=== PATIENT | female | born 1935 | race Caucasian/White ===

== ENCOUNTER 2021-04-08 15:03 | Inpatient (IN) | payer MEDICARE, SELFPAY ==
--- NOTE | ~2021-04-08 | XR_ITS ---
EXAMINATION: CHEST 2 VIEWS. LEFT HIP AND PELVIS. CLINICAL INFORMATION: Difficulty breathing. Left-sided pain COMPARISON: None TECHNIQUE: 2 views of the chest. 3 views of the left hip. FINDINGS: Chest: Lungs are clear. No acute consolidations or pleural effusions. There is advanced degenerative change in the shoulder joints. Heart size borderline with normal caliber pulmonary vessels. Left hip: There is degenerative change noted but no fracture, dislocation or destructive lesion. Pelvis and right hip intact. There is advanced degenerative change in the lower lumbar spine. XR/XR chest 2V IMPRESSION: Chronic degenerative noted. No acute findings.
--- NOTE | ~2021-04-08 | CT_ITS ---
EXAMINATION: CT HIP WITHOUT CONTRAST, LEFT CLINICAL INFORMATION: Rule out expanding hematoma. COMPARISON: CT of the left femur from the same date at 1:26 AM TECHNIQUE: Multidetector volumetric imaging was obtained through the left hip without contrast material. Multiplanar reformatted images in coronal and sagittal orientations were submitted. This CT examination was performed using dose optimization techniques as appropriate, variously including the following: *Automated exposure control *Adjustment of mA and/or kV according to patient size (this includes techniques or standardized protocols for targeted exams where dose is matched to indication/reason for exam; i.e. extremities or head) *Use of iterative reconstruction technique DLP: 1378 mGy-cm FINDINGS: A multilocular hyperdense collection in the subcutaneous fat at the lateral aspect of the proximal thigh is consistent with the known hematoma. There is marked surrounding fat stranding in this region with smaller, separate, ill-defined, satellite nonorganized components. The dominant component measures 7.2 x 4.4 x 6.4 cm, increased in size from 7.2 x 3 x 5.3 cm on the prior study. Previously seen focus of contrast within the collection has resolved. No involvement of the deep fascial planes. The bones are osteopenic. Mild osteophytes in the left hip. No acute fracture or malalignment. No aggressive osseous lesions. Calcific atherosclerosis is present within the femoral and iliac arteries. CT/CT hip LT wo con IMPRESSION: Slight interval increase in the size of the multilocular hematoma in the subcutaneous fat at the left proximal thigh.
--- NOTE | ~2021-04-08 | CT_ITS ---
EXAMINATION: CT HEAD WITHOUT CONTRAST (STROKE PROTOCOL) CLINICAL INFORMATION: Stroke protocol. Left upper extremity weakness COMPARISON: April 09, 2021 and April 08, 2021 TECHNIQUE: Contiguous axial imaging was performed from the skull base to vertex without intravenous administration of contrast. This CT examination was performed using dose optimization techniques as appropriate, variously including the following: *Automated exposure control *Adjustment of mA and/or kV according to patient size (this includes techniques or standardized protocols for targeted exams where dose is matched to indication/reason for exam; i.e. extremities or head) *Use of iterative reconstruction technique DLP: 878 mGy-cm FINDINGS: There is no intracranial hemorrhage, hematoma, or extra-axial fluid collection. The ventricles, sulci, and cisterns are prominent consistent with atrophic change. The perez-white matter differentiation appears symmetric. There is a large amount of periventricular white matter low density consistent with diffuse microangiopathy.. The calvarium appears intact. There is no pneumocephalus or orbital emphysema. The visualized sinuses and middle ears and mastoid air cells show no significant mucosal thickening. There are no air-fluid levels. CT/CT head for stroke IMPRESSION: No acute intracranial pathology. Diffuse microangiopathy with atrophy. This critical result was discussed with Dr. Mcclain at 1624 hours on April 10, 2021. It was ascertained that the content and urgency of the report was understood at the time of direct communication.
--- NOTE | ~2021-04-08 | CT_ITS ---
EXAMINATION: CT CERVICAL SPINE WITHOUT CONTRAST CLINICAL INFORMATION: Trauma, loss of consciousness. COMPARISON: CT head 04/08/2021, 02/04/2011 TECHNIQUE: Multidetector volumetric CT imaging of the cervical spine is performed without contrast in the axial plane. Additional 2D reformatted coronal and sagittal images are generated on the CT workstation and uploaded to PACS. This CT examination was performed using dose optimization techniques as appropriate, variously including the following: *Automated exposure control *Adjustment of mA and/or kV according to patient size (this includes techniques or standardized protocols for targeted exams where dose is matched to indication/reason for exam; i.e. extremities or head) *Use of iterative reconstruction technique DLP: 425 mGy-cm FINDINGS: There is no visible acute fracture line or vertebral compression or prevertebral soft tissue swelling. The odontoid appears intact. The craniocervical junction is normal. There is reversal cervical lordosis and dextrocurvature cervical spine. Multilevel degenerative disc and prominent multilevel degenerative facet changes are present. Disc narrowing is greatest at C4-C5, C5-C6, and C6-C7 with disc narrowing and endplate sclerosis and vertebral spurring. There is mild grade 0-1 spondylolisthesis at both C3-C4 and C4-C5, likely secondary to the degenerative changes. No perched facet. Paraspinal soft tissues unremarkable. There is no apical pneumothorax. CT/CT cervical spine wo con IMPRESSION: 1. No acute bony abnormality or prevertebral soft tissue swelling. 2. Multilevel degenerative disc and degenerative facet changes. 3. Reversal cervical lordosis with dextrocurvature. Mild grade 0-1 spondylolisthesis at both C3-C4 and C4-C5 likely secondary to the degenerative changes.
--- NOTE | ~2021-04-08 | CT_ITS ---
EXAMINATION: CT HEAD WITHOUT CONTRAST (STROKE PROTOCOL) CLINICAL INFORMATION: Stroke protocol. Left arm weakness and facial droop, new dysarthria. COMPARISON: None TECHNIQUE: Contiguous axial imaging was performed from the skull base to vertex without intravenous administration of contrast. This CT examination was performed using dose optimization techniques as appropriate, variously including the following: *Automated exposure control *Adjustment of mA and/or kV according to patient size (this includes techniques or standardized protocols for targeted exams where dose is matched to indication/reason for exam; i.e. extremities or head) *Use of iterative reconstruction technique DLP: 692 mGy-cm FINDINGS: There is a new area of hypodensity involving the precentral gyrus on the right. Extensive periventricular white matter hypodensities limited sensitivity for the detection of additional areas of attenuation change. No evidence of acute intracranial hemorrhage or extra-axial fluid collection. No evidence of mass lesion, mass effect or midline shift. Ventricles and sulci are commensurate in size in keeping with global volume loss. The calvarium is intact. Limited views of the paranasal sinuses are unremarkable. Mastoid air cells are well aerated and middle ear cavities are clear. Bilateral lens extractions. CT/CT head for stroke IMPRESSION: New focal hypodensity involving the right precentral gyrus is consistent with new acute ischemia. Consider follow-up with stroke MRI for further assessment, especially considering the extensive white matter changes surrounding the ventricles which limits assessment for additional foci of ischemia. This critical result was discussed with BECCA Bradley at 5:45 PM hours on 04/11/2021. It was ascertained that the content and urgency of the report was understood at the time of direct communication.
--- NOTE | ~2021-04-08 | XR_ITS ---
EXAMINATION: XR LUMBOSACRAL SPINE CLINICAL INFORMATION: Fall. COMPARISON: Lumbar spine 08/09/2010. MR lumbar spine 10/30/2010 TECHNIQUE: Three views of the lumbosacral spine. FINDINGS: Chronic depression of the superior endplate of L1 vertebrae unchanged since MR exam of 10/30/2010. No acute fracture. Normal alignment of the vertebrae. There is advanced multilevel degenerative spondylosis. Multilevel disc height narrowing and vertebral endplate spurring with facet joint arthrosis. This is most significant at the lower lumbar discs levels. Heavy vascular calcification of the abdominal aorta. There is no aneurysm. XR/XR lumbar spine 2-3V IMPRESSION: No acute abnormality of lumbar spine. Marked degenerative spondylosis of the spine. Chronic central depression superior endplate of L1.
--- NOTE | ~2021-04-08 | XR_ITS ---
EXAMINATION: CHEST 2 VIEWS. LEFT HIP AND PELVIS. CLINICAL INFORMATION: Difficulty breathing. Left-sided pain COMPARISON: None TECHNIQUE: 2 views of the chest. 3 views of the left hip. FINDINGS: Chest: Lungs are clear. No acute consolidations or pleural effusions. There is advanced degenerative change in the shoulder joints. Heart size borderline with normal caliber pulmonary vessels. Left hip: There is degenerative change noted but no fracture, dislocation or destructive lesion. Pelvis and right hip intact. There is advanced degenerative change in the lower lumbar spine. XR/XR hip LT w PEL1V IMPRESSION: Chronic degenerative noted. No acute findings.
--- NOTE | ~2021-04-08 | CT_ITS ---
EXAMINATION: CT LEFT FEMUR WITH CONTRAST CLINICAL INFORMATION: Concerning for increasing hematoma in lateral femur COMPARISON: Left hip radiographs 04/08/2021 TECHNIQUE: 65 mL Omnipaque 350 intravenous contrast was utilized. Multidetector helical imaging was performed through the left femur. Coronal and sagittal reformatted images were created. DOSE LOWERING TECHNIQUES: This CT examination was performed using dose optimization techniques as appropriate, variously including the following: - Automated exposure control - Adjustment of mA and/or kV according to patient size (this includes techniques or standardized protocols for targeted exams were dose is matched to indication/reason for exam; i.e. extremities or head) - Use of iterative reconstruction technique DLP: 355 mGy-cm FINDINGS: Significantly limited assessment in some regions due to motion artifact. Alignment across the left hip is anatomic with joint space narrowing. No acute fracture is seen. There is degenerative change at the pubic symphysis. Well-corticated, chronic appearing small calcification is noted posterior to the left hip. There is subcutaneous edema lateral to the proximal left femur along with more confluent soft tissue attenuation suspicious for hematoma extending for approximately 8 cm in diameter with surrounding contusion. Extensive vascular calcifications are noted. CT/CT femur LT w con IMPRESSION: Subcutaneous hematoma in the lateral proximal thigh with surrounding contusion.
--- NOTE | ~2021-04-08 | XR_ITS ---
EXAMINATION: XR CHEST CLINICAL INFORMATION: Central line COMPARISON: Chest radiograph from 04/08/2021 TECHNIQUE: Frontal view of the chest was obtained. FINDINGS: Interval placement of a right central venous catheter with its distal tip in the mid to distal SVC. Bilateral low lung volumes. No pneumothorax. Trachea is midline. Pacer pad in the mid chest. Cardiac mediastinal silhouette is stable. No large pleural effusion. Degenerative changes of the thoracolumbar spine and bilateral glenohumeral joints, left greater than right. Soft tissues are unremarkable. XR/XR chest 1V IMPRESSION: 1. Interval placement of a right central venous catheter with its distal tip in the mid to distal SVC. 2. Bilateral low lung volumes.
--- NOTE | ~2021-04-08 | CT_ITS ---
EXAMINATION: CT HEAD WITHOUT CONTRAST CLINICAL INFORMATION: Altered mental status COMPARISON: 04/08/2021 TECHNIQUE: Contiguous axial imaging was performed from the skull base to vertex without intravenous administration of contrast. This CT examination was performed using dose optimization techniques as appropriate, variously including the following: *Automated exposure control *Adjustment of mA and/or kV according to patient size (this includes techniques or standardized protocols for targeted exams where dose is matched to indication/reason for exam; i.e. extremities or head) *Use of iterative reconstruction technique DLP: 1080 mGy-cm FINDINGS: This exam is limited from patient motion. Given this on the imaging submitted no midline shift or mass effect or hemorrhage is visualized. Very limited evaluation of the frontal region. Once again diffuse white matter ischemic change. There is no fracture on the bone windows. Again limited CT/CT head/brain wo con IMPRESSION: Very limited exam from motion as described. On the imaging submitted I am not seeing an acute finding but if clinically warranted consider rescanning Once again atrophy and white matter ischemic changes.
--- NOTE | ~2021-04-08 | CT_ITS ---
EXAMINATION: CT HEAD WITHOUT CONTRAST CLINICAL INFORMATION: Trauma, loss of consciousness COMPARISON: CT head 02/04/2011 TECHNIQUE: Contiguous axial imaging was performed from the skull base to vertex without intravenous administration of contrast. Additional 2-D coronal and sagittal reformatted images are generated on the CT workstation and uploaded to PACS. This CT examination was performed using dose optimization techniques as appropriate, variously including the following: *Automated exposure control *Adjustment of mA and/or kV according to patient size (this includes techniques or standardized protocols for targeted exams where dose is matched to indication/reason for exam; i.e. extremities or head) *Use of iterative reconstruction technique DLP: 1188 mGy-cm FINDINGS: There is no intracranial hemorrhage, hematoma, or extra-axial fluid collection. There are generalized atrophic changes with prominence of the cortical sulci and fissures and cisterns and mild ventricular prominence. No hydrocephalus. There is interval moderate to prominent bilateral periventricular white matter gliosis since prior imaging 2010. No mass effect or edema. Findings are likely related to chronic small vessel ischemic changes.. There are some benign bulky falx calcifications again seen anteriorly. There is no visible acute territorial infarct or mass lesion. The calvarium appears intact. There is no pneumocephalus or orbital emphysema. The visualized sinuses and middle ears and mastoid air cells show no significant mucosal thickening. There are no air-fluid levels. CT/CT head/brain wo con IMPRESSION: 1. No acute intracranial hemorrhage, hematoma, or extra-axial fluid collection. 2. Generalized atrophic changes with moderate to prominent bilateral periventricular white matter gliosis likely related to chronic small vessel ischemic changes. No mass effect or edema.
[2021-04-08 15:22] VITALS: BP 113/64; PULSE 104; RESP 18; TEMP 36.6; O2SAT 97; BMI 32.5
--- NOTE | 2021-04-08 15:25 | ECG_ITS ---
Test Reason : FALL Blood Pressure : / mmHG Vent. Rate : 110 BPM Atrial Rate : 000 BPM P-R Int : 000 ms QRS Dur : 074 ms QT Int : 334 ms P-R-T Axes : 000 -17 -08 degrees QTc Int : 452 ms Atrial fibrillation with rapid ventricular response Nonspecific ST and T wave abnormality Abnormal ECG When compared with ECG of 11-SEP-2008 06:52, Atrial fibrillation has replaced Sinus rhythm Vent. rate has increased BY 43 BPM Nonspecific T wave abnormality now evident in Inferior leads Nonspecific T wave abnormality now evident in Anterior leads Referred By: China Stallworth Electronically Signed By:Ankit Batres
--- NOTE | 2021-04-08 15:41 | ED.FALL ---
HPI - Fall General Chief Complaint: Fall <China Stallworth NP - Last Filed: 04/08/21 18:01> Stated Complaint: FALL <China Stallworth NP - Last Filed: 04/08/21 18:01> Time Seen by Provider: 04/08/21 15:19 <China Stallworth NP - Last Filed: 04/08/21 18:01> Source: EMS <China Stallworth NP - Last Filed: 04/08/21 18:01> Mode of arrival: EMS <China Stallworth NP - Last Filed: 04/08/21 18:01> Limitations: altered mental status <China Stallworth NP - Last Filed: 04/08/21 18:01> History of Present Illness HPI Narrative: 85-year-old female with a history of known left shoulder fracture, AR with stents, afib on eliquis, high blood pressure, high cholesterol, hypothyroidism, congestive heart failure, COPD, chronic neuropathy and pain here with complaints of fall. HPI is very limited due to some confusion. Prior EMS the patient was sitting in her living room on a chair. She stood up and felt dizzy and fell striking her left shoulder and left hip on the corner the chair. This was witnessed by a DOCUMENT MANAGEMENT ANALYST. NO LOC. EMS tells me there was no head strike. But her who I spoke to and per the patient there was a head strike. The patient is on Eliquis and Plavix. EMS was called and the patient was unable to get up independently and so she was transported here to the emergency department. Patient tells me that she is feeling at baseline. She tells me that she does occasionally feel dizzy with movement and has felt this way for quite some time. She denies any associated chest pain, abdominal pain, vomiting, headache, vision changes. She is complaining of left hip pain. Again HPI is limited due to the patient being quite repetitive and limited with information. I called and spoke to Philipp who tells me patient has had forgetfullness and confusion > 1 yr but no diagnosis of dementia. He states we've been for so long and I can't do that to her. <China Stallworth NP - Last Filed: 04/08/21 18:01> Related Data Home Medications: Home Medications Medication Instructions Recorded Confirmed apixaban 5 mg tablet (Eliquis) 5 mg PO BID 04/08/21 04/08/21 calcium citrate 200 mg 2 tab PO BEDTIME 04/08/21 04/08/21 calcium-vitamin D3 6.25 mcg (250 unit) tablet clopidogrel 75 mg tablet 1 tab PO DAILY 04/08/21 04/08/21 duloxetine 30 mg capsule,delayed 1 cap PO BID 04/08/21 04/08/21 release ezetimibe 10 mg tablet 1 tab PO DAILY 04/08/21 04/08/21 fluticasone fur. 100 mcg-umeclid 1 puff INHALATION DAILY 04/08/21 04/08/21 62.5 mcg-vilant 25 mcg inhalat.powder (Trelegy Ellipta) furosemide 40 mg tablet 1 tab PO DAILY 04/08/21 04/08/21 icosapent ethyl 1 gram capsule 2 cap PO BID 04/08/21 04/08/21 (Vascepa) levothyroxine 50 mcg tablet 1 tab PO DAILY 04/08/21 04/08/21 metoprolol succinate 50 mg 1 tab PO DAILY 04/08/21 04/08/21 tablet,extended release 24 hr potassium chloride 10 mEq 40 meq PO DAILY 04/08/21 04/08/21 tablet,extended release(part/cryst) (Klor-Con M) <China Stallworth NP - Last Filed: 04/08/21 18:01> Allergies/Adverse Reactions: Allergies Allergy/AdvReac Type Severity Reaction Status Date / Time Penicillins Allergy Mild RASH Verified 04/08/21 15:30 Eotonib-NDG-DjD Reductase Allergy Unknown MUSCLE Verified 04/08/21 15:30 Inhibitor ACHES AND [Azuibpb-Fzn-Nfz Reductase STIFFNESS Inhibitor] Sulfa (Sulfonamide Allergy Unknown RASH Verified 04/08/21 15:30 Antibiotics) <China Stallworth NP - Last Filed: 04/08/21 18:01> Review of Systems Review of Systems: Limited d/t confusion <China Stallworth NP - Last Filed: 04/08/21 18:01> Yes all other systems are reviewed and are negative <China Stallworth NP - Last Filed: 04/08/21 18:01> Constitutional: Constitutional: Reports no additional constitutional complaints, Denies body ache(s), Denies chills, Denies fever(s), Denies headache(s) and Denies weakness <China Stallworth NP - Last Filed: 04/08/21 18:01> Eyes: Eyes: Reports no additional eye complaints and Denies change in vision <China Stallworth NP - Last Filed: 04/08/21 18:01> ENT: Reports system reviewed and no additional complaints, except as documented, Reports dizziness, Denies headache(s), Denies nasal congestion, Denies nasal discharge and Denies neck pain <China Stallworth NP - Last Filed: 04/08/21 18:01> Cardiovascular: Cardiovascular: Reports no additional cardiovascular complaints, Denies chest pain, Denies leg edema and Denies dyspnea <China Stallworth NP - Last Filed: 04/08/21 18:01> Respiratory: Respiratory: Reports no additional respiratory complaints, Denies cough and Denies dyspnea <China Stallworth NP - Last Filed: 04/08/21 18:01> Gastrointestinal: Gastrointestinal: Reports no additional gastrointestinal complaints, Denies abdominal pain, Denies diarrhea, Denies nausea and Denies vomiting <China Stallworth NP - Last Filed: 04/08/21 18:01> Genitourinary: Genitourinary: Reports no additional female genitourinary complaints and Denies urinary incontinence <China Stallworth NP - Last Filed: 04/08/21 18:01> Musculoskeletal: Musculoskeletal: Reports no additional musculoskeletal complaints, Denies back pain, Reports arthralgias, Denies joint swelling, Denies neck pain, Denies numbness and Denies tingling <China Stallworth NP - Last Filed: 04/08/21 18:01> Integumentary/Breasts: Skin/Breast: Reports system reviewed and no additional complaints, except as docu and Denies rash <China Stallworth NP - Last Filed: 04/08/21 18:01> Neurologic: Reports system reviewed and no additional complaints, except as documented, Reports confusion, Reports dizziness, Denies headache(s), Denies numbness, Denies tingling and Denies weakness <China Stallworth NP - Last Filed: 04/08/21 18:01> Psychiatric: Psychiatric: Reports confusion <China Stallworth NP - Last Filed: 04/08/21 18:01> PMFSH Past Medical History Attestation statement: The following information was validated with the patient. <China Stallworth NP - Last Filed: 04/08/21 18:01> Source: old records reviewed and nursing notes reviewed <China Stallworth NP - Last Filed: 04/08/21 18:01> Medical History: Medical History Atrial fibrillation CHF (congestive heart failure) COPD (chronic obstructive pulmonary disease) High cholesterol HTN (hypertension) Hypothyroid Osteoporosis <China Stallworth NP - Last Filed: 04/08/21 18:01> Social History Social History: Social History Patient Tobacco Use Status: Former Tobacco user Use of substances other than those prescribed or required for medical reasons: No Advance Directives: No Advance Directives Information Provided: Yes <China Stallworth NP - Last Filed: 04/08/21 18:01> Physical Exam Vital Signs: Vital Signs: Last Vital Signs Temp 97.8 F 04/08/21 15:22 Pulse 82 04/09/21 06:23 Resp 18 04/09/21 06:23 BP 134/105 H 04/09/21 06:23 Pulse Ox 98 04/09/21 06:23 BMI result Body Mass Index 32.5 <China Stallworth NP - Last Filed: 04/08/21 18:01> Vital Signs: Last Vital Signs Temp 97.8 F 04/08/21 15:22 Pulse 82 04/09/21 06:23 Resp 18 04/09/21 06:23 BP 134/105 H 04/09/21 06:23 Pulse Ox 98 04/09/21 06:23 BMI result Body Mass Index 32.5 <Brittnee Velasco MD - Last Filed: 04/08/21 21:26> Vital Signs: Last Vital Signs Temp 97.8 F 04/08/21 15:22 Pulse 82 04/09/21 06:23 Resp 18 04/09/21 06:23 BP 134/105 H 04/09/21 06:23 Pulse Ox 98 04/09/21 06:23 BMI result Body Mass Index 32.5 <Lora Walden MD - Last Filed: 04/09/21 00:33> Vital Signs: Last Vital Signs Temp 97.8 F 04/08/21 15:22 Pulse 82 04/09/21 06:23 Resp 18 04/09/21 06:23 BP 134/105 H 04/09/21 06:23 Pulse Ox 98 04/09/21 06:23 BMI result Body Mass Index 32.5 <BECCA Menchaca - Last Filed: 04/09/21 02:31> Vital Signs: Last Vital Signs Temp 97.8 F 04/08/21 15:22 Pulse 82 04/09/21 06:23 Resp 18 04/09/21 06:23 BP 134/105 H 04/09/21 06:23 Pulse Ox 98 04/09/21 06:23 BMI result Body Mass Index 32.5 <BECCA Lemon - Last Filed: 04/09/21 09:03> Const: General: healthy appearing, alert and confusion <China Stallworth NP - Last Filed: 04/08/21 18:01> Orientation/consciousness: oriented to person and confusion <China Stallworth NP - Last Filed: 04/08/21 18:01> Limitations: altered mental status <China Stallworth NP - Last Filed: 04/08/21 18:01> HENMT: Head: Yes normal to inspection <China Stallworth NP - Last Filed: 04/08/21 18:01> Ears: hearing grossly normal bilaterally and TM's normal bilaterally <China Stallworth NP - Last Filed: 04/08/21 18:01> General nose exam: Normal external nose present <China Stallworth NP - Last Filed: 04/08/21 18:01> Face and sinus: Yes normal facial exam <China Stallworth NP - Last Filed: 04/08/21 18:01> Mouth: Normal oral and palatal mucosa present <China Stallworth NP - Last Filed: 04/08/21 18:01> Throat: Yes posterior oropharynx normal, Yes tonsils normal and Yes uvula midline <China Stallworth NP - Last Filed: 04/08/21 18:01> Eyes: General: appearance normal, both eyes and all related structures <China Stallworth NP - Last Filed: 04/08/21 18:01> Pupils: Equal, round and reactive pupils present <China Stallworth NP - Last Filed: 04/08/21 18:01> Neck: Neck: Yes normal visual inspection, Yes full ROM, Yes no lymphadenopathy and Yes no meningeal signs <China Stallworth NP - Last Filed: 04/08/21 18:01> Chest: Chest palpation & inspection: normal inspection of the chest <China Stallworth NP - Last Filed: 04/08/21 18:01> Resp: Effort & Inspection: normal respiratory effort <China Stallworth NP - Last Filed: 04/08/21 18:01> Auscultation: clear to auscultation bilaterally <China Stallworth NP - Last Filed: 04/08/21 18:01> Cardio: Rate: regular rate <China Stallworth NP - Last Filed: 04/08/21 18:01> Rhythm: regular rhythm <China Stallworth NP - Last Filed: 04/08/21 18:01> Peripheral pulses: Peripheral pulses 2+ throughout <China Stallworth NP - Last Filed: 04/08/21 18:01> GI: Inspection: Yes normal to inspection <China Stallworth NP - Last Filed: 04/08/21 18:01> Palpation (GI): Soft to palpation and nontender <China Stallworth NP - Last Filed: 04/08/21 18:01> Auscultation: normal bowel sounds <China Stallworth NP - Last Filed: 04/08/21 18:01> Back/Spine/Pelvis: Thoracic/Lumbar Spine: thoracic and lumbar spine normal to inspection <China Stallwroth NP - Last Filed: 04/08/21 18:01> Skin: General skin exam: no rashes or lesions noted <China Stallworth NP - Last Filed: 04/08/21 18:01> Neuro: General: oriented to person, moves all extremities, no meningeal signs, no focal motor deficits, normal sensation to monofilament and confusion <China Stallworth NP - Last Filed: 04/08/21 18:01> Cranial nerves: Yes Equal, round and reactive pupils present <China Stallworth NP - Last Filed: 04/08/21 18:01> Motor exam (neuro): 5/5 motor strength present throughout <China Stallworth NP - Last Filed: 04/08/21 18:01> Extrem: Other: For the last lateral hip there is a hematoma that is small there is some mild tenderness over the site. Range of motion of the hip is limited due to pain. There is no shortening or deformity or rotation noted <China Stallworth NP - Last Filed: 04/08/21 18:01> General: Yes normal to inspection <China Stallworth NP - Last Filed: 04/08/21 18:01> Course Course Course Narrative: 85-year-old female here with reports of fall which occurred at home just prior to arrival. History of present illness is limited due to some underlying confusion and in addition the patient's is not very reliable to obtain information from. I did speak to both the patient and her . It seems that she may have been sitting in a chair with a DOCUMENT MANAGEMENT ANALYST at her side and stood up felt dizzy causing her to fall hitting her left hip on the chair. There may or may not have been a head strike but there was no loss of consciousness. Patient on arrival to complaining of hip pain. She is alert and oriented to only. I spoke to the and this does appear to be the patient's baseline. Tells me that she has no formal diagnosis of dementia and seems quite apprehensive to bring this up with her primary care doctor. Will check labs, EKG, CT head/cervical spine, CXR/left hip x-ray, COVID screen 1750-CT head and neck are negative. Chest x-ray and left hip x-ray show no acute finding. Labs are unremarkable with the exception of an indeterminate troponin. No EKG changes reports of chest pain. Plan for repeat 3 hour troponin. Additional labs are unremarkable. COVID screen negative. UA is pending. I called and spoke to both the patient's PHILIPP and her daughter Lesli. Patient is quite confused and it seems like she likely has some underlying dementia although the is quite resistant to a diagnosis. The daughter tells me that the patient falls often at home and she often does not sleep well and is up throughout the night. This is quite stressful for for her PHILIPP. They do have physical therapy services and your services at come into the home. Daughter is quite concerned that she may need further services at this time. Therefore [facility] We will have Physical therapy evaluate her in the morning and get case management involved. The family plans on having a family meeting [facility] to discuss what is best for Debbie. -placed in physician observation pending disposition philipp [phone]. daughter lesli [phone]-Sign out to Dwayne HUDSON pending repeat troponin, UA. Medications reconciled. <China Stallworth NP - Last Filed: 04/08/21 18:01> Reevaluation(s) Reevaluation #1: I was informed by the patient's nurse that the patient was found on the floor, sitting. Seems that the patient lowered herself to the end of her bed and slid down to the floor. Lumbar x-ray pending. Sign-out given to Dr. Walden <Brittnee Velasco MD - Last Filed: 04/08/21 21:26> Time: 21:26 <Brittnee Velasco MD - Last Filed: 04/08/21 21:26> Reevaluation #2: Reviewed imaging of lumbar spine and there are no acute findings. Patient reports she is otherwise pain free. <Lora Walden MD - Last Filed: 04/09/21 00:33> Time: 00:33 <Lora Walden MD - Last Filed: 04/09/21 00:33> Reevaluation #3: Nurse made me aware that there was expansion of patient's left femur hematoma and images were negative for fracture. Edis wrap was placed around hematoma. Repeat CBC was ordered and came back at baseline. Patient is sent for femur CT scan to rule out any extravasation and fracture. UA normal. <BECCA Menchaca - Last Filed: 04/09/21 02:31> Additional Reevaluation(s): Patient is sleeping, no apparent distress, respiration even and regular, heart regular rate and rhythm, vital signs were stable. Will continue to monitor, physician observation continues, awaiting physical therapy evaluation <BECCA Lemon - Last Filed: 04/09/21 09:03> MDM - Fall Medical Records Attestation: I reviewed the patient's medical records. <China Stallworth NP - Last Filed: 04/08/21 18:01> Lab Data Attestation: I reviewed the patient's lab results. <China Stallworth NP - Last Filed: 04/08/21 18:01> Result diagrams: : 04/09/21 01:32 04/08/21 15:58 <China Stallworth NP - Last Filed: 04/08/21 18:01> Labs: Lab Results 04/08/21 04/08/21 04/08/21 Range/Units 15:58 15:58 15:58 WBC 8.3 (4.8-10.8) X10*3/uL RBC 4.50 (4.20-5.50) X10*6/uL Hgb 14.9 (12.0-16.0) g/dl Hct 44.6 (37.0-47.0) % MCV 99.1 H (80.0-98.0) fL MCH 33.1 H (27.0-33.0) pg MCHC 33.4 (31.0-35.0) g/dl RDW 13.7 (11.0-16.0) % Plt Count 328 (160-400) X10*3/uL MPV 10.7 (9.4-12.3) fL Immature Gran % (Auto) 0.4 (0.0-0.4) % Neut % (Auto) 62.3 (45-73) % Lymph % (Auto) 23.2 (20-40) % Swisher % (Auto) 11.8 H (2-11) % Eos % (Auto) 1.8 (0-4) % Baso % (Auto) 0.5 (0-2) % Lymph # (Auto) 1.9 (1.2-4.9) X10*3/uL Swisher # (Auto) 1.0 (0.1-1.2) X10*3/uL Eos # (Auto) 0.2 (0.0-0.4) X10*3/uL Baso # (Auto) 0.0 (0.0-0.2) X10*3/uL Abs Immat Gran (auto) 0.03 (0.00-0.03) X10*3/uL Absolute Neuts (auto) 5.2 (2.0-8.3) x10*3/uL Absolute Nucleated RBC 0.000 (0.0-0.012) X10*3/uL Nucleated RBC % (auto) 0.0 (0.0-0.2) /100WBC PT 16.2 H (9.9-13.0) SEC INR 1.4 H (0.9-1.1) Sodium 139 (135-145) mmol/L Potassium 4.3 (3.3-5.1) mmol/L Chloride 101 (96-108) mmol/L Carbon Dioxide 29 (22-29) mmol/L Anion Gap 13 (12-20) BUN 17 H (9-16) mg/dL Creatinine 1.34 (0.5-1.4) mg/dL Estim Creat Clear Calc 31.3 Estimated GFR 38 Random Glucose 120 H (60-115) mg/dL Calcium 10.0 (8.4-10.2) mg/dL Magnesium 2.1 (1.6-2.6) mg/dL Total Bilirubin 0.8 (0.0-1.0) mg/dL Direct Bilirubin 0.3 (0.0-0.5) mg/dL AST 19 (5-31) U/L ALT 17 (0-31) U/L Alkaline Phosphatase 58 (39-117) U/L Troponin I High Sens (<3.5-17.0) ng/L Total Protein 6.3 L (6.5-8.0) g/dL Albumin 3.7 (3.5-5.0) g/dL Urine Color Urine Appearance Urine pH (5.0-8.0) Ur Specific [employer] (1.005-1.025) Urine Protein (NEG-TRACE) MG/DL Urine Glucose (UA) (NEG) MG/DL Urine Ketones (NEG) MG/DL Urine Blood (NEG) Urine Nitrite (NEG) Ur Leukocyte Esterase (NEG) COVID-19 (DC) (Negative) COVID-19 Clin Com 04/08/21 04/08/21 04/08/21 Range/Units 15:58 15:58 23:49 WBC (4.8-10.8) X10*3/uL RBC (4.20-5.50) X10*6/uL Hgb (12.0-16.0) g/dl Hct (37.0-47.0) % MCV (80.0-98.0) fL MCH (27.0-33.0) pg MCHC (31.0-35.0) g/dl RDW (11.0-16.0) % Plt Count (160-400) X10*3/uL MPV (9.4-12.3) fL Immature Gran % (Auto) (0.0-0.4) % Neut % (Auto) (45-73) % Lymph % (Auto) (20-40) % Swisher % (Auto) (2-11) % Eos % (Auto) (0-4) % Baso % (Auto) (0-2) % Lymph # (Auto) (1.2-4.9) X10*3/uL Swisher # (Auto) (0.1-1.2) X10*3/uL Eos # (Auto) (0.0-0.4) X10*3/uL Baso # (Auto) (0.0-0.2) X10*3/uL Abs Immat Gran (auto) (0.00-0.03) X10*3/uL Absolute Neuts (auto) (2.0-8.3) x10*3/uL Absolute Nucleated RBC (0.0-0.012) X10*3/uL Nucleated RBC % (auto) (0.0-0.2) /100WBC PT (9.9-13.0) SEC INR (0.9-1.1) Sodium (135-145) mmol/L Potassium (3.3-5.1) mmol/L Chloride (96-108) mmol/L Carbon Dioxide (22-29) mmol/L Anion Gap (12-20) BUN (9-16) mg/dL Creatinine (0.5-1.4) mg/dL Estim Creat Clear Calc Estimated GFR Random Glucose (60-115) mg/dL Calcium (8.4-10.2) mg/dL Magnesium (1.6-2.6) mg/dL Total Bilirubin (0.0-1.0) mg/dL Direct Bilirubin (0.0-0.5) mg/dL AST (5-31) U/L ALT (0-31) U/L Alkaline Phosphatase (39-117) U/L Troponin I High Sens 12.2 9.5 (<3.5-17.0) ng/L Total Protein (6.5-8.0) g/dL Albumin (3.5-5.0) g/dL Urine Color Urine Appearance Urine pH (5.0-8.0) Ur Specific [employer] (1.005-1.025) Urine Protein (NEG-TRACE) MG/DL Urine Glucose (UA) (NEG) MG/DL Urine Ketones (NEG) MG/DL Urine Blood (NEG) Urine Nitrite (NEG) Ur Leukocyte Esterase (NEG) COVID-19 (DC) Negative (Negative) COVID-19 Clin Com See Note 04/09/21 04/09/21 Range/Units 01:32 01:32 WBC 11.9 H (4.8-10.8) X10*3/uL RBC 4.33 (4.20-5.50) X10*6/uL Hgb 14.5 (12.0-16.0) g/dl Hct 43.0 (37.0-47.0) % MCV 99.3 H (80.0-98.0) fL MCH 33.5 H (27.0-33.0) pg MCHC 33.7 (31.0-35.0) g/dl RDW 13.5 (11.0-16.0) % Plt Count 337 (160-400) X10*3/uL MPV 11.0 (9.4-12.3) fL Immature Gran % (Auto) 0.6 H (0.0-0.4) % Neut % (Auto) 66.8 (45-73) % Lymph % (Auto) 21.3 (20-40) % Swisher % (Auto) 10.6 (2-11) % Eos % (Auto) 0.3 (0-4) % Baso % (Auto) 0.4 (0-2) % Lymph # (Auto) 2.5 (1.2-4.9) X10*3/uL Swisher # (Auto) 1.3 H (0.1-1.2) X10*3/uL Eos # (Auto) 0.0 (0.0-0.4) X10*3/uL Baso # (Auto) 0.1 (0.0-0.2) X10*3/uL Abs Immat Gran (auto) 0.07 H (0.00-0.03) X10*3/uL Absolute Neuts (auto) 8.0 (2.0-8.3) x10*3/uL Absolute Nucleated RBC 0.000 (0.0-0.012) X10*3/uL Nucleated RBC % (auto) 0.0 (0.0-0.2) /100WBC PT (9.9-13.0) SEC INR (0.9-1.1) Sodium (135-145) mmol/L Potassium (3.3-5.1) mmol/L Chloride (96-108) mmol/L Carbon Dioxide (22-29) mmol/L Anion Gap (12-20) BUN (9-16) mg/dL Creatinine (0.5-1.4) mg/dL Estim Creat Clear Calc Estimated GFR Random Glucose (60-115) mg/dL Calcium (8.4-10.2) mg/dL Magnesium (1.6-2.6) mg/dL Total Bilirubin (0.0-1.0) mg/dL Direct Bilirubin (0.0-0.5) mg/dL AST (5-31) U/L ALT (0-31) U/L Alkaline Phosphatase (39-117) U/L Troponin I High Sens (<3.5-17.0) ng/L Total Protein (6.5-8.0) g/dL Albumin (3.5-5.0) g/dL Urine Color YELLOW Urine Appearance CLEAR Urine pH 6.0 (5.0-8.0) Ur Specific [employer] 1.010 (1.005-1.025) Urine Protein NEG (NEG-TRACE) MG/DL Urine Glucose (UA) NEG (NEG) MG/DL Urine Ketones NEG (NEG) MG/DL Urine Blood NEG (NEG) Urine Nitrite NEG (NEG) Ur Leukocyte Esterase NEG (NEG) COVID-19 (DC) (Negative) COVID-19 Clin Com <China Stallworth, PER DIEM REGISTERED NURSE - Last Filed: 04/08/21 18:01> Lab Results 04/08/21 04/08/21 04/08/21 Range/Units 15:58 15:58 15:58 WBC 8.3 (4.8-10.8) X10*3/uL RBC 4.50 (4.20-5.50) X10*6/uL Hgb 14.9 (12.0-16.0) g/dl Hct 44.6 (37.0-47.0) % MCV 99.1 H (80.0-98.0) fL MCH 33.1 H (27.0-33.0) pg MCHC 33.4 (31.0-35.0) g/dl RDW 13.7 (11.0-16.0) % Plt Count 328 (160-400) X10*3/uL MPV 10.7 (9.4-12.3) fL Immature Gran % (Auto) 0.4 (0.0-0.4) % Neut % (Auto) 62.3 (45-73) % Lymph % (Auto) 23.2 (20-40) % Swisher % (Auto) 11.8 H (2-11) % Eos % (Auto) 1.8 (0-4) % Baso % (Auto) 0.5 (0-2) % Lymph # (Auto) 1.9 (1.2-4.9) X10*3/uL Swisher # (Auto) 1.0 (0.1-1.2) X10*3/uL Eos # (Auto) 0.2 (0.0-0.4) X10*3/uL Baso # (Auto) 0.0 (0.0-0.2) X10*3/uL Abs Immat Gran (auto) 0.03 (0.00-0.03) X10*3/uL Absolute Neuts (auto) 5.2 (2.0-8.3) x10*3/uL Absolute Nucleated RBC 0.000 (0.0-0.012) X10*3/uL Nucleated RBC % (auto) 0.0 (0.0-0.2) /100WBC PT 16.2 H (9.9-13.0) SEC INR 1.4 H (0.9-1.1) Sodium 139 (135-145) mmol/L Potassium 4.3 (3.3-5.1) mmol/L Chloride 101 (96-108) mmol/L Carbon Dioxide 29 (22-29) mmol/L Anion Gap 13 (12-20) BUN 17 H (9-16) mg/dL Creatinine 1.34 (0.5-1.4) mg/dL Estim Creat Clear Calc 31.3 Estimated GFR 38 Random Glucose 120 H (60-115) mg/dL Calcium 10.0 (8.4-10.2) mg/dL Magnesium 2.1 (1.6-2.6) mg/dL Total Bilirubin 0.8 (0.0-1.0) mg/dL Direct Bilirubin 0.3 (0.0-0.5) mg/dL AST 19 (5-31) U/L ALT 17 (0-31) U/L Alkaline Phosphatase 58 (39-117) U/L Troponin I High Sens (<3.5-17.0) ng/L Total Protein 6.3 L (6.5-8.0) g/dL Albumin 3.7 (3.5-5.0) g/dL Urine Color Urine Appearance Urine pH (5.0-8.0) Ur Specific [employer] (1.005-1.025) Urine Protein (NEG-TRACE) MG/DL Urine Glucose (UA) (NEG) MG/DL Urine Ketones (NEG) MG/DL Urine Blood (NEG) Urine Nitrite (NEG) Ur Leukocyte Esterase (NEG) COVID-19 (DC) (Negative) COVID-19 Clin Com 12/27/21 12/27/21 12/27/21 Range/Units 15:58 15:58 23:49 WBC (4.8-10.8) X10*3/uL RBC (4.20-5.50) X10*6/uL Hgb (12.0-16.0) g/dl Hct (37.0-47.0) % MCV (80.0-98.0) fL MCH (27.0-33.0) pg MCHC (31.0-35.0) g/dl RDW (11.0-16.0) % Plt Count (160-400) X10*3/uL MPV (9.4-12.3) fL Immature Gran % (Auto) (0.0-0.4) % Neut % (Auto) (45-73) % Lymph % (Auto) (20-40) % Swisher % (Auto) (2-11) % Eos % (Auto) (0-4) % Baso % (Auto) (0-2) % Lymph # (Auto) (1.2-4.9) X10*3/uL Swisher # (Auto) (0.1-1.2) X10*3/uL Eos # (Auto) (0.0-0.4) X10*3/uL Baso # (Auto) (0.0-0.2) X10*3/uL Abs Immat Gran (auto) (0.00-0.03) X10*3/uL Absolute Neuts (auto) (2.0-8.3) x10*3/uL Absolute Nucleated RBC (0.0-0.012) X10*3/uL Nucleated RBC % (auto) (0.0-0.2) /100WBC PT (9.9-13.0) SEC INR (0.9-1.1) Sodium (135-145) mmol/L Potassium (3.3-5.1) mmol/L Chloride (96-108) mmol/L Carbon Dioxide (22-29) mmol/L Anion Gap (12-20) BUN (9-16) mg/dL Creatinine (0.5-1.4) mg/dL Estim Creat Clear Calc Estimated GFR Random Glucose (60-115) mg/dL Calcium (8.4-10.2) mg/dL Magnesium (1.6-2.6) mg/dL Total Bilirubin (0.0-1.0) mg/dL Direct Bilirubin (0.0-0.5) mg/dL AST (5-31) U/L ALT (0-31) U/L Alkaline Phosphatase (39-117) U/L Troponin I High Sens 12.2 9.5 (<3.5-17.0) ng/L Total Protein (6.5-8.0) g/dL Albumin (3.5-5.0) g/dL Urine Color Urine Appearance Urine pH (5.0-8.0) Ur Specific [employer] (1.005-1.025) Urine Protein (NEG-TRACE) MG/DL Urine Glucose (UA) (NEG) MG/DL Urine Ketones (NEG) MG/DL Urine Blood (NEG) Urine Nitrite (NEG) Ur Leukocyte Esterase (NEG) COVID-19 (DC) Negative (Negative) COVID-19 Clin Com See Note 04/09/21 04/09/21 Range/Units 01:32 01:32 WBC 11.9 H (4.8-10.8) X10*3/uL RBC 4.33 (4.20-5.50) X10*6/uL Hgb 14.5 (12.0-16.0) g/dl Hct 43.0 (37.0-47.0) % MCV 99.3 H (80.0-98.0) fL MCH 33.5 H (27.0-33.0) pg MCHC 33.7 (31.0-35.0) g/dl RDW 13.5 (11.0-16.0) % Plt Count 337 (160-400) X10*3/uL MPV 11.0 (9.4-12.3) fL Immature Gran % (Auto) 0.6 H (0.0-0.4) % Neut % (Auto) 66.8 (45-73) % Lymph % (Auto) 21.3 (20-40) % Swisher % (Auto) 10.6 (2-11) % Eos % (Auto) 0.3 (0-4) % Baso % (Auto) 0.4 (0-2) % Lymph # (Auto) 2.5 (1.2-4.9) X10*3/uL Swisher # (Auto) 1.3 H (0.1-1.2) X10*3/uL Eos # (Auto) 0.0 (0.0-0.4) X10*3/uL Baso # (Auto) 0.1 (0.0-0.2) X10*3/uL Abs Immat Gran (auto) 0.07 H (0.00-0.03) X10*3/uL Absolute Neuts (auto) 8.0 (2.0-8.3) x10*3/uL Absolute Nucleated RBC 0.000 (0.0-0.012) X10*3/uL Nucleated RBC % (auto) 0.0 (0.0-0.2) /100WBC PT (9.9-13.0) SEC INR (0.9-1.1) Sodium (135-145) mmol/L Potassium (3.3-5.1) mmol/L Chloride (96-108) mmol/L Carbon Dioxide (22-29) mmol/L Anion Gap (12-20) BUN (9-16) mg/dL Creatinine (0.5-1.4) mg/dL Estim Creat Clear Calc Estimated GFR Random Glucose (60-115) mg/dL Calcium (8.4-10.2) mg/dL Magnesium (1.6-2.6) mg/dL Total Bilirubin (0.0-1.0) mg/dL Direct Bilirubin (0.0-0.5) mg/dL AST (5-31) U/L ALT (0-31) U/L Alkaline Phosphatase (39-117) U/L Troponin I High Sens (<3.5-17.0) ng/L Total Protein (6.5-8.0) g/dL Albumin (3.5-5.0) g/dL Urine Color YELLOW Urine Appearance CLEAR Urine pH 6.0 (5.0-8.0) Ur Specific [employer] 1.010 (1.005-1.025) Urine Protein NEG (NEG-TRACE) MG/DL Urine Glucose (UA) NEG (NEG) MG/DL Urine Ketones NEG (NEG) MG/DL Urine Blood NEG (NEG) Urine Nitrite NEG (NEG) Ur Leukocyte Esterase NEG (NEG) COVID-19 (DC) (Negative) COVID-19 Clin Com <Brittnee Velasco MD - Last Filed: 04/08/21 21:26> Lab Results 04/08/21 04/08/21 04/08/21 Range/Units 15:58 15:58 15:58 WBC 8.3 (4.8-10.8) X10*3/uL RBC 4.50 (4.20-5.50) X10*6/uL Hgb 14.9 (12.0-16.0) g/dl Hct 44.6 (37.0-47.0) % MCV 99.1 H (80.0-98.0) fL MCH 33.1 H (27.0-33.0) pg MCHC 33.4 (31.0-35.0) g/dl RDW 13.7 (11.0-16.0) % Plt Count 328 (160-400) X10*3/uL MPV 10.7 (9.4-12.3) fL Immature Gran % (Auto) 0.4 (0.0-0.4) % Neut % (Auto) 62.3 (45-73) % Lymph % (Auto) 23.2 (20-40) % Swisher % (Auto) 11.8 H (2-11) % Eos % (Auto) 1.8 (0-4) % Baso % (Auto) 0.5 (0-2) % Lymph # (Auto) 1.9 (1.2-4.9) X10*3/uL Swisher # (Auto) 1.0 (0.1-1.2) X10*3/uL Eos # (Auto) 0.2 (0.0-0.4) X10*3/uL Baso # (Auto) 0.0 (0.0-0.2) X10*3/uL Abs Immat Gran (auto) 0.03 (0.00-0.03) X10*3/uL Absolute Neuts (auto) 5.2 (2.0-8.3) x10*3/uL Absolute Nucleated RBC 0.000 (0.0-0.012) X10*3/uL Nucleated RBC % (auto) 0.0 (0.0-0.2) /100WBC PT 16.2 H (9.9-13.0) SEC INR 1.4 H (0.9-1.1) Sodium 139 (135-145) mmol/L Potassium 4.3 (3.3-5.1) mmol/L Chloride 101 (96-108) mmol/L Carbon Dioxide 29 (22-29) mmol/L Anion Gap 13 (12-20) BUN 17 H (9-16) mg/dL Creatinine 1.34 (0.5-1.4) mg/dL Estim Creat Clear Calc 31.3 Estimated GFR 38 Random Glucose 120 H (60-115) mg/dL Calcium 10.0 (8.4-10.2) mg/dL Magnesium 2.1 (1.6-2.6) mg/dL Total Bilirubin 0.8 (0.0-1.0) mg/dL Direct Bilirubin 0.3 (0.0-0.5) mg/dL AST 19 (5-31) U/L ALT 17 (0-31) U/L Alkaline Phosphatase 58 (39-117) U/L Troponin I High Sens (<3.5-17.0) ng/L Total Protein 6.3 L (6.5-8.0) g/dL Albumin 3.7 (3.5-5.0) g/dL Urine Color Urine Appearance Urine pH (5.0-8.0) Ur Specific [employer] (1.005-1.025) Urine Protein (NEG-TRACE) MG/DL Urine Glucose (UA) (NEG) MG/DL Urine Ketones (NEG) MG/DL Urine Blood (NEG) Urine Nitrite (NEG) Ur Leukocyte Esterase (NEG) COVID-19 (DC) (Negative) COVID-19 Clin Com 04/08/21 04/08/21 04/08/21 Range/Units 15:58 15:58 23:49 WBC (4.8-10.8) X10*3/uL RBC (4.20-5.50) X10*6/uL Hgb (12.0-16.0) g/dl Hct (37.0-47.0) % MCV (80.0-98.0) fL MCH (27.0-33.0) pg MCHC (31.0-35.0) g/dl RDW (11.0-16.0) % Plt Count (160-400) X10*3/uL MPV (9.4-12.3) fL Immature Gran % (Auto) (0.0-0.4) % Neut % (Auto) (45-73) % Lymph % (Auto) (20-40) % Swisher % (Auto) (2-11) % Eos % (Auto) (0-4) % Baso % (Auto) (0-2) % Lymph # (Auto) (1.2-4.9) X10*3/uL Swisher # (Auto) (0.1-1.2) X10*3/uL Eos # (Auto) (0.0-0.4) X10*3/uL Baso # (Auto) (0.0-0.2) X10*3/uL Abs Immat Gran (auto) (0.00-0.03) X10*3/uL Absolute Neuts (auto) (2.0-8.3) x10*3/uL Absolute Nucleated RBC (0.0-0.012) X10*3/uL Nucleated RBC % (auto) (0.0-0.2) /100WBC PT (9.9-13.0) SEC INR (0.9-1.1) Sodium (135-145) mmol/L Potassium (3.3-5.1) mmol/L Chloride (96-108) mmol/L Carbon Dioxide (22-29) mmol/L Anion Gap (12-20) BUN (9-16) mg/dL Creatinine (0.5-1.4) mg/dL Estim Creat Clear Calc Estimated GFR Random Glucose (60-115) mg/dL Calcium (8.4-10.2) mg/dL Magnesium (1.6-2.6) mg/dL Total Bilirubin (0.0-1.0) mg/dL Direct Bilirubin (0.0-0.5) mg/dL AST (5-31) U/L ALT (0-31) U/L Alkaline Phosphatase (39-117) U/L Troponin I High Sens 12.2 9.5 (<3.5-17.0) ng/L Total Protein (6.5-8.0) g/dL Albumin (3.5-5.0) g/dL Urine Color Urine Appearance Urine pH (5.0-8.0) Ur Specific [employer] (1.005-1.025) Urine Protein (NEG-TRACE) MG/DL Urine Glucose (UA) (NEG) MG/DL Urine Ketones (NEG) MG/DL Urine Blood (NEG) Urine Nitrite (NEG) Ur Leukocyte Esterase (NEG) COVID-19 (DC) Negative (Negative) COVID-19 Clin Com See Note 04/09/21 04/09/21 Range/Units 01:32 01:32 WBC 11.9 H (4.8-10.8) X10*3/uL RBC 4.33 (4.20-5.50) X10*6/uL Hgb 14.5 (12.0-16.0) g/dl Hct 43.0 (37.0-47.0) % MCV 99.3 H (80.0-98.0) fL MCH 33.5 H (27.0-33.0) pg MCHC 33.7 (31.0-35.0) g/dl RDW 13.5 (11.0-16.0) % Plt Count 337 (160-400) X10*3/uL MPV 11.0 (9.4-12.3) fL Immature Gran % (Auto) 0.6 H (0.0-0.4) % Neut % (Auto) 66.8 (45-73) % Lymph % (Auto) 21.3 (20-40) % Swisher % (Auto) 10.6 (2-11) % Eos % (Auto) 0.3 (0-4) % Baso % (Auto) 0.4 (0-2) % Lymph # (Auto) 2.5 (1.2-4.9) X10*3/uL Swisher # (Auto) 1.3 H (0.1-1.2) X10*3/uL Eos # (Auto) 0.0 (0.0-0.4) X10*3/uL Baso # (Auto) 0.1 (0.0-0.2) X10*3/uL Abs Immat Gran (auto) 0.07 H (0.00-0.03) X10*3/uL Absolute Neuts (auto) 8.0 (2.0-8.3) x10*3/uL Absolute Nucleated RBC 0.000 (0.0-0.012) X10*3/uL Nucleated RBC % (auto) 0.0 (0.0-0.2) /100WBC PT (9.9-13.0) SEC INR (0.9-1.1) Sodium (135-145) mmol/L Potassium (3.3-5.1) mmol/L Chloride (96-108) mmol/L Carbon Dioxide (22-29) mmol/L Anion Gap (12-20) BUN (9-16) mg/dL Creatinine (0.5-1.4) mg/dL Estim Creat Clear Calc Estimated GFR Random Glucose (60-115) mg/dL Calcium (8.4-10.2) mg/dL Magnesium (1.6-2.6) mg/dL Total Bilirubin (0.0-1.0) mg/dL Direct Bilirubin (0.0-0.5) mg/dL AST (5-31) U/L ALT (0-31) U/L Alkaline Phosphatase (39-117) U/L Troponin I High Sens (<3.5-17.0) ng/L Total Protein (6.5-8.0) g/dL Albumin (3.5-5.0) g/dL Urine Color YELLOW Urine Appearance CLEAR Urine pH 6.0 (5.0-8.0) Ur Specific [employer] 1.010 (1.005-1.025) Urine Protein NEG (NEG-TRACE) MG/DL Urine Glucose (UA) NEG (NEG) MG/DL Urine Ketones NEG (NEG) MG/DL Urine Blood NEG (NEG) Urine Nitrite NEG (NEG) Ur Leukocyte Esterase NEG (NEG) COVID-19 (DC) (Negative) COVID-19 Clin Com <Lora Walden MD - Last Filed: 04/09/21 00:33> Lab Results 04/08/21 04/08/21 04/08/21 Range/Units 15:58 15:58 15:58 WBC 8.3 (4.8-10.8) X10*3/uL RBC 4.50 (4.20-5.50) X10*6/uL Hgb 14.9 (12.0-16.0) g/dl Hct 44.6 (37.0-47.0) % MCV 99.1 H (80.0-98.0) fL MCH 33.1 H (27.0-33.0) pg MCHC 33.4 (31.0-35.0) g/dl RDW 13.7 (11.0-16.0) % Plt Count 328 (160-400) X10*3/uL MPV 10.7 (9.4-12.3) fL Immature Gran % (Auto) 0.4 (0.0-0.4) % Neut % (Auto) 62.3 (45-73) % Lymph % (Auto) 23.2 (20-40) % Swisher % (Auto) 11.8 H (2-11) % Eos % (Auto) 1.8 (0-4) % Baso % (Auto) 0.5 (0-2) % Lymph # (Auto) 1.9 (1.2-4.9) X10*3/uL Swisher # (Auto) 1.0 (0.1-1.2) X10*3/uL Eos # (Auto) 0.2 (0.0-0.4) X10*3/uL Baso # (Auto) 0.0 (0.0-0.2) X10*3/uL Abs Immat Gran (auto) 0.03 (0.00-0.03) X10*3/uL Absolute Neuts (auto) 5.2 (2.0-8.3) x10*3/uL Absolute Nucleated RBC 0.000 (0.0-0.012) X10*3/uL Nucleated RBC % (auto) 0.0 (0.0-0.2) /100WBC PT 16.2 H (9.9-13.0) SEC INR 1.4 H (0.9-1.1) Sodium 139 (135-145) mmol/L Potassium 4.3 (3.3-5.1) mmol/L Chloride 101 (96-108) mmol/L Carbon Dioxide 29 (22-29) mmol/L Anion Gap 13 (12-20) BUN 17 H (9-16) mg/dL Creatinine 1.34 (0.5-1.4) mg/dL Estim Creat Clear Calc 31.3 Estimated GFR 38 Random Glucose 120 H (60-115) mg/dL Calcium 10.0 (8.4-10.2) mg/dL Magnesium 2.1 (1.6-2.6) mg/dL Total Bilirubin 0.8 (0.0-1.0) mg/dL Direct Bilirubin 0.3 (0.0-0.5) mg/dL AST 19 (5-31) U/L ALT 17 (0-31) U/L Alkaline Phosphatase 58 (39-117) U/L Troponin I High Sens (<3.5-17.0) ng/L Total Protein 6.3 L (6.5-8.0) g/dL Albumin 3.7 (3.5-5.0) g/dL Urine Color Urine Appearance Urine pH (5.0-8.0) Ur Specific [employer] (1.005-1.025) Urine Protein (NEG-TRACE) MG/DL Urine Glucose (UA) (NEG) MG/DL Urine Ketones (NEG) MG/DL Urine Blood (NEG) Urine Nitrite (NEG) Ur Leukocyte Esterase (NEG) COVID-19 (DC) (Negative) COVID-19 Clin Com 04/08/21 04/08/21 04/08/21 Range/Units 15:58 15:58 23:49 WBC (4.8-10.8) X10*3/uL RBC (4.20-5.50) X10*6/uL Hgb (12.0-16.0) g/dl Hct (37.0-47.0) % MCV (80.0-98.0) fL MCH (27.0-33.0) pg MCHC (31.0-35.0) g/dl RDW (11.0-16.0) % Plt Count (160-400) X10*3/uL MPV (9.4-12.3) fL Immature Gran % (Auto) (0.0-0.4) % Neut % (Auto) (45-73) % Lymph % (Auto) (20-40) % Swisher % (Auto) (2-11) % Eos % (Auto) (0-4) % Baso % (Auto) (0-2) % Lymph # (Auto) (1.2-4.9) X10*3/uL Swisher # (Auto) (0.1-1.2) X10*3/uL Eos # (Auto) (0.0-0.4) X10*3/uL Baso # (Auto) (0.0-0.2) X10*3/uL Abs Immat Gran (auto) (0.00-0.03) X10*3/uL Absolute Neuts (auto) (2.0-8.3) x10*3/uL Absolute Nucleated RBC (0.0-0.012) X10*3/uL Nucleated RBC % (auto) (0.0-0.2) /100WBC PT (9.9-13.0) SEC INR (0.9-1.1) Sodium (135-145) mmol/L Potassium (3.3-5.1) mmol/L Chloride (96-108) mmol/L Carbon Dioxide (22-29) mmol/L Anion Gap (12-20) BUN (9-16) mg/dL Creatinine (0.5-1.4) mg/dL Estim Creat Clear Calc Estimated GFR Random Glucose (60-115) mg/dL Calcium (8.4-10.2) mg/dL Magnesium (1.6-2.6) mg/dL Total Bilirubin (0.0-1.0) mg/dL Direct Bilirubin (0.0-0.5) mg/dL AST (5-31) U/L ALT (0-31) U/L Alkaline Phosphatase (39-117) U/L Troponin I High Sens 12.2 9.5 (<3.5-17.0) ng/L Total Protein (6.5-8.0) g/dL Albumin (3.5-5.0) g/dL Urine Color Urine Appearance Urine pH (5.0-8.0) Ur Specific [employer] (1.005-1.025) Urine Protein (NEG-TRACE) MG/DL Urine Glucose (UA) (NEG) MG/DL Urine Ketones (NEG) MG/DL Urine Blood (NEG) Urine Nitrite (NEG) Ur Leukocyte Esterase (NEG) COVID-19 (DC) Negative (Negative) COVID-19 Clin Com See Note 04/09/21 04/09/21 Range/Units 01:32 01:32 WBC 11.9 H (4.8-10.8) X10*3/uL RBC 4.33 (4.20-5.50) X10*6/uL Hgb 14.5 (12.0-16.0) g/dl Hct 43.0 (37.0-47.0) % MCV 99.3 H (80.0-98.0) fL MCH 33.5 H (27.0-33.0) pg MCHC 33.7 (31.0-35.0) g/dl RDW 13.5 (11.0-16.0) % Plt Count 337 (160-400) X10*3/uL MPV 11.0 (9.4-12.3) fL Immature Gran % (Auto) 0.6 H (0.0-0.4) % Neut % (Auto) 66.8 (45-73) % Lymph % (Auto) 21.3 (20-40) % Swisher % (Auto) 10.6 (2-11) % Eos % (Auto) 0.3 (0-4) % Baso % (Auto) 0.4 (0-2) % Lymph # (Auto) 2.5 (1.2-4.9) X10*3/uL Swisher # (Auto) 1.3 H (0.1-1.2) X10*3/uL Eos # (Auto) 0.0 (0.0-0.4) X10*3/uL Baso # (Auto) 0.1 (0.0-0.2) X10*3/uL Abs Immat Gran (auto) 0.07 H (0.00-0.03) X10*3/uL Absolute Neuts (auto) 8.0 (2.0-8.3) x10*3/uL Absolute Nucleated RBC 0.000 (0.0-0.012) X10*3/uL Nucleated RBC % (auto) 0.0 (0.0-0.2) /100WBC PT (9.9-13.0) SEC INR (0.9-1.1) Sodium (135-145) mmol/L Potassium (3.3-5.1) mmol/L Chloride (96-108) mmol/L Carbon Dioxide (22-29) mmol/L Anion Gap (12-20) BUN (9-16) mg/dL Creatinine (0.5-1.4) mg/dL Estim Creat Clear Calc Estimated GFR Random Glucose (60-115) mg/dL Calcium (8.4-10.2) mg/dL Magnesium (1.6-2.6) mg/dL Total Bilirubin (0.0-1.0) mg/dL Direct Bilirubin (0.0-0.5) mg/dL AST (5-31) U/L ALT (0-31) U/L Alkaline Phosphatase (39-117) U/L Troponin I High Sens (<3.5-17.0) ng/L Total Protein (6.5-8.0) g/dL Albumin (3.5-5.0) g/dL Urine Color YELLOW Urine Appearance CLEAR Urine pH 6.0 (5.0-8.0) Ur Specific [employer] 1.010 (1.005-1.025) Urine Protein NEG (NEG-TRACE) MG/DL Urine Glucose (UA) NEG (NEG) MG/DL Urine Ketones NEG (NEG) MG/DL Urine Blood NEG (NEG) Urine Nitrite NEG (NEG) Ur Leukocyte Esterase NEG (NEG) COVID-19 (DC) (Negative) COVID-19 Clin Com <BECCA Menchaca - Last Filed: 04/09/21 02:31> Lab Results 04/08/21 04/08/21 04/08/21 Range/Units 15:58 15:58 15:58 WBC 8.3 (4.8-10.8) X10*3/uL RBC 4.50 (4.20-5.50) X10*6/uL Hgb 14.9 (12.0-16.0) g/dl Hct 44.6 (37.0-47.0) % MCV 99.1 H (80.0-98.0) fL MCH 33.1 H (27.0-33.0) pg MCHC 33.4 (31.0-35.0) g/dl RDW 13.7 (11.0-16.0) % Plt Count 328 (160-400) X10*3/uL MPV 10.7 (9.4-12.3) fL Immature Gran % (Auto) 0.4 (0.0-0.4) % Neut % (Auto) 62.3 (45-73) % Lymph % (Auto) 23.2 (20-40) % Swisher % (Auto) 11.8 H (2-11) % Eos % (Auto) 1.8 (0-4) % Baso % (Auto) 0.5 (0-2) % Lymph # (Auto) 1.9 (1.2-4.9) X10*3/uL Swisher # (Auto) 1.0 (0.1-1.2) X10*3/uL Eos # (Auto) 0.2 (0.0-0.4) X10*3/uL Baso # (Auto) 0.0 (0.0-0.2) X10*3/uL Abs Immat Gran (auto) 0.03 (0.00-0.03) X10*3/uL Absolute Neuts (auto) 5.2 (2.0-8.3) x10*3/uL Absolute Nucleated RBC 0.000 (0.0-0.012) X10*3/uL Nucleated RBC % (auto) 0.0 (0.0-0.2) /100WBC PT 16.2 H (9.9-13.0) SEC INR 1.4 H (0.9-1.1) Sodium 139 (135-145) mmol/L Potassium 4.3 (3.3-5.1) mmol/L Chloride 101 (96-108) mmol/L Carbon Dioxide 29 (22-29) mmol/L Anion Gap 13 (12-20) BUN 17 H (9-16) mg/dL Creatinine 1.34 (0.5-1.4) mg/dL Estim Creat Clear Calc 31.3 Estimated GFR 38 Random Glucose 120 H (60-115) mg/dL Calcium 10.0 (8.4-10.2) mg/dL Magnesium 2.1 (1.6-2.6) mg/dL Total Bilirubin 0.8 (0.0-1.0) mg/dL Direct Bilirubin 0.3 (0.0-0.5) mg/dL AST 19 (5-31) U/L ALT 17 (0-31) U/L Alkaline Phosphatase 58 (39-117) U/L Troponin I High Sens (<3.5-17.0) ng/L Total Protein 6.3 L (6.5-8.0) g/dL Albumin 3.7 (3.5-5.0) g/dL Urine Color Urine Appearance Urine pH (5.0-8.0) Ur Specific [employer] (1.005-1.025) Urine Protein (NEG-TRACE) MG/DL Urine Glucose (UA) (NEG) MG/DL Urine Ketones (NEG) MG/DL Urine Blood (NEG) Urine Nitrite (NEG) Ur Leukocyte Esterase (NEG) COVID-19 (DC) (Negative) COVID-19 Clin Com 04/08/21 04/08/21 04/08/21 Range/Units 15:58 15:58 23:49 WBC (4.8-10.8) X10*3/uL RBC (4.20-5.50) X10*6/uL Hgb (12.0-16.0) g/dl Hct (37.0-47.0) % MCV (80.0-98.0) fL MCH (27.0-33.0) pg MCHC (31.0-35.0) g/dl RDW (11.0-16.0) % Plt Count (160-400) X10*3/uL MPV (9.4-12.3) fL Immature Gran % (Auto) (0.0-0.4) % Neut % (Auto) (45-73) % Lymph % (Auto) (20-40) % Swisher % (Auto) (2-11) % Eos % (Auto) (0-4) % Baso % (Auto) (0-2) % Lymph # (Auto) (1.2-4.9) X10*3/uL Swisher # (Auto) (0.1-1.2) X10*3/uL Eos # (Auto) (0.0-0.4) X10*3/uL Baso # (Auto) (0.0-0.2) X10*3/uL Abs Immat Gran (auto) (0.00-0.03) X10*3/uL Absolute Neuts (auto) (2.0-8.3) x10*3/uL Absolute Nucleated RBC (0.0-0.012) X10*3/uL Nucleated RBC % (auto) (0.0-0.2) /100WBC PT (9.9-13.0) SEC INR (0.9-1.1) Sodium (135-145) mmol/L Potassium (3.3-5.1) mmol/L Chloride (96-108) mmol/L Carbon Dioxide (22-29) mmol/L Anion Gap (12-20) BUN (9-16) mg/dL Creatinine (0.5-1.4) mg/dL Estim Creat Clear Calc Estimated GFR Random Glucose (60-115) mg/dL Calcium (8.4-10.2) mg/dL Magnesium (1.6-2.6) mg/dL Total Bilirubin (0.0-1.0) mg/dL Direct Bilirubin (0.0-0.5) mg/dL AST (5-31) U/L ALT (0-31) U/L Alkaline Phosphatase (39-117) U/L Troponin I High Sens 12.2 9.5 (<3.5-17.0) ng/L Total Protein (6.5-8.0) g/dL Albumin (3.5-5.0) g/dL Urine Color Urine Appearance Urine pH (5.0-8.0) Ur Specific [employer] (1.005-1.025) Urine Protein (NEG-TRACE) MG/DL Urine Glucose (UA) (NEG) MG/DL Urine Ketones (NEG) MG/DL Urine Blood (NEG) Urine Nitrite (NEG) Ur Leukocyte Esterase (NEG) COVID-19 (DC) Negative (Negative) COVID-19 Clin Com See Note 04/09/21 04/09/21 Range/Units 01:32 01:32 WBC 11.9 H (4.8-10.8) X10*3/uL RBC 4.33 (4.20-5.50) X10*6/uL Hgb 14.5 (12.0-16.0) g/dl Hct 43.0 (37.0-47.0) % MCV 99.3 H (80.0-98.0) fL MCH 33.5 H (27.0-33.0) pg MCHC 33.7 (31.0-35.0) g/dl RDW 13.5 (11.0-16.0) % Plt Count 337 (160-400) X10*3/uL MPV 11.0 (9.4-12.3) fL Immature Gran % (Auto) 0.6 H (0.0-0.4) % Neut % (Auto) 66.8 (45-73) % Lymph % (Auto) 21.3 (20-40) % Swisher % (Auto) 10.6 (2-11) % Eos % (Auto) 0.3 (0-4) % Baso % (Auto) 0.4 (0-2) % Lymph # (Auto) 2.5 (1.2-4.9) X10*3/uL Swisher # (Auto) 1.3 H (0.1-1.2) X10*3/uL Eos # (Auto) 0.0 (0.0-0.4) X10*3/uL Baso # (Auto) 0.1 (0.0-0.2) X10*3/uL Abs Immat Gran (auto) 0.07 H (0.00-0.03) X10*3/uL Absolute Neuts (auto) 8.0 (2.0-8.3) x10*3/uL Absolute Nucleated RBC 0.000 (0.0-0.012) X10*3/uL Nucleated RBC % (auto) 0.0 (0.0-0.2) /100WBC PT (9.9-13.0) SEC INR (0.9-1.1) Sodium (135-145) mmol/L Potassium (3.3-5.1) mmol/L Chloride (96-108) mmol/L Carbon Dioxide (22-29) mmol/L Anion Gap (12-20) BUN (9-16) mg/dL Creatinine (0.5-1.4) mg/dL Estim Creat Clear Calc Estimated GFR Random Glucose (60-115) mg/dL Calcium (8.4-10.2) mg/dL Magnesium (1.6-2.6) mg/dL Total Bilirubin (0.0-1.0) mg/dL Direct Bilirubin (0.0-0.5) mg/dL AST (5-31) U/L ALT (0-31) U/L Alkaline Phosphatase (39-117) U/L Troponin I High Sens (<3.5-17.0) ng/L Total Protein (6.5-8.0) g/dL Albumin (3.5-5.0) g/dL Urine Color YELLOW Urine Appearance CLEAR Urine pH 6.0 (5.0-8.0) Ur Specific [employer] 1.010 (1.005-1.025) Urine Protein NEG (NEG-TRACE) MG/DL Urine Glucose (UA) NEG (NEG) MG/DL Urine Ketones NEG (NEG) MG/DL Urine Blood NEG (NEG) Urine Nitrite NEG (NEG) Ur Leukocyte Esterase NEG (NEG) COVID-19 (DC) (Negative) COVID-19 Clin Com <BECCA Lemon - Last Filed: 04/09/21 09:03> Imaging Data Chest x-ray: Attestation: I personally reviewed and interpreted this imaging study as follows: <China Stallworth NP - Last Filed: 04/08/21 18:01> Radiologist's impression: [place] [address] XRay Report Signed Patient: Debbie Paul MR#: [id number] : 1935 Acct:[id number] Age/Sex: 85 / F ADM Date: 04/08/21 Loc: HO.ED Attending Dr: Ordering Physician: China Stallworth NP Date of Service: 04/08/21 Procedure(s): XR chest 2V Accession Number(s): [id number] cc: China Stallworth NP~ EXAMINATION: CHEST 2 VIEWS. LEFT HIP AND PELVIS. CLINICAL INFORMATION: Difficulty breathing. Left-sided pain? COMPARISON: None? TECHNIQUE: 2 views of the chest. 3 views of the left hip.? FINDINGS: Chest: Lungs are clear. No acute consolidations or pleural effusions. There is advanced degenerative change in the shoulder joints. Heart size borderline with normal caliber pulmonary vessels. Left hip: There is degenerative change noted but no fracture, dislocation or destructive lesion. Pelvis and right hip intact. There is advanced degenerative change in the lower lumbar spine.? XR/XR chest 2V IMPRESSION: Chronic degenerative noted. No acute findings.? <China Stallworth NP - Last Filed: 04/08/21 18:01> hip/pelvis x-ray: Attestation: I personally reviewed and interpreted this imaging study as follows: <China Stallworth NP - Last Filed: 04/08/21 18:01> Radiologist's impression: [address] [address] XRay Report Signed Patient: Debbie Paul MR#: [id number] : 1935 Acct:[id number] Age/Sex: 85 / F ADM Date: 04/08/21 Loc: HO.ED Attending Dr: Ordering Physician: China Stallworth NP Date of Service: 04/08/21 Procedure(s): XR hip LT w PEL1V Accession Number(s): [id number] cc: China Stallworth NP~ EXAMINATION: CHEST 2 VIEWS. LEFT HIP AND PELVIS. CLINICAL INFORMATION: Difficulty breathing. Left-sided pain? COMPARISON: None? TECHNIQUE: 2 views of the chest. 3 views of the left hip.? FINDINGS: Chest: Lungs are clear. No acute consolidations or pleural effusions. There is advanced degenerative change in the shoulder joints. Heart size borderline with normal caliber pulmonary vessels. Left hip: There is degenerative change noted but no fracture, dislocation or destructive lesion. Pelvis and right hip intact. There is advanced degenerative change in the lower lumbar spine.? XR/XR hip LT w PEL1V IMPRESSION: Chronic degenerative noted. No acute findings.? <China Stallworth NP - Last Filed: 04/08/21 18:01> CT scan - head: Attestation: I personally reviewed and interpreted this imaging study as follows: <China Stallworth NP - Last Filed: 04/08/21 18:01> Radiologist's impression: FINDINGS: There is no intracranial hemorrhage, hematoma, or extra-axial fluid collection.? There are generalized atrophic changes with prominence of the cortical sulci and fissures and cisterns and mild ventricular prominence. No hydrocephalus. There is interval moderate to prominent bilateral periventricular white matter gliosis since prior imaging 2010. No mass effect or edema. Findings are likely related to chronic small vessel ischemic changes.. There are some benign bulky falx calcifications again seen anteriorly. There is no visible acute territorial infarct or mass lesion. The calvarium appears intact. There is no pneumocephalus or orbital emphysema.? The visualized sinuses and middle ears and mastoid air cells show no significant mucosal thickening. There are no air-fluid levels. CT/CT head/brain wo con IMPRESSION: ? 1. No acute intracranial hemorrhage, hematoma, or extra-axial fluid collection. 2. Generalized atrophic changes with moderate to prominent bilateral periventricular white matter gliosis likely related to chronic small vessel ischemic changes. No mass effect or edema. <China Stallworth NP - Last Filed: 04/08/21 18:01> cervical spine ct: Attestation: I personally reviewed and interpreted this imaging study as follows: <China Stallworth NP - Last Filed: 04/08/21 18:01> Radiologist's impression: IMPRESSION: 1.? No acute bony abnormality or prevertebral soft tissue swelling. 2. Multilevel degenerative disc and degenerative facet changes. 3. Reversal cervical lordosis with dextrocurvature. Mild grade 0-1 spondylolisthesis at both C3-C4 and C4-C5 likely secondary to the degenerative changes. ? <China Stallworth NP - Last Filed: 04/08/21 18:01> ECG Data Attestation: I personally reviewed and interpreted this ECG as follows: <China Stallworth NP - Last Filed: 04/08/21 18:01> ECG interpretation date: 04/08/21 <China Stallworth NP - Last Filed: 04/08/21 18:01> ECG interpretation time: 15:40 <China Stallworth NP - Last Filed: 04/08/21 18:01> Interpretation: AFib with RVR with rate of 110, normal QRS, normal QT <China Stallworth NP - Last Filed: 04/08/21 18:01> Discharge Plan Discharge Clinical Impression: Fall, Weakness <China Stallworth NP - Last Filed: 04/08/21 18:01> Prescriptions: No Action furosemide 40 mg tablet 1 tab PO DAILY RF: 0 metoprolol succinate 50 mg tablet extended release 24 hr 1 tab PO DAILY RF: 0 clopidogrel 75 mg tablet 1 tab PO DAILY RF: 0 levothyroxine 50 mcg tablet 1 tab PO DAILY RF: 0 ezetimibe 10 mg tablet 1 tab PO DAILY RF: 0 potassium chloride [Klor-Con M10] 10 mEq tablet,ER particles/crystals 40 meq PO DAILY RF: 0 duloxetine 30 mg capsule,delayed release(DR/EC) 1 cap PO BID RF: 0 calcium citrate-vitamin D3 200 mg-6.25 mcg (250 unit) tablet 2 tab PO BEDTIME RF: 0 icosapent ethyl [Vascepa] 1 gram capsule 2 cap PO BID RF: 0 Eliquis 5 mg Tablet 5 mg PO BID RF: 0 Trelegy Ellipta 100-62.5-25 mcg blister with device 1 puff inhalation DAILY RF: 0 <China Stallworth NP - Last Filed: 04/08/21 18:01>
[2021-04-08 16:02] VITALS: BP 120/81; PULSE 105; RESP 18; O2SAT 98
[2021-04-08 16:03] LABS: MANUAL DIFF FLAG NO
--- NOTE | 2021-04-08 16:04 | PC.NURSE ---
Pt confused, baseline per (China HUDSON called), unk details of fall however pt reports left sided leg, hip and arm pain. Unk dizzy prior to fall. A fib on tele rate 90-110. Neuros are intact, speech is clear. Off unit to CT scan at this time
[2021-04-08 16:05] LABS: Basophils Percent Auto 0.5 % (0-2); Eosinophils Absolute Auto 0.2 X10*3/uL (0.0-0.4); Eosinophils Percent Auto 1.8 % (0-4); Hematocrit 44.6 % (37.0-47.0); Hemoglobin 14.9 g/dl (12.0-16.0); Imm Gran Abs Auto 0.03 X10*3/uL (0.00-0.03); Imm Gran Pct Auto 0.4 % (0.0-0.4); Lymphocytes Absolute Auto 1.9 X10*3/uL (1.2-4.9); Lymphocytes Percent Auto 23.2 % (20-40); Mean Corpuscular HGB Conc 33.4 g/dl (31.0-35.0); Mean Corpuscular Hemoglobin 33.1 pg (27.0-33.0); Mean Corpuscular Volume 99.1 fL (80.0-98.0); Mean Platelet Volume 10.7 fL (9.4-12.3); Monocytes Percent Auto 11.8 % (2-11); Neutrophils Absolute Auto 5.2 x10*3/uL (2.0-8.3); Neutrophils Percent Auto 62.3 % (45-73); Platelet Count 328 X10*3/uL (160-400); Red Cell Distribution Width 13.7 % (11.0-16.0); White Blood Count 8.3 X10*3/uL (4.8-10.8)
[2021-04-08 16:12] LABS: INTERNATIONAL NORM RATIO 1.4 (0.9-1.1); Prothrombin Time 16.2 SEC (9.9-13.0)
[2021-04-08 16:21] LABS: COVID-19 Test Negative (Negative)
[2021-04-08 16:24] LABS: Alanine Aminotransferase 17 U/L (0-31); Albumin Level 3.7 g/dL (3.5-5.0); Alkaline Phosphatase 58 U/L (39-117); Anion Gap 13 (12-20); Aspartate Amino Transferase 19 U/L (5-31); Bilirubin Direct 0.3 mg/dL (0.0-0.5); Bilirubin Total 0.8 mg/dL (0.0-1.0); Blood Urea Nitrogen 17 mg/dL (9-16); Carbon Dioxide 29 mmol/L (22-29); Chloride 101 mmol/L (96-108); Creatinine Clr Calc Pharmacy 31.3; Estimated Glomerular Filt Rate 38; Glucose Random 120 mg/dL (60-115); Magnesium 2.1 mg/dL (1.6-2.6); Potassium 4.3 mmol/L (3.3-5.1); Sodium 139 mmol/L (135-145); Total Protein 6.3 g/dL (6.5-8.0)
[2021-04-08 16:27] LABS: Troponin-I High Sensitivity 12.2 ng/L (<3.5-17.0)
--- NOTE | 2021-04-08 20:01 | PC.NURSE ---
spoke with pt's with update, and pt he will call again to find out more info regarding pt's condition. pt resting in stretcher in nad.
--- NOTE | 2021-04-08 21:02 | MHC.CM.ED ---
CM attempted to meet with patient. Pt is confused. Occasionally yells out. Does not know why she is here or how she got here. Will need to speak with . CM called and spoke with Zak Paul, pt . He tells CM that his did not sleep at all last night. He admits to her being confused, but states he loves her and will care for her. He tells CM that he has private pay help through [facility]- ADMISSION NURSE Thursday - Thursday 11am - 2:45 pm and then 6p-8pm. Pt also has home PT for past 2 weeks, but he cannot remember agency. Requests CM speak with his daughter, Stormy Hector. Pt has a wheelchair, walker, commode, and a stair lift at home. Pt has handicapped accessible BR. PCP is Dr. Nick Wilson. HCP/daughter Stormy Hector ([phone]). Copy on chart. Pt is fully vaccinated and boosted with Pfizer. would like his to come home in the morning with continuation of existing services. CM called and spoke with Stormy, HCP/daughter. Stormy is concerned that her mother's dementia has progressed over the past year, although she has not been formally diagnosed and her father has been very reluctant to have her diagnoses. Stormy is concerned that caring for her mother may be too much for her father. States she has been falling, even with help at home. Stormy wants to wait for the PT recommendation in the am. Pt is receiving services through [facility] for PT and has [facility] for ADMISSION NURSE help. Stormy wants to speak with her siblings in the morning after the PT evaluation to develop a plan of care, but thinks they will probably have her mother go home. They pay for [facility] services now. Discussed options for increased home care or 24/7 care if they can afford it. Then there is STR if recommended. Plan is to have the PT evaluation in the am and contact Stormy first with the recommendations. She will speak with her family and her father. No referrals placed at this time. CM to follow for d/c needs.
[2021-04-08] MEDS: Apixaban 5 MG TABLET PO (21:17)
[2021-04-08] MEDS: Calcium + Vitamin D 250 MG TABLET PO (21:17)
[2021-04-08] MEDS: DULoxetine HCl 30 MG CAPSULE.DR PO (21:17)
--- NOTE | 2021-04-08 22:43 | PC.NURSE ---
pt is told several times to not get up. Pt got to end of bed and tried to stand up and fell on her buttock. md at bedside. pt up to stretcher. no bruising of deformity noted to area. pt to x-ray.
--- NOTE | 2021-04-08 23:30 | PC.NURSE ---
pt has a large hematoma to left hip area. IV placed and pt to x-ray in stretcher.
[2021-04-08 23:57] VITALS: BP 132/74; PULSE 63; RESP 14; O2SAT 96
[2021-04-09] VITALS (18 sets, daily range): BP systolic 71–146; BP diastolic 40–105; PULSE 63–152; RESP 12–23; TEMP 36.1–37; O2SAT 91–100
[2021-04-09 00:19] LABS: Troponin-I High Sensitivity 9.5 ng/L (<3.5-17.0)
--- NOTE | 2021-04-09 01:30 | PC.NURSE ---
PT RESTING IN HOSPITAL BED, PT WAKES TO VOICE, RESPIRATIONS EASY, N/L. SKIN W/D. PT CLEANED UP AT THIS TIME AND PT FALLS BACK TO SLEEP. WILL CONTINUE TO MONITOR PT.
[2021-04-09 01:40] LABS: Basophils Absolute Auto 0.1 X10*3/uL (0.0-0.2); Basophils Percent Auto 0.4 % (0-2); Eosinophils Percent Auto 0.3 % (0-4); Hemoglobin 14.5 g/dl (12.0-16.0); Imm Gran Abs Auto 0.07 X10*3/uL (0.00-0.03); Imm Gran Pct Auto 0.6 % (0.0-0.4); Lymphocytes Absolute Auto 2.5 X10*3/uL (1.2-4.9); Lymphocytes Percent Auto 21.3 % (20-40); MANUAL DIFF FLAG NO; Mean Corpuscular HGB Conc 33.7 g/dl (31.0-35.0); Mean Corpuscular Hemoglobin 33.5 pg (27.0-33.0); Mean Corpuscular Volume 99.3 fL (80.0-98.0); Monocytes Absolute Auto 1.3 X10*3/uL (0.1-1.2); Monocytes Percent Auto 10.6 % (2-11); Neutrophils Percent Auto 66.8 % (45-73); Platelet Count 337 X10*3/uL (160-400); Red Blood Count 4.33 X10*6/uL (4.20-5.50); Red Cell Distribution Width 13.5 % (11.0-16.0); White Blood Count 11.9 X10*3/uL (4.8-10.8)
[2021-04-09 01:42] LABS: Appearance Urine CLEAR; Color Urine YELLOW; Glucose Urine UA NEG (NEG); Leukocyte Esterase Urine NEG (NEG); Nitrite Urine NEG (NEG); Urine Blood NEG (NEG); Urine Ketones NEG (NEG); Urine Protein NEG (NEG-TRACE)
[2021-04-09] MEDS: ondansetron HCL 4 MG/2 ML VIAL IVPUSH (02:16)
[2021-04-09] MEDS: Morphine Sulfate 4 MG/ML CARTRIDGE IVPUSH (02:18)
[2021-04-09] MEDS: iohexoL 350 MG/ML 100 ML INFUS..BTL 65 ML IV (02:50)
--- NOTE | 2021-04-09 03:38 | PC.NURSE ---
PT AWAITING FOR FURTHER ORDERS. PT IN NAD AND AWAITING FOR PT EVAL.
--- NOTE | 2021-04-09 09:05 | MHC.CM.ED ---
Patient remains in ER. Physical therapy attempted to evaluate patient. Patient was too somnolent. Nam PARKS aware and will notify T/W when patient wakes up. Spoke with Stormy to provide the above information. Stormy verbalized understanding. Continue to monitor for d/c needs.
--- NOTE | 2021-04-09 11:15 | MHC.CM.ED ---
Physical therapy eval completed. 03/11 or chemical process analyst care is being recommended. Spoke with Stormy via telephone at [phone]. Stormy is agreeable to patient returning home with resumption of services. Patient's and Stormy's sister will come to ER to transport. Continue to monitor for d/c needs.
--- NOTE | 2021-04-09 12:29 | MHC.CM.ED ---
Addendum entered by Janette Selby 04/09/21 14:22: RN attempting to ready pt for d/c to home - pt sluggish - VS obtained and found to be very abnormal. Pt to have stat labs and imaging obtained. Of note, family stated to RN and MD that pt was a DNR/DNI. CM to follow for finalization of d/c plans. Original Note: Spoke with pt's dtr Stormy about pt's return to home with Riya CELESTIN private pay, family support and nilo BUCKNER referral for skilled RN visits. Dtr in agreement with plan and states her father and sister [place] [facility] [place]. F2F uploaded to [facility]: D/C Summary not yet available
--- NOTE | 2021-04-09 13:06 | ECG_ITS ---
Test Reason : TACHYCARDIA Blood Pressure : / mmHG Vent. Rate : 151 BPM Atrial Rate : 000 BPM P-R Int : 000 ms QRS Dur : 072 ms QT Int : 286 ms P-R-T Axes : 000 -16 135 degrees QTc Int : 453 ms Atrial fibrillation with rapid ventricular response Septal infarct , age undetermined ST changes consider lateral ischemia Abnormal ECG When compared with ECG of 08-APR-2021 15:40, Septal infarct is now Present Nonspecific T wave abnormality no longer evident in Inferior leads ST-T changes in Lateral leads Referred By: Sussy Olsen Electronically Signed By:Ankit Batres
[2021-04-09] MEDS: Digoxin 0.5 MG/2 ML AMPUL 0.25 MG IVPUSH (13:30)
[2021-04-09] MEDS: 0.9 % Sodium Chloride 1,000 ML 999 ML IVCONT (13:30)
[2021-04-09 13:38] LABS: MANUAL DIFF FLAG NO
[2021-04-09 13:39] LABS: Basophils Percent Auto 0.3 % (0-2); Hematocrit 39.1 % (37.0-47.0); Hemoglobin 12.9 g/dl (12.0-16.0); Imm Gran Abs Auto 0.08 X10*3/uL (0.00-0.03); Imm Gran Pct Auto 0.7 % (0.0-0.4); Lymphocytes Absolute Auto 1.6 X10*3/uL (1.2-4.9); Lymphocytes Percent Auto 13.4 % (20-40); Mean Corpuscular Hemoglobin 32.9 pg (27.0-33.0); Mean Corpuscular Volume 99.7 fL (80.0-98.0); Mean Platelet Volume 11.1 fL (9.4-12.3); Monocytes Absolute Auto 1.1 X10*3/uL (0.1-1.2); Monocytes Percent Auto 9.3 % (2-11); Neutrophils Absolute Auto 9.3 x10*3/uL (2.0-8.3); Neutrophils Percent Auto 76.3 % (45-73); Platelet Count 359 X10*3/uL (160-400); Red Blood Count 3.92 X10*6/uL (4.20-5.50); Red Cell Distribution Width 13.9 % (11.0-16.0); White Blood Count 12.1 X10*3/uL (4.8-10.8)
[2021-04-09 13:44] LABS: INTERNATIONAL NORM RATIO 1.6 (0.9-1.1); Prothrombin Time 18.5 SEC (9.9-13.0)
[2021-04-09 13:52] LABS: Glucose, Whole Blood 143 mg/dL (60-115)
[2021-04-09 13:54] LABS: Lactic Acid 2.7 mmol/L (0.5-2.0)
[2021-04-09 14:05] LABS: B Type Natriuretic Peptide 490 pg/mL (<100); Troponin-I High Sensitivity 16.9 ng/L (<3.5-17.0)
[2021-04-09 14:16] LABS: Venous Blood Gas Refer to POC result
[2021-04-09 14:17] LABS: VBG Base Excess -1.9 mmol/L; VBG HCO3 25 mmol/L (22-26); VBG pCO2 52 mmHg; VBG pH 7.28 (7.32-7.43); VBG pO2 36 mmHg
--- NOTE | 2021-04-09 14:39 | CA_ITS ---
Transthoracic Echocardiogram Patient (Last, First, Middle): Debbie Paul A Gender: Female Date of : 1935 Age: 85 Procedure Date: 04/09/2021 Procedure Type: Transthoracic Echocardiogram Location: ER Height: 157.48 cm Weight: 80.74 kg BSA: 1.82 m2 Heart Rate: 135 bpm BP: 154 / 92 mmHg Machine Featheredger And Reducer: Referring MD: Brittnee Velasco MD [address] Team Member: Ankit Batres MD Symptoms: Hypotension Study Quality: Good ECG Rhythm: Atrial Fibrillation Conclusions: - Normal left ventricular size and systolic function. - Normal right ventricular cavity size and systolic function. - There is trace mitral valve regurgitation. - There is no evidence of pericardial effusion. Findings Left Ventricle Normal left ventricular size and systolic function. There is mildly increased left ventricular wall thickness. The visually estimated ejection fraction is between 60-65%. There is no evidence of regional wall motion abnormalities. Diastolic function is indeterminate on the basis of available data. Right Ventricle Normal right ventricular cavity size and systolic function. Mitral Valve There is mild mitral annular calcification. There is trace mitral valve regurgitation. Venous The inferior vena cava is normal in size and collapses greater than 50% with inspiration. Pericardium/Pleural There is no evidence of pericardial effusion. Prior Study Comparison No significant change compared to prior study. Measurements 2D Linear Measurements IVSd: 1.04 0.6-0.9/0.6-1.0 cm LVIDd: 3.62 3.9-5.3/4.2-5.9 cm LVIDd Index: 1.99 2.4-3.2/2.2-3.1 cm/m2 LVIDs: 3.19 2.0-3.6 cm LVPWd: 1.01 0.7-1.1 cm LV Mass: 140.24 67-162/88-224 g LV Mass Index: 77.06 43-95/49-115 g/m2 Tricuspid Valve TR Pk Nikko: 2.77 TR Pk Grad: 31.00 Updated in Other Vendor System with Status of Final Ankit Batres MD electronically signed on 04/09/2021 4:34:47 PM with status of Final
--- NOTE | 2021-04-09 14:44 | PM.CNCAR ---
History of Present Illness History of Present Illness Date of Service: 04/09/21 Requesting physician: Brittnee Velasco Chief complaint: Afib with RVR Narrative: 85-year-old female who is a patient of Dr Marilin Luu at [facility]. She has history of frequent falls in the past. She has known history of atrial fibrillation and has been on Eliquis. She is also on Plavix. Previous echocardiography earlier this year at [facility] has shown ejection fraction the normal range. No significant valvular pathology was noted. It appears she presented with the fall and weakness. She was waiting to be placed to a rehab facility. ER physician noted her to be more confused and telemetry showed AFib with RVR. Difficult to know whether she had AFib before or not. It appears she was confused when she came in and there or some memory issues and dementia and background. Patient was arousable and was following commands but blood pressure was undetectable and she was in AFib with RVR. She had fall and left femur area hematoma with bruising. Hemoglobins drop approximately 2 g compared to her admission hemoglobin. No meaningful history is possible from the patient. Doppler blood pressure was approximately 80 mm Hg systolic. [facility] Past Medical History Medical History Atrial fibrillation CHF (congestive heart failure) COPD (chronic obstructive pulmonary disease) High cholesterol HTN (hypertension) Hypothyroid Osteoporosis Social History Social History Patient Tobacco Use Status: Former Tobacco user Use of substances other than those prescribed or required for medical reasons: No Advance Directives: No Advance Directives Information Provided: Yes Meds Allergies Allergy/AdvReac Type Severity Reaction Status Date / Time Penicillins Allergy Mild RASH Verified 04/08/21 15:30 [id number]-FuG Reductase Allergy Unknown MUSCLE Verified 04/08/21 15:30 Inhibitor ACHES AND [Fdbwtwp-Kyc-Pcu Reductase STIFFNESS Inhibitor] Sulfa (Sulfonamide Allergy Unknown RASH Verified 04/08/21 15:30 Antibiotics) Active Medications: Current Medications Apixaban (Apixaban 5 Mg Tablet) 5 mg PO BID [facility] Last Admin: 04/08/21 21:17 Dose: 5 mg Documented by: Calcium Carbonate/Cholecalciferol (Calcium + Vitamin D 250 Mg Tablet) 250 mg PO BEDTIME [facility] Last Admin: 04/08/21 21:17 Dose: 250 mg Documented by: Duloxetine HCl (Duloxetine Hcl 30 Mg Capsule.Dr) 30 mg PO BID [facility] Last Admin: 04/08/21 21:17 Dose: 30 mg Documented by: Ezetimibe (Ezetimibe 10 Mg Tablet) 10 mg PO DAILY [facility] Furosemide (Furosemide 40 Mg Tablet) 40 mg PO DAILY LANIE; Protocol Sodium Chloride (Ns) 1,000 mls @ 999 mls/hr IVCONT .Q1H1M ONE Stop: 04/09/21 15:07 Levothyroxine Sodium (Levothyroxine Sodium 50 Mcg Tablet) 50 mcg PO DAILY@0600 [facility] Metoprolol Succinate (Metoprolol Succinate Er 50 Mg Tab.Er.24h) 50 mg PO DAILY LANIE; Protocol Non-Formulary Medication (Yhlwmyjmeyk-Qsmqadmkv-Jikhygww [Trelegy Ellipta]) 1 puff INHALE DAILY [facility] Non-Formulary Medication (Icosapent Ethyl [Vascepa]) 2 cap PO BID [facility] Pharmacy Consult (Consult Rx Perform Med Rec) 1 each MISCELLANE ONCE PRN PRN Reason: Consult order Potassium Chloride (Potassium Chloride Er 20 Meq Tab.Er.Prt) 40 meq PO DAILY [facility] Home Medications Medication Instructions Recorded Confirmed Last Taken Type apixaban 5 mg tablet (Eliquis) 5 mg PO BID 04/08/21 04/08/21 04/08/21 History calcium citrate 200 mg 2 tab PO BEDTIME 04/08/21 04/08/21 04/07/21 History calcium-vitamin D3 6.25 mcg (250 unit) tablet clopidogrel 75 mg tablet 1 tab PO DAILY 04/08/21 04/08/21 04/08/21 History duloxetine 30 mg capsule,delayed 1 cap PO BID 04/08/21 04/08/21 04/08/21 History release ezetimibe 10 mg tablet 1 tab PO DAILY 04/08/21 04/08/21 04/08/21 History fluticasone fur. 100 mcg-umeclid 1 puff INHALATION DAILY 04/08/21 04/08/21 04/08/21 History 62.5 mcg-vilant 25 mcg inhalat.powder (Trelegy Ellipta) furosemide 40 mg tablet 1 tab PO DAILY 04/08/21 04/08/21 04/08/21 History icosapent ethyl 1 gram capsule 2 cap PO BID 04/08/21 04/08/21 04/08/21 History (Vascepa) levothyroxine 50 mcg tablet 1 tab PO DAILY 04/08/21 04/08/21 04/08/21 History metoprolol succinate 50 mg 1 tab PO DAILY 04/08/21 04/08/21 04/08/21 History tablet,extended release 24 hr potassium chloride 10 mEq 40 meq PO DAILY 04/08/21 04/08/21 04/08/21 History tablet,extended release(part/cryst) (Klor-Con M) Physical Exam Vital Signs: Vital Signs: Last Vital Signs Temp 97.8 F 04/08/21 15:22 Pulse 82 04/09/21 10:36 Resp 18 04/09/21 06:23 BP 134/105 H 04/09/21 06:23 Pulse Ox 98 04/09/21 10:36 BMI result Body Mass Index 32.5 GENERAL APPEARANCE: On non-rebreather, confused but arousable HEART: no murmurs, irregular rate and rhythm. Tachycardia. LUNGS: clear to auscultation anteriorly. ABDOMEN: soft, nontender. EXTREMITIES: no edema. Left buttock area there is a hematoma with bruising. PERIPHERAL PULSES: Difficult to palpate. NEUROLOGIC: Confused but arousable. In pain due to left hip injury. Objective Labs and Meds Result diagrams: 04/09/21 13:31 04/08/21 15:58 Lab results: Laboratory Results - last 24 hr 04/08/21 04/08/21 04/08/21 15:58 15:58 15:58 WBC 8.3 RBC 4.50 Hgb 14.9 Hct 44.6 MCV 99.1 H MCH 33.1 H MCHC 33.4 RDW 13.7 Plt Count 328 MPV 10.7 Immature Gran % (Auto) 0.4 Neut % (Auto) 62.3 Lymph % (Auto) 23.2 [place] % (Auto) 11.8 H Eos % (Auto) 1.8 Baso % (Auto) 0.5 Lymph # (Auto) 1.9 [place] # (Auto) 1.0 Eos # (Auto) 0.2 Baso # (Auto) 0.0 Abs Immat Gran (auto) 0.03 Absolute Neuts (auto) 5.2 Absolute Nucleated RBC 0.000 Nucleated RBC % (auto) 0.0 PT 16.2 H INR 1.4 H VBG pH VBG pCO2 VBG pO2 VBG HCO3 VBG O2 Saturation VBG Base Excess Sodium 139 Potassium 4.3 Chloride 101 Carbon Dioxide 29 Anion Gap 13 BUN 17 H Creatinine 1.34 Estim Creat Clear Calc 31.3 Estimated GFR 38 POC Glucose Random Glucose 120 H Lactic Acid Calcium 10.0 Magnesium 2.1 Total Bilirubin 0.8 Direct Bilirubin 0.3 AST 19 ALT 17 Alkaline Phosphatase 58 Troponin I High Sens B-Natriuretic Peptide Total Protein 6.3 L Albumin 3.7 Urine Color Urine Appearance Urine pH Ur Specific [place] Urine Protein Urine Glucose (UA) Urine Ketones Urine Blood Urine Nitrite Ur Leukocyte Esterase COVID-19 (DC) COVIDLalina 04/08/21 04/08/21 04/08/21 15:58 15:58 23:49 WBC RBC Hgb Hct MCV MCH MCHC RDW Plt Count MPV Immature Gran % (Auto) Neut % (Auto) Lymph % (Auto) [place] % (Auto) Eos % (Auto) Baso % (Auto) Lymph # (Auto) [place] # (Auto) Eos # (Auto) Baso # (Auto) Abs Immat Gran (auto) Absolute Neuts (auto) Absolute Nucleated RBC Nucleated RBC % (auto) PT INR VBG pH VBG pCO2 VBG pO2 VBG HCO3 VBG O2 Saturation VBG Base Excess Sodium Potassium Chloride Carbon Dioxide Anion Gap BUN Creatinine Estim Creat Clear Calc Estimated GFR POC Glucose Random Glucose Lactic Acid Calcium Magnesium Total Bilirubin Direct Bilirubin AST ALT Alkaline Phosphatase Troponin I High Sens 12.2 9.5 B-Natriuretic Peptide Total Protein Albumin Urine Color Urine Appearance Urine pH Ur Specific [place] Urine Protein Urine Glucose (UA) Urine Ketones Urine Blood Urine Nitrite Ur Leukocyte Esterase COVID-19 (DC) Negative COVIDLalina See Note 04/09/21 04/09/21 04/09/21 01:32 01:32 13:31 WBC 11.9 H 12.1 H RBC 4.33 3.92 L Hgb 14.5 12.9 Hct 43.0 39.1 MCV 99.3 H 99.7 H MCH 33.5 H 32.9 MCHC 33.7 33.0 RDW 13.5 13.9 Plt Count 337 359 MPV 11.0 11.1 Immature Gran % (Auto) 0.6 H 0.7 H Neut % (Auto) 66.8 76.3 H Lymph % (Auto) 21.3 13.4 L [place] % (Auto) 10.6 9.3 Eos % (Auto) 0.3 0.0 Baso % (Auto) 0.4 0.3 Lymph # (Auto) 2.5 1.6 [place] # (Auto) 1.3 H 1.1 Eos # (Auto) 0.0 0.0 Baso # (Auto) 0.1 0.0 Abs Immat Gran (auto) 0.07 H 0.08 H Absolute Neuts (auto) 8.0 9.3 H Absolute Nucleated RBC 0.000 0.000 Nucleated RBC % (auto) 0.0 0.0 PT INR VBG pH VBG pCO2 VBG pO2 VBG HCO3 VBG O2 Saturation VBG Base Excess Sodium Potassium Chloride Carbon Dioxide Anion Gap BUN Creatinine Estim Creat Clear Calc Estimated GFR POC Glucose Random Glucose Lactic Acid Calcium Magnesium Total Bilirubin Direct Bilirubin AST ALT Alkaline Phosphatase Troponin I High Sens B-Natriuretic Peptide Total Protein Albumin Urine Color YELLOW Urine Appearance CLEAR Urine pH 6.0 Ur Specific [place] 1.010 Urine Protein NEG Urine Glucose (UA) NEG Urine Ketones NEG Urine Blood NEG Urine Nitrite NEG Ur Leukocyte Esterase NEG COVID-19 (DC) COVID-19 Clin Com 04/09/21 04/09/21 04/09/21 13:31 13:31 13:31 WBC RBC Hgb Hct MCV MCH MCHC RDW Plt Count MPV Immature Gran % (Auto) Neut % (Auto) Lymph % (Auto) [place] % (Auto) Eos % (Auto) Baso % (Auto) Lymph # (Auto) [place] # (Auto) Eos # (Auto) Baso # (Auto) Abs Immat Gran (auto) Absolute Neuts (auto) Absolute Nucleated RBC Nucleated RBC % (auto) PT 18.5 H INR 1.6 H VBG pH VBG pCO2 VBG pO2 VBG HCO3 VBG O2 Saturation VBG Base Excess Sodium Potassium Chloride Carbon Dioxide Anion Gap BUN Creatinine Estim Creat Clear Calc Estimated GFR POC Glucose Random Glucose Lactic Acid 2.7 H* Calcium Magnesium Total Bilirubin Direct Bilirubin AST ALT Alkaline Phosphatase Troponin I High Sens 16.9 D B-Natriuretic Peptide 490 H Total Protein Albumin Urine Color Urine Appearance Urine pH Ur Specific [place] Urine Protein Urine Glucose (UA) Urine Ketones Urine Blood Urine Nitrite Ur Leukocyte Esterase COVID-19 (DC) COVID-19 Clin Com 04/09/21 04/09/21 13:48 14:12 WBC RBC Hgb Hct MCV MCH MCHC RDW Plt Count MPV Immature Gran % (Auto) Neut % (Auto) Lymph % (Auto) [place] % (Auto) Eos % (Auto) Baso % (Auto) Lymph # (Auto) [place] # (Auto) Eos # (Auto) Baso # (Auto) Abs Immat Gran (auto) Absolute Neuts (auto) Absolute Nucleated RBC Nucleated RBC % (auto) PT INR VBG pH 7.28 L VBG pCO2 52 VBG pO2 36 VBG HCO3 25 VBG O2 Saturation 44.0 VBG Base Excess -1.9 Sodium Potassium Chloride Carbon Dioxide Anion Gap BUN Creatinine Estim Creat Clear Calc Estimated GFR POC Glucose 143 H Random Glucose Lactic Acid Calcium Magnesium Total Bilirubin Direct Bilirubin AST ALT Alkaline Phosphatase Troponin I High Sens B-Natriuretic Peptide Total Protein Albumin Urine Color Urine Appearance Urine pH Ur Specific [place] Urine Protein Urine Glucose (UA) Urine Ketones Urine Blood Urine Nitrite Ur Leukocyte Esterase COVID-19 (DC) COVID-19 Clin Com Imaging Radiologist's impression: Impressions Cervical Spine CT 04/08/21 16:17 IMPRESSION: 1. No acute bony abnormality or prevertebral soft tissue swelling. 2. Multilevel degenerative disc and degenerative facet changes. 3. Reversal cervical lordosis with dextrocurvature. Mild grade 0-1 spondylolisthesis at both C3-C4 and C4-C5 likely secondary to the degenerative changes. Head CT 04/08/21 16:18 IMPRESSION: 1. No acute intracranial hemorrhage, hematoma, or extra-axial fluid collection. 2. Generalized atrophic changes with moderate to prominent bilateral periventricular white matter gliosis likely related to chronic small vessel ischemic changes. No mass effect or edema. Chest X-Ray 04/08/21 16:23 IMPRESSION: Chronic degenerative noted. No acute findings. Hip/Pelvis X-Ray 04/08/21 16:23 IMPRESSION: Chronic degenerative noted. No acute findings. Lumbar Spine X-Ray 04/08/21 22:50 IMPRESSION: No acute abnormality of lumbar spine. Marked degenerative spondylosis of the spine. Chronic central depression superior endplate of L1. Femur CT 04/09/21 02:45 IMPRESSION: Subcutaneous hematoma in the lateral proximal thigh with surrounding contusion. Assessment and Plan (1) Afib: Status: Acute (2) Hypotension: Status: Acute 85-year-old female who presented with weakness and fall and had left buttock area hematoma. She is in AFib with RVR and is quite hypertensive at this point. She has been fluid resuscitated appropriately. Potential cause for hypotension is hypovolemia from blood loss forces some infective process. She has AFib with RVR which I think is reaction to hypotension rather than the cause for hypotension. AFib rarely causes any significant hypotension. In any case I think she should be resuscitated. Please send blood cultures. She should have an active type and screen in case she requires blood. We will do a limited echocardiogram to make sure she does not have a pericardial effusion or some other cause for her hypotension. We will follow along with you. Thank you for allowing me to participate in the care of your patient. Please feel free to contact me if you have any questions. Procedures Date of Service Date of Service: 04/09/21
[2021-04-09 14:52] LABS: Alanine Aminotransferase 13 U/L (0-31); Albumin Level 2.9 g/dL (3.5-5.0); Alkaline Phosphatase 47 U/L (39-117); Anion Gap 12 (12-20); Aspartate Amino Transferase 14 U/L (5-31); Bilirubin Direct 0.3 mg/dL (0.0-0.5); Bilirubin Total 0.7 mg/dL (0.0-1.0); Blood Urea Nitrogen 26 mg/dL (9-16); Calcium 8.8 mg/dL (8.4-10.2); Carbon Dioxide 26 mmol/L (22-29); Chloride 107 mmol/L (96-108); Creatinine Clr Calc Pharmacy 22.5; Estimated Glomerular Filt Rate 26; Glucose Random 144 mg/dL (60-115); Potassium 5.2 mmol/L (3.3-5.1); Sodium 140 mmol/L (135-145)
[2021-04-09 15:36] LABS: Reflex Lactate? Lactic Acid Added
--- NOTE | 2021-04-09 17:22 | MHC.CM.PN ---
Addendum entered by Dhara Mendoza 04/09/21 17:40: Pt active with [facility]. Referral was not placed with [facility]. Referral to follow placed with [facility]. Original Note: Pt admitted to ICU, 259. IMM reviewed and signed by HCP/daughterStormy. Copy mailed. Pt responsive to name and pain. On pressors. A-fib with RVR-120's now. Awaiting transfer to ICU. Family and medical claims assistant in to see pt with permission of Kristel SPENCE. Daugther/HCP Stormy Tawny and , Zak in to visit with patient and [place] medical claims assistant. [place] medical claims assistant gave pt sacrament of the sick and prayed with the family. Pt transported to ICU. Belongings given including gold necklace. HCP on file. HCP/daughter Stormy Yoder ([phone]). PCP Nick Wilson. Pt has private pay services through [facility] and PT through [facility]. [facility] has just accepted pt for [facility] today, prior to pt decline in medical condition. Pt uses a wheelchair, walker, commode and stair lift at home. D/C plan pending pt recovery. CM contact information given to Stormy. Also given ICU contact information. CM to follow for d/c needs.
[2021-04-09 17:30] LABS: MANUAL DIFF FLAG NO
[2021-04-09 17:33] LABS: Basophils Percent Auto 0.3 % (0-2); Hematocrit 35.2 % (37.0-47.0); Hemoglobin 11.6 g/dl (12.0-16.0); Imm Gran Abs Auto 0.09 X10*3/uL (0.00-0.03); Imm Gran Pct Auto 0.7 % (0.0-0.4); Lymphocytes Absolute Auto 1.6 X10*3/uL (1.2-4.9); Lymphocytes Percent Auto 12.8 % (20-40); Mean Corpuscular Hemoglobin 33.2 pg (27.0-33.0); Mean Corpuscular Volume 100.9 fL (80.0-98.0); Mean Platelet Volume 11.1 fL (9.4-12.3); Monocytes Absolute Auto 1.2 X10*3/uL (0.1-1.2); Monocytes Percent Auto 9.4 % (2-11); Neutrophils Absolute Auto 9.8 x10*3/uL (2.0-8.3); Neutrophils Percent Auto 76.8 % (45-73); Platelet Count 297 X10*3/uL (160-400); Red Blood Count 3.49 X10*6/uL (4.20-5.50); Red Cell Distribution Width 13.9 % (11.0-16.0); White Blood Count 12.7 X10*3/uL (4.8-10.8)
[2021-04-09] MEDS: Amiodarone/Dextrose 150 MG/100 ML PLAST..BAG 600 MG IV (17:49)
[2021-04-09] MEDS: Albumin Human 25 % 100 ML IV ×2 (17:51→19:56)
[2021-04-09 17:55] LABS: Anion Gap 12 (12-20); Blood Urea Nitrogen 26 mg/dL (9-16); Carbon Dioxide 24 mmol/L (22-29); Chloride 108 mmol/L (96-108); Creatinine Clr Calc Pharmacy 23.3; Estimated Glomerular Filt Rate 27; Glucose Random 143 mg/dL (60-115); Potassium 5.3 mmol/L (3.3-5.1); Sodium 139 mmol/L (135-145)
[2021-04-09] MEDS: Amiodarone HCL 900 MG in 0.9 % Sodium Chloride 500 ML 34.53 MG IVCONT (18:00)
[2021-04-09] MEDS: Phenylephrine HCL 20 MG in 0.9 % Sodium Chloride 250 ML 30.58 MG IVCONT (18:05)
[2021-04-09] MEDS: cefEPime HCl 1 GM in 0.9 % Sodium Chloride 50 ML IV (18:22)
[2021-04-09] MEDS: vancomycin HCL 1,250 MG in 0.9 % Sodium Chloride 250 ML 166.67 MG IV (18:36)
[2021-04-09 18:37] LABS: Appearance Urine CLEAR; Color Urine YELLOW; Glucose Urine UA NEG (NEG); Leukocyte Esterase Urine NEG (NEG); Nitrite Urine NEG (NEG); PH 5.5 (5.0-8.0); UACC Culture Trigger NO; Urine Blood TRACE (NEG); Urine Ketones 5 MG/DL (NEG); Urine Protein TRACE MG/DL (NEG-TRACE)
[2021-04-09 18:44] LABS: Bacteria Urine TRACE /LPF; RBC Urine 0-2 /HPF (0); Squamous Epithelial Cell Urine TRACE /LPF; WBC Urine 0 /HPF (0-4)
--- NOTE | 2021-04-09 18:54 | PC.NURSE ---
Received patient from ER around 1700. Patient arousable to name. Restless with care and yelling out, question altered mental status with unknown baseline by this RN. Difficult to assess orientation. MD aware, no new change from ER presentation per MD. A.Fib on tele HR up to 130s. Multiple ordered meds still flagging and not given in ER. On arrival to unit, patient given Amiodarone loading dose and started on maintenance drip. BP trended down to 71/52 immediately following loading dose, MD aware. Started ordered Bharat drip at starting dose (see JUN). BP improved to 128/40. Remains A.fib but HR trending down to mid 80s on tele, MD aware. 16F Bot[place] catheter inserted per order. Output of 120 ml light luis urine. Outstanding urine collected. Following urine collections, ordered antibiotics administered. Labs collected. RIJ TLC dressing changed. Bedbath given. Placed on prevalon liat system for skin care. Report given to oncoming RN.
[2021-04-09 19:12] LABS: Reflex Lactate? 2 Y
[2021-04-09 19:50] LABS: ~Lactic Acid-LAB USE ONLY 2.7 mmol/L (0.5-2.0)
--- NOTE | 2021-04-09 20:52 | P.HPCC_ITS ---
History of Present Illness Date of Service: 04/09/21 Chief Complaint: Fall 85-year-old female with past medical history of aortic stenosis,? atrial fibrillation ( on Eliquis)? hypertension,? chronic kidney disease stage III,CAD s/p MICHAEL, congestive heart failure,? hypothyroidism,? orthostatic tremors, and? multiple falls at home presented to? emergency department? after? sustaining a? witnessed fall at home on 04/08/21. According to the , patient might have struck her head during the fall, but no loss? of consciousness.? Patient does have a baseline confusion? and forgetfulness that has worsened in the past year. In the emergency room,? patient? initial vital signs and laboratory data were stable on 04/08/21. There was a noticeable hematoma on left hip noted on assessment and confirmed in imaging.? Head CT/cervical spine negative for? acute issues. She was kept in the emergency room for a day for observation.? ? Today,? Patient went? into AFib RVR to 160s,? blood pressure dropped to SBP 70s, and? hematoma was noted to increase in size in imaging. Head CT continues to show no acute bleed.? She required a central line placement and was started on? phenylephrine.? Cardiology consulted in the ED, Dr Payne, who stated hypotension likely a result from is hypovolemia from blood loss forces vs infective process, he also believed AFIB a result from hypotenson. ? She has? mild increase in WBC, no clear source for infection, Urine negative for UTI, no chest pathology and no abdominal complaints.? Hemoglobin did drop from 12.9 to 11.6.? ? Patient be admitted to the ICU for hypovolemic shock requiring pressor support Review of Systems Review of Systems: unable to do due to patient confusion [facility] Past Medical History Medical History Atrial fibrillation CHF (congestive heart failure) COPD (chronic obstructive pulmonary disease) High cholesterol HTN (hypertension) Hypothyroid Osteoporosis Social History Social History Household Members: Family Unable to assess alcohol history related to: Unable to respond Patient Tobacco Use Status: Former Tobacco user Use of substances other than those prescribed or required for medical reasons: Unable to respond Advance Directives: No Advance Directives Information Provided: Yes Recently lost weight without trying: Unsure Nutrition Risks: No Nutritional Risk Patient : No : No Poor oral hygiene: No service: No Current occupational status: retired Meds Allergies Allergy/AdvReac Type Severity Reaction Status Date / Time Penicillins Allergy Mild RASH Verified 04/08/21 15:30 Hfjkikv-[id number]-SkV Reductase Allergy Unknown MUSCLE Verified 04/08/21 15:30 Inhibitor ACHES AND [Xsijdlp-Nqe-Hdh Reductase STIFFNESS Inhibitor] Sulfa (Sulfonamide Allergy Unknown RASH Verified 04/08/21 15:30 Antibiotics) Active Medications: Current Medications Acetaminophen (Acetaminophen 325 Mg Tablet) 650 mg PO Q6H PRN PRN Reason: Pain, Moderate (Pain Scale 4-6 Duloxetine HCl (Duloxetine Hcl 30 Mg Capsule.Dr) 30 mg PO BID [facility] Last Admin: 04/09/21 17:48 Dose: Not Given Documented by: Norepinephrine Bitartrate (Levophed) 8 mg in 250 mls @ 0 mls/hr IVCONT .Q0M LANIE; Protocol Phenylephrine HCl 20 mg/ (Sodium Chloride) 252 mls @ 0 mls/hr IVCONT .Q0M LANIE; Protocol Last Titration: 04/09/21 19:40 Dose: 0.7 mcg/kg/min, 42.81 mls/hr Documented by: Amiodarone HCl 900 mg/ Sodium (Chloride) 518 mls @ 34.533 mls/hr IVCONT .Q15H1M LANIE; Protocol Last Admin: 04/09/21 18:00 Dose: 1 mg/min, 34.53 mls/hr Documented by: Levothyroxine Sodium (Levothyroxine Sodium 50 Mcg Tablet) 50 mcg PO DAILY@0600 [facility] Last Admin: 04/09/21 17:48 Dose: Not Given Documented by: Pharmacy Consult (Consult Rx Perform Med Rec) 1 each MISCELLANE ONCE PRN PRN Reason: Consult order Home Medications Medication Instructions Recorded Confirmed Last Taken Type apixaban 5 mg tablet (Eliquis) 5 mg PO BID 04/08/21 04/08/21 04/08/21 History calcium citrate 200 mg 2 tab PO BEDTIME 04/08/21 04/08/21 04/07/21 History calcium-vitamin D3 6.25 mcg (250 unit) tablet clopidogrel 75 mg tablet 1 tab PO DAILY 12/04/08/21 04/08/21 History duloxetine 30 mg capsule,delayed 1 cap PO BID 04/08/21 04/08/21 04/08/21 History release ezetimibe 10 mg tablet 1 tab PO DAILY 04/08/21 04/08/21 04/08/21 History fluticasone fur. 100 mcg-umeclid 1 puff INHALATION DAILY 04/08/21 04/08/21 04/08/21 History 62.5 mcg-vilant 25 mcg inhalat.powder (Trelegy Ellipta) furosemide 40 mg tablet 1 tab PO DAILY 04/08/21 04/08/21 04/08/21 History icosapent ethyl 1 gram capsule 2 cap PO BID 04/08/21 04/08/21 04/08/21 History (Vascepa) levothyroxine 50 mcg tablet 1 tab PO DAILY 04/08/21 04/08/21 04/08/21 History metoprolol succinate 50 mg 1 tab PO DAILY 04/08/21 04/08/21 04/08/21 History tablet,extended release 24 hr potassium chloride 10 mEq 40 meq PO DAILY 04/08/21 04/08/21 04/08/21 History tablet,extended release(part/cryst) (Klor-Con M) Physical Exam Vital Signs: Vital Signs: Last Vital Signs Temp 98.4 F 04/09/21 20:00 Pulse 104 H 04/09/21 20:00 Resp 20 04/09/21 20:00 BP 128/66 04/09/21 20:00 Pulse Ox 97 04/09/21 20:00 Oxygen Flow Rate 4 04/09/21 15:08 BMI result Body Mass Index 32.5 Constitutional: Elderly female, alert, in no acute distress. Mental Status: Oriented to person only. able to answer some yes and no questions Eyes: Pupils are equal, round and reactive to light. Ear, Nose and Throat: Oropharynx clear, mucous membranes moist. Neck: Supple, Full range of motion. Respiratory: Clear to auscultation. No wheezing, rales or rhonchi. Respiration rate is regular nonlabored Cardiovascular: atrial fibrillation rate control. No murmurs, rubs or gallops. No edema Gastrointestinal: Abdomen soft, non-tender, non-distended. Normal bowel sounds. Neurologic: Appears grossly intact .moves all extremities spontaneously. Sensation intact bilaterally. Skin: Left thigh hematoma. No rashes? Musculoskeletal: Left arm with very limited range of motion. Ambulates with a walker. No cyanosis or clubbing. No gross deformities. Results Labs CBC and Chem 7: 04/09/21 17:24 04/09/21 17:24 Labs: Laboratory Results - last 24 hr 04/08/21 04/09/21 04/09/21 23:49 01:32 01:32 MCV 99.3 H MCH 33.5 H MCHC 33.7 RDW 13.5 Plt Count 337 MPV 11.0 Immature Gran % (Auto) 0.6 H Neut % (Auto) 66.8 Lymph % (Auto) 21.3 [place] % (Auto) 10.6 Eos % (Auto) 0.3 Baso % (Auto) 0.4 Lymph # (Auto) 2.5 [place] # (Auto) 1.3 H Eos # (Auto) 0.0 Baso # (Auto) 0.1 Abs Immat Gran (auto) 0.07 H Absolute Neuts (auto) 8.0 Absolute Nucleated RBC 0.000 Nucleated RBC % (auto) 0.0 PT INR VBG pH VBG pCO2 VBG pO2 VBG HCO3 VBG O2 Saturation VBG Base Excess Anion Gap Estim Creat Clear Calc Estimated GFR POC Glucose Random Glucose Lactic Acid Lactic Acid F/U @ 2Hr Lactic Acid F/U @ 4Hr Calcium Total Bilirubin Direct Bilirubin AST ALT Alkaline Phosphatase Troponin I High Sens 9.5 B-Natriuretic Peptide Total Protein Albumin Urine Color YELLOW Urine Appearance CLEAR Urine pH 6.0 Ur Specific [place] 1.010 Urine Protein NEG Urine Glucose (UA) NEG Urine Ketones NEG Urine Blood NEG Urine Nitrite NEG Ur Leukocyte Esterase NEG Urine RBC Urine WBC Ur Squamous Epith Cells Urine Bacteria Blood Type Antibody Screen Crossmatch 04/09/21 04/09/21 04/09/21 13:31 13:31 13:31 MCV 99.7 H MCH 32.9 MCHC 33.0 RDW 13.9 Plt Count 359 MPV 11.1 Immature Gran % (Auto) 0.7 H Neut % (Auto) 76.3 H Lymph % (Auto) 13.4 L [place] % (Auto) 9.3 Eos % (Auto) 0.0 Baso % (Auto) 0.3 Lymph # (Auto) 1.6 [place] # (Auto) 1.1 Eos # (Auto) 0.0 Baso # (Auto) 0.0 Abs Immat Gran (auto) 0.08 H Absolute Neuts (auto) 9.3 H Absolute Nucleated RBC 0.000 Nucleated RBC % (auto) 0.0 PT 18.5 H INR 1.6 H VBG pH VBG pCO2 VBG pO2 VBG HCO3 VBG O2 Saturation VBG Base Excess Anion Gap Estim Creat Clear Calc Estimated GFR POC Glucose Random Glucose Lactic Acid 2.7 H* Lactic Acid F/U @ 2Hr Lactic Acid F/U @ 4Hr Calcium Total Bilirubin Direct Bilirubin AST ALT Alkaline Phosphatase Troponin I High Sens B-Natriuretic Peptide Total Protein Albumin Urine Color Urine Appearance Urine pH Ur Specific [place] Urine Protein Urine Glucose (UA) Urine Ketones Urine Blood Urine Nitrite Ur Leukocyte Esterase Urine RBC Urine WBC Ur Squamous Epith Cells Urine Bacteria Blood Type Antibody Screen Crossmatch 04/09/21 04/09/21 04/09/21 13:31 13:48 14:06 MCV MCH MCHC RDW Plt Count MPV Immature Gran % (Auto) Neut % (Auto) Lymph % (Auto) [place] % (Auto) Eos % (Auto) Baso % (Auto) Lymph # (Auto) [place] # (Auto) Eos # (Auto) Baso # (Auto) Abs Immat Gran (auto) Absolute Neuts (auto) Absolute Nucleated RBC Nucleated RBC % (auto) PT INR VBG pH VBG pCO2 VBG pO2 VBG HCO3 VBG O2 Saturation VBG Base Excess Anion Gap 12 Estim Creat Clear Calc 22.5 Estimated GFR 26 POC Glucose 143 H Random Glucose 144 H Lactic Acid Lactic Acid F/U @ 2Hr Lactic Acid F/U @ 4Hr Calcium 8.8 D Total Bilirubin 0.7 Direct Bilirubin 0.3 AST 14 ALT 13 Alkaline Phosphatase 47 Troponin I High Sens 16.9 D B-Natriuretic Peptide 490 H Total Protein 5.0 L D Albumin 2.9 L D Urine Color Urine Appearance Urine pH Ur Specific [place] Urine Protein Urine Glucose (UA) Urine Ketones Urine Blood Urine Nitrite Ur Leukocyte Esterase Urine RBC Urine WBC Ur Squamous Epith Cells Urine Bacteria Blood Type Antibody Screen Crossmatch 04/09/21 04/09/21 04/09/21 14:12 15:44 17:05 MCV MCH MCHC RDW Plt Count MPV Immature Gran % (Auto) Neut % (Auto) Lymph % (Auto) [place] % (Auto) Eos % (Auto) Baso % (Auto) Lymph # (Auto) [place] # (Auto) Eos # (Auto) Baso # (Auto) Abs Immat Gran (auto) Absolute Neuts (auto) Absolute Nucleated RBC Nucleated RBC % (auto) PT INR VBG pH 7.28 L VBG pCO2 52 VBG pO2 36 VBG HCO3 25 VBG O2 Saturation 44.0 VBG Base Excess -1.9 Anion Gap Estim Creat Clear Calc Estimated GFR POC Glucose Random Glucose Lactic Acid Lactic Acid F/U @ 2Hr 4.0 H* Lactic Acid F/U @ 4Hr Calcium Total Bilirubin Direct Bilirubin AST ALT Alkaline Phosphatase Troponin I High Sens B-Natriuretic Peptide Total Protein Albumin Urine Color Urine Appearance Urine pH Ur Specific [place] Urine Protein Urine Glucose (UA) Urine Ketones Urine Blood Urine Nitrite Ur Leukocyte Esterase Urine RBC Urine WBC Ur Squamous Epith Cells Urine Bacteria Blood Type O Positive Antibody Screen NEGATIVE Crossmatch See Detail 04/09/21 04/09/21 04/09/21 17:24 17:24 18:28 MCV 100.9 H MCH 33.2 H MCHC 33.0 RDW 13.9 Plt Count 297 MPV 11.1 Immature Gran % (Auto) 0.7 H Neut % (Auto) 76.8 H Lymph % (Auto) 12.8 L [place] % (Auto) 9.4 Eos % (Auto) 0.0 Baso % (Auto) 0.3 Lymph # (Auto) 1.6 [place] # (Auto) 1.2 Eos # (Auto) 0.0 Baso # (Auto) 0.0 Abs Immat Gran (auto) 0.09 H Absolute Neuts (auto) 9.8 H Absolute Nucleated RBC 0.000 Nucleated RBC % (auto) 0.0 PT INR VBG pH VBG pCO2 VBG pO2 VBG HCO3 VBG O2 Saturation VBG Base Excess Anion Gap 12 Estim Creat Clear Calc 23.3 Estimated GFR 27 POC Glucose Random Glucose 143 H Lactic Acid Lactic Acid F/U @ 2Hr Lactic Acid F/U @ 4Hr Calcium 9.0 Total Bilirubin Direct Bilirubin AST ALT Alkaline Phosphatase Troponin I High Sens B-Natriuretic Peptide Total Protein Albumin Urine Color YELLOW Urine Appearance CLEAR Urine pH 5.5 Ur Specific [place] 1.010 Urine Protein TRACE Urine Glucose (UA) NEG Urine Ketones 5 Urine Blood TRACE Urine Nitrite NEG Ur Leukocyte Esterase NEG Urine RBC 0-2 Urine WBC 0 Ur Squamous Epith Cells TRACE Urine Bacteria TRACE Blood Type Antibody Screen Crossmatch 04/09/21 19:22 MCV MCH MCHC RDW Plt Count MPV Immature Gran % (Auto) Neut % (Auto) Lymph % (Auto) [place] % (Auto) Eos % (Auto) Baso % (Auto) Lymph # (Auto) [place] # (Auto) Eos # (Auto) Baso # (Auto) Abs Immat Gran (auto) Absolute Neuts (auto) Absolute Nucleated RBC Nucleated RBC % (auto) PT INR VBG pH VBG pCO2 VBG pO2 VBG HCO3 VBG O2 Saturation VBG Base Excess Anion Gap Estim Creat Clear Calc Estimated GFR POC Glucose Random Glucose Lactic Acid Lactic Acid F/U @ 2Hr Lactic Acid F/U @ 4Hr 2.7 H* Calcium Total Bilirubin Direct Bilirubin AST ALT Alkaline Phosphatase Troponin I High Sens B-Natriuretic Peptide Total Protein Albumin Urine Color Urine Appearance Urine pH Ur Specific [place] Urine Protein Urine Glucose (UA) Urine Ketones Urine Blood Urine Nitrite Ur Leukocyte Esterase Urine RBC Urine WBC Ur Squamous Epith Cells Urine Bacteria Blood Type Antibody Screen Crossmatch Imaging Radiologist's Impressions: Impressions Lumbar Spine X-Ray 04/08/21 22:50 IMPRESSION: No acute abnormality of lumbar spine. Marked degenerative spondylosis of the spine. Chronic central depression superior endplate of L1. Femur CT 04/09/21 02:45 IMPRESSION: Subcutaneous hematoma in the lateral proximal thigh with surrounding contusion. Head CT 04/09/21 14:50 IMPRESSION: Very limited exam from motion as described. On the imaging submitted I am not seeing an acute finding but if clinically warranted consider rescanning Once again atrophy and white matter ischemic changes. Hip CT 04/09/21 14:50 IMPRESSION: Slight interval increase in the size of the multilocular hematoma in the subcutaneous fat at the left proximal thigh. Chest X-Ray 04/09/21 16:24 IMPRESSION: 1. Interval placement of a right central venous catheter with its distal tip in the mid to distal SVC. 2. Bilateral low lung volumes. Assessment and Plan (1) Hypovolemic shock: Status: Acute (2) Atrial fibrillation with rapid ventricular response: Status: Acute (3) TABBY (acute kidney injury): Status: Acute (4) Leukocytosis: Status: Acute (5) Hyperkalemia: Status: Acute (6) Fall: Status: Acute 85-year-old female with past medical history of multiple falls at home,? being admitted to the ICU for hypovolemic shock likely from hematoma sustained post fall Neuro:? Fall-? witnessed,? seems? to have hit her head,? but no loss of consciousness.? Head CT/cervical spine negative for acute bleed.? Continue to monitor neuro closely ? Confusion, patient only alert x self, according to daughter Debbie ( [phone]), who is a nurse, reports patient confusion has gotten worse since the summer. States patient being alert x self is more of her baseline.? Cardiac:?? Hypovolemic shock-? Patient hypotension,? elevated lactated to 4, and drop of hgb from 12.9 to 11.6 due to increase in size of hematoma.? She is on Eliquis at home likely? adding to worsening of hematoma. This is likely hypovolemia vs infectious source. There no evidence of acute infection.? On? phenylephrine.? Received x 1 liter of fluids in ED.? Will add albumin for cont fluid resuscitation without. ? Wean off pressors when appropriate.? ?Atrial fibrillation? with RVR- ? she is on Eliquis at home. patient AFib with RVR up to 160s,? received digoxin in the emergency room.? Started on amiodarone? in the ICU,? which achieved rate control.? Try to maintain HR < 120s. Wean amio drip as tolerated? ? Pulmonary:? ?No acute issues Renal:? TABBY-? ? most likely related to hypoperfusion, nonoliguric. ? Received fluids in the ED? Continue to check renal induces and urine output. Continue to closely monitor renal indices. ?Hyperkalemia-? K was 5.3 today,? no T-wave abnormality. ? Receive lactulose,? will repeat BMP.? Endo:? No acute issues.?? GI:? no acute issues ID:? WBC elevated to 12.? No acute infectious process in Chest XRAY. ? Urine negative for UTI.? elevated white count likely elevated from? inflammatory processes after fall.? Continue to closely monitor CBC Heme/Onc:?? ?Hematoma:? hemoglobin drop from 12.59-11.? Closely monitor for? expanding hematoma.? Continue to trend hemoglobin.? Transfuse < 7 ?No acute issues Psych:? No acute issues. Miscellaneous:? no acute issues CODE: ? DNR/DNI confirmed with daughter Debbie? ? Critical care time:? x90 minutes of critical care time ? Case discussed with attending Dr. Mcclain? Critical Care Time Critical Care Time (minutes): 90
[2021-04-09] MEDS: DULoxetine HCl 30 MG CAPSULE.DR PO (22:26)
[2021-04-09] MEDS: Phenylephrine HCL 20 MG in 0.9 % Sodium Chloride 250 ML 42.81 MG IVCONT (23:15)
[2021-04-10] VITALS (24 sets, daily range): BP systolic 92–154; BP diastolic 36–100; PULSE 76–114; RESP 13–30; TEMP 36.3–37.2; O2SAT 92–99; BMI 35.9
[2021-04-10 03:36] LABS: MANUAL DIFF FLAG NO
[2021-04-10 03:38] LABS: Basophils Percent Auto 0.4 % (0-2); Eosinophils Percent Auto 0.2 % (0-4); Hematocrit 25.8 % (37.0-47.0); Hemoglobin 8.5 g/dl (12.0-16.0); Imm Gran Abs Auto 0.07 X10*3/uL (0.00-0.03); Imm Gran Pct Auto 0.7 % (0.0-0.4); Lymphocytes Absolute Auto 1.8 X10*3/uL (1.2-4.9); Lymphocytes Percent Auto 17.7 % (20-40); Mean Corpuscular HGB Conc 32.9 g/dl (31.0-35.0); Mean Corpuscular Hemoglobin 33.6 pg (27.0-33.0); Monocytes Absolute Auto 1.2 X10*3/uL (0.1-1.2); Monocytes Percent Auto 12.1 % (2-11); Neutrophils Absolute Auto 7.1 x10*3/uL (2.0-8.3); Neutrophils Percent Auto 68.9 % (45-73); Platelet Count 231 X10*3/uL (160-400); Red Blood Count 2.53 X10*6/uL (4.20-5.50); White Blood Count 10.2 X10*3/uL (4.8-10.8)
[2021-04-10 03:42] LABS: VBG Base Excess -1.7 mmol/L; VBG HCO3 19 mmol/L (22-26); VBG pCO2 20 mmHg; VBG pH 7.56 (7.32-7.43); VBG pO2 97 mmHg
[2021-04-10 04:02] LABS: Alanine Aminotransferase 12 U/L (0-31); Albumin Level 3.6 g/dL (3.5-5.0); Alkaline Phosphatase 35 U/L (39-117); Anion Gap 16 (12-20); Aspartate Amino Transferase 13 U/L (5-31); Bilirubin Total 0.9 mg/dL (0.0-1.0); Blood Urea Nitrogen 26 mg/dL (9-16); Calcium 8.7 mg/dL (8.4-10.2); Carbon Dioxide 20 mmol/L (22-29); Chloride 110 mmol/L (96-108); Creatinine Clr Calc Pharmacy 27.2; Estimated Glomerular Filt Rate 32; Glucose Random 111 mg/dL (60-115); Magnesium 1.9 mg/dL (1.6-2.6); Phosphorus 3.8 mg/dL (2.7-4.5); Sodium 142 mmol/L (135-145); Total Protein 5.2 g/dL (6.5-8.0)
[2021-04-10] MEDS: Acetaminophen 325 MG TABLET 650 MG PO (04:35)
[2021-04-10] MEDS: Phenylephrine HCL 20 MG in 0.9 % Sodium Chloride 250 ML 42.81 MG IVCONT (04:36)
[2021-04-10] MEDS: Levothyroxine Sodium 50 MCG TABLET PO (05:33)
--- NOTE | 2021-04-10 06:37 | PC.NURSE ---
Recieved pt. Pt was noted to be confused and did not respond to questioning. pt moaned did not report pain when questioned. It was recieved in report that this may be part of her baseline. Pt pupils are perrl, pt did not follow commands. As the night progressed pt became more awake and conversational. Pt at 0600 was responding to questions appropriately however she is forgetful, and reptitive and needs redirection/reorientation. Pt does know the month and her name but did not know she was in the hospital. Pt is able to move all ext independently. Pt is in afib 90s- 110s. She was hypotensive in the 80's on initial assessment, TARIK was increased to 0.7 with good effect and BP through the night 100-120's. Pt was on amiodarone at 1mg until midnight when the rate was reduced to 0.5mg per protocol. Pt LS are dim. No cough. Pt did not have a BM. She was able to swallow food and drink appropriately. She did take PO Meds. - pt has tadeo catheter with output 10-40ml/hr of concentrated urine. Pt has mild weakness and has had multiple falls recently. Skin- pt has a large bruise with hematoma on left hip. Skin was marked to map bruising. No pressure injury noted. At 0600 pt began to pull at TLC however was redirectable but did require multiple redirections.
[2021-04-10 06:53] LABS: Venous Blood Gas Refer to POC result
--- NOTE | 2021-04-10 08:21 | P.CDIC_ITS ---
CDI Concurrent Query Documentation Clarification: PHYSICIAN'S DOCUMENTATION REQUEST Date of Query: 04/10/21820 Patient Name: Debbie Paul Admit Date: 04/09/21 Dear Doctor, A review of the medical record indicates additional documentation may be needed. Please review below and update the documentation accordingly. Clinical Indicators: Risk Factors/Clinical Indicators/Treatments Altered mental status, no history Dementia Per H&P: Confusion, patient only alert to self, according to daughter, reports patient confusion has gotten worse since summer States patient being alert to self is baseline Based on the above, could you clarify in the Progress Notes which, if any of the following, is the most likely etiology of the confusion/altered mental status? * Encephalopathy - indicate type such as metabolic, toxic, septic, alcoholic, hypertensive, etc. * Dementia - indicate type of dementia, such as Alzheimer's, senile, vascular, Lewy body, etc. * Acute delirium - indicate known or suspected etiology, such as postoperative, due to narcotics or other drugs, etc. * Baseline dementia - indicate type, such as Alzheimer's, senile, vascular, Lewy body, etc., and any associated behavioral disturbances (aggressive, combative, or violent behavior) * Acute or subacute confusional state due to (specify known or suspe cted etiology) * Other etiology (please specify) * Unable to determine Use of terms such as suspected, likely, concern for, or probable (associated with a specific diagnosis that is being evaluated, monitored, or treated as if it exists) are acceptable and can be coded in the inpatient setting, when documented at the time of discharge. Thank you, Pia Maxwell RN Extension: [phone] Please use your independent medical judgment in providing your response. THIS QUERY IS PART OF THE PERMANENT MEDICAL RECORD Provider Response: Other ( Acute encephalopathy of unclear etiology on the background of chronic dementia) Other Diagnosis: Acute encephalopathy of unclear etiology on the background of chronic dementia
[2021-04-10] MEDS: DULoxetine HCl 30 MG CAPSULE.DR PO ×2 (08:23→20:02)
--- NOTE | 2021-04-10 10:37 | MHC.CLN ---
F/U PATIENT WITH HYPOVOLEMIC SHCOK. MEDICAL HISTORY INCLUDES CHF AND CKD STAGE 3. NO DIET ORDER. IF PO, RD RECOMMENDS THERAPEUTIC DIET=CARDIAC. SKIN WITH NO PRESSURE AREAS. FOLLOW WITH TEAM.
[2021-04-10] MEDS: Amiodarone HCL 200 MG TABLET PO (11:28)
--- NOTE | 2021-04-10 11:59 | PM.CCPN ---
Subjective Subjective Date of Service: 04/10/21 Interval History: 85-year-old lady with underlying history of Alzheimer's dementia, order stenosis, AFib on Eliquis, CAD status post drug-eluting stent, congestive heart failure, hypothyroidism, multiple falls admitted on 04/09/2021 after patient has been observed emergency room for 2 days after recent fall resulting large left-sided. Patient was planned to be discharged home when she developed AFib with RVR, acute encephalopathy, and hypotension requiring placement of central venous access for vasopressor support. Patient has been started on amiodarone drip , empiric antibiotics, and admitted to the intensive care unit. Overnight patient with resolution of an acute component of her encephalopathy, now back to baseline. Now being titrated off vasopressor support with cultures negative to date. Critical Care Time (minutes): 45 Physical Exam Vital Signs: Vital Signs: Last Vital Signs Temp 98.2 F 04/10/21 11:00 Pulse 99 04/10/21 11:28 Resp 23 H 04/10/21 11:00 BP 128/56 L 04/10/21 11:28 Pulse Ox 97 04/10/21 11:00 Oxygen Flow Rate 4 04/09/21 15:08 BMI result Body Mass Index 35.9 Const: General: no acute distress, alert, awake and confusion Orientation/consciousness: confusion Eyes: Sclerae: sclerae normal EOM: EOMs intact bilaterally Neck: Neck: Yes no lymphadenopathy, Yes trachea midline and Yes supple Resp: Effort & Inspection: normal respiratory effort and no respiratory distress Auscultation: clear to auscultation bilaterally Cardio: Rate: regular rate Rhythm: abnormal rhythm irregularly irregular Heart sounds: no gallops, no murmurs and no rubs GI: Palpation (GI): Soft to palpation and Other GI palpation findings present ( Nontender) Auscultation: normal bowel sounds Neuro: General: confusion Extrem: General: No clubbing, No cyanosis and Yes pedal edema ( trace bilateral) Objective Data Labs CBC & Chem 7: 04/10/21 03:30 04/10/21 03:30 Labs: Laboratory Results - last 24 hr 04/09/21 04/09/21 04/09/21 13:31 13:31 13:31 WBC 12.1 H RBC 3.92 L Hgb 12.9 Hct 39.1 MCV 99.7 H MCH 32.9 MCHC 33.0 RDW 13.9 Plt Count 359 MPV 11.1 Immature Gran % (Auto) 0.7 H Neut % (Auto) 76.3 H Lymph % (Auto) 13.4 L Hinds % (Auto) 9.3 Eos % (Auto) 0.0 Baso % (Auto) 0.3 Lymph # (Auto) 1.6 Hinds # (Auto) 1.1 Eos # (Auto) 0.0 Baso # (Auto) 0.0 Abs Immat Gran (auto) 0.08 H Absolute Neuts (auto) 9.3 H Absolute Nucleated RBC 0.000 Nucleated RBC % (auto) 0.0 PT 18.5 H INR 1.6 H VBG pH VBG pCO2 VBG pO2 VBG HCO3 VBG O2 Saturation VBG Base Excess Sodium Potassium Chloride Carbon Dioxide Anion Gap BUN Creatinine Estim Creat Clear Calc Estimated GFR POC Glucose Random Glucose Lactic Acid 2.7 H* Lactic Acid F/U @ 2Hr Lactic Acid F/U @ 4Hr Calcium Phosphorus Magnesium Total Bilirubin Direct Bilirubin AST ALT Alkaline Phosphatase Total Creatine Kinase Troponin I High Sens B-Natriuretic Peptide Total Protein Albumin Urine Color Urine Appearance Urine pH Ur Specific [place] Urine Protein Urine Glucose (UA) Urine Ketones Urine Blood Urine Nitrite Ur Leukocyte Esterase Urine RBC Urine WBC Ur Squamous Epith Cells Urine Bacteria Blood Type Antibody Screen Crossmatch 04/09/21 04/09/21 04/09/21 13:31 13:48 14:06 WBC RBC Hgb Hct MCV MCH MCHC RDW Plt Count MPV Immature Gran % (Auto) Neut % (Auto) Lymph % (Auto) Hinds % (Auto) Eos % (Auto) Baso % (Auto) Lymph # (Auto) Hinds # (Auto) Eos # (Auto) Baso # (Auto) Abs Immat Gran (auto) Absolute Neuts (auto) Absolute Nucleated RBC Nucleated RBC % (auto) PT INR VBG pH VBG pCO2 VBG pO2 VBG HCO3 VBG O2 Saturation VBG Base Excess Sodium 140 Potassium 5.2 H D Chloride 107 Carbon Dioxide 26 Anion Gap 12 BUN 26 H D Creatinine 1.86 H Estim Creat Clear Calc 22.5 Estimated GFR 26 POC Glucose 143 H Random Glucose 144 H Lactic Acid Lactic Acid F/U @ 2Hr Lactic Acid F/U @ 4Hr Calcium 8.8 D Phosphorus Magnesium Total Bilirubin 0.7 Direct Bilirubin 0.3 AST 14 ALT 13 Alkaline Phosphatase 47 Total Creatine Kinase Troponin I High Sens 16.9 D B-Natriuretic Peptide 490 H Total Protein 5.0 L D Albumin 2.9 L D Urine Color Urine Appearance Urine pH Ur Specific [place] Urine Protein Urine Glucose (UA) Urine Ketones Urine Blood Urine Nitrite Ur Leukocyte Esterase Urine RBC Urine WBC Ur Squamous Epith Cells Urine Bacteria Blood Type Antibody Screen Crossmatch 04/09/21 04/09/21 04/09/21 14:12 15:44 17:05 WBC RBC Hgb Hct MCV MCH MCHC RDW Plt Count MPV Immature Gran % (Auto) Neut % (Auto) Lymph % (Auto) Hinds % (Auto) Eos % (Auto) Baso % (Auto) Lymph # (Auto) Hinds # (Auto) Eos # (Auto) Baso # (Auto) Abs Immat Gran (auto) Absolute Neuts (auto) Absolute Nucleated RBC Nucleated RBC % (auto) PT INR VBG pH 7.28 L VBG pCO2 52 VBG pO2 36 VBG HCO3 25 VBG O2 Saturation 44.0 VBG Base Excess -1.9 Sodium Potassium Chloride Carbon Dioxide Anion Gap BUN Creatinine Estim Creat Clear Calc Estimated GFR POC Glucose Random Glucose Lactic Acid Lactic Acid F/U @ 2Hr 4.0 H* Lactic Acid F/U @ 4Hr Calcium Phosphorus Magnesium Total Bilirubin Direct Bilirubin AST ALT Alkaline Phosphatase Total Creatine Kinase Troponin I High Sens B-Natriuretic Peptide Total Protein Albumin Urine Color Urine Appearance Urine pH Ur Specific [place] Urine Protein Urine Glucose (UA) Urine Ketones Urine Blood Urine Nitrite Ur Leukocyte Esterase Urine RBC Urine WBC Ur Squamous Epith Cells Urine Bacteria Blood Type O Positive Antibody Screen NEGATIVE Crossmatch See Detail 04/09/21 04/09/21 04/09/21 17:24 17:24 18:28 WBC 12.7 H RBC 3.49 L Hgb 11.6 L Hct 35.2 L MCV 100.9 H MCH 33.2 H MCHC 33.0 RDW 13.9 Plt Count 297 MPV 11.1 Immature Gran % (Auto) 0.7 H Neut % (Auto) 76.8 H Lymph % (Auto) 12.8 L Hinds % (Auto) 9.4 Eos % (Auto) 0.0 Baso % (Auto) 0.3 Lymph # (Auto) 1.6 Hinds # (Auto) 1.2 Eos # (Auto) 0.0 Baso # (Auto) 0.0 Abs Immat Gran (auto) 0.09 H Absolute Neuts (auto) 9.8 H Absolute Nucleated RBC 0.000 Nucleated RBC % (auto) 0.0 PT INR VBG pH VBG pCO2 VBG pO2 VBG HCO3 VBG O2 Saturation VBG Base Excess Sodium 139 Potassium 5.3 H Chloride 108 Carbon Dioxide 24 Anion Gap 12 BUN 26 H Creatinine 1.80 H Estim Creat Clear Calc 23.3 Estimated GFR 27 POC Glucose Random Glucose 143 H Lactic Acid Lactic Acid F/U @ 2Hr Lactic Acid F/U @ 4Hr Calcium 9.0 Phosphorus Magnesium Total Bilirubin Direct Bilirubin AST ALT Alkaline Phosphatase Total Creatine Kinase Troponin I High Sens B-Natriuretic Peptide Total Protein Albumin Urine Color YELLOW Urine Appearance CLEAR Urine pH 5.5 Ur Specific [place] 1.010 Urine Protein TRACE Urine Glucose (UA) NEG Urine Ketones 5 Urine Blood TRACE Urine Nitrite NEG Ur Leukocyte Esterase NEG Urine RBC 0-2 Urine WBC 0 Ur Squamous Epith Cells TRACE Urine Bacteria TRACE Blood Type Antibody Screen Crossmatch 04/09/21 04/10/21 04/10/21 19:22 03:30 03:30 WBC 10.2 RBC 2.53 L D Hgb 8.5 L D Hct 25.8 L D MCV 102.0 H MCH 33.6 H MCHC 32.9 RDW 14.0 Plt Count 231 MPV 11.0 Immature Gran % (Auto) 0.7 H Neut % (Auto) 68.9 Lymph % (Auto) 17.7 L Hinds % (Auto) 12.1 H Eos % (Auto) 0.2 Baso % (Auto) 0.4 Lymph # (Auto) 1.8 Hinds # (Auto) 1.2 Eos # (Auto) 0.0 Baso # (Auto) 0.0 Abs Immat Gran (auto) 0.07 H Absolute Neuts (auto) 7.1 Absolute Nucleated RBC 0.000 Nucleated RBC % (auto) 0.0 PT INR VBG pH VBG pCO2 VBG pO2 VBG HCO3 VBG O2 Saturation VBG Base Excess Sodium 142 Potassium 4.0 D Chloride 110 H Carbon Dioxide 20 L Anion Gap 16 BUN 26 H Creatinine 1.54 H Estim Creat Clear Calc 27.2 Estimated GFR 32 POC Glucose Random Glucose 111 Lactic Acid Lactic Acid F/U @ 2Hr Lactic Acid F/U @ 4Hr 2.7 H* Calcium 8.7 Phosphorus 3.8 Magnesium 1.9 Total Bilirubin 0.9 Direct Bilirubin AST 13 ALT 12 Alkaline Phosphatase 35 L D Total Creatine Kinase Troponin I High Sens B-Natriuretic Peptide Total Protein 5.2 L Albumin 3.6 D Urine Color Urine Appearance Urine pH Ur Specific [place] Urine Protein Urine Glucose (UA) Urine Ketones Urine Blood Urine Nitrite Ur Leukocyte Esterase Urine RBC Urine WBC Ur Squamous Epith Cells Urine Bacteria Blood Type Antibody Screen Crossmatch 04/10/21 04/10/21 03:30 03:35 WBC RBC Hgb Hct MCV MCH MCHC RDW Plt Count MPV Immature Gran % (Auto) Neut % (Auto) Lymph % (Auto) Hinds % (Auto) Eos % (Auto) Baso % (Auto) Lymph # (Auto) [place] # (Auto) Eos # (Auto) Baso # (Auto) Abs Immat Gran (auto) Absolute Neuts (auto) Absolute Nucleated RBC Nucleated RBC % (auto) PT INR VBG pH 7.56 H VBG pCO2 20 VBG pO2 97 VBG HCO3 19 L VBG O2 Saturation 99.0 VBG Base Excess -1.7 Sodium Potassium Chloride Carbon Dioxide Anion Gap BUN Creatinine Estim Creat Clear Calc Estimated GFR POC Glucose Random Glucose Lactic Acid Lactic Acid F/U @ 2Hr Lactic Acid F/U @ 4Hr Calcium Phosphorus Magnesium Total Bilirubin Direct Bilirubin AST ALT Alkaline Phosphatase Total Creatine Kinase 32 Troponin I High Sens B-Natriuretic Peptide Total Protein Albumin Urine Color Urine Appearance Urine pH Ur Specific [place] Urine Protein Urine Glucose (UA) Urine Ketones Urine Blood Urine Nitrite Ur Leukocyte Esterase Urine RBC Urine WBC Ur Squamous Epith Cells Urine Bacteria Blood Type Antibody Screen Crossmatch Progress Note: A&P Assessment and plan (1) Atrial fibrillation with rapid ventricular response: Status: Acute (2) TABBY (acute kidney injury): Status: Acute (3) Hypovolemic shock: Status: Acute (4) Traumatic hematoma of left thigh: Status: Acute Assessment and Plan: Assessment: 85-year-old lady with underlying dementia, AFib on anticoagulation, CKD, CAD admitted after mechanical fall with left-sided hematoma further complicated by AFib with RVR and hypotension Plan: Neuro: acute encephalopathy on the background of known Alzheimer's dementia, resolved. Patient back to baseline per her daughter. Cardiac: AFib with RVR resulting in hypotension, unclear if secondary to trauma or hypovolemia. Amiodarone loaded, improved. Cardiology service care appreciated. Underlying history of CAD. continue to titrate of vasopressor support as tolerated. Pulmonary: No acute issues. Renal: acute kidney injury, likely secondary to poor forward flow perfusion from AFib with RVR, improving. Non oliguric. Continue to monitor renal indices and urine output. Endo: No acute issues. GI: No acute issues. ID: No acute issues Heme/Onc: Left thigh hematoma after mechanical fall in a patient on Plavix and Eliquis. Plavix and Eliquis held. Continue to monitor hemoglobin and transfuse to hemoglobin of 7. Psych: No acute issues. Miscellaneous: No acute issues. Prophylaxis: pneumatic compression Diet: regular Critical care time spent: 45 minutes Quality Stroke Does the patient have a stroke diagnosis?: No VTE Prior VTE?: No VTE Risk Level:: Medical - moderate - high VTE Device Contraindication: Treatment Not Indicated VTE Drug Contraindication: N/A - Med Ordered
[2021-04-10 12:49] LABS: MANUAL DIFF FLAG NO
[2021-04-10 12:54] LABS: Basophils Percent Auto 0.4 % (0-2); Eosinophils Absolute Auto 0.1 X10*3/uL (0.0-0.4); Eosinophils Percent Auto 0.5 % (0-4); Hematocrit 26.2 % (37.0-47.0); Hemoglobin 8.6 g/dl (12.0-16.0); Imm Gran Abs Auto 0.08 X10*3/uL (0.00-0.03); Imm Gran Pct Auto 0.9 % (0.0-0.4); Lymphocytes Absolute Auto 1.2 X10*3/uL (1.2-4.9); Lymphocytes Percent Auto 12.4 % (20-40); Mean Corpuscular HGB Conc 32.8 g/dl (31.0-35.0); Mean Corpuscular Hemoglobin 33.5 pg (27.0-33.0); Mean Corpuscular Volume 101.9 fL (80.0-98.0); Mean Platelet Volume 10.7 fL (9.4-12.3); Monocytes Absolute Auto 1.2 X10*3/uL (0.1-1.2); Monocytes Percent Auto 12.9 % (2-11); NRBC Pct Auto 0.2 /100WBC (0.0-0.2); Neutrophils Absolute Auto 6.8 x10*3/uL (2.0-8.3); Neutrophils Percent Auto 72.9 % (45-73); Platelet Count 224 X10*3/uL (160-400); Red Blood Count 2.57 X10*6/uL (4.20-5.50); Red Cell Distribution Width 14.1 % (11.0-16.0); White Blood Count 9.3 X10*3/uL (4.8-10.8)
--- NOTE | 2021-04-10 16:40 | PM.CCN ---
Critical Care Event Note Summary Date of Service: 04/10/21 Code activated: No Narrative: Patient with acute development of left upper extremity weakness and facial droop at approximately 3:[address] head obtained - no evidence of intracranial hemorrhage. Patient is not a tPA candidate secondary to large subacute thigh hematoma with drop in hemoglobin and not area retrieval procedure candidate secondary to underlying code status. Patient will be continued to be monitored on telemetry. Neurology evaluation requested. Critical Care Time (minutes): 30
--- NOTE | 2021-04-10 18:08 | MHC.STROKE ---
Addendum entered by Janette Duron RN 04/11/21 14:52: PATIENT IS LESS RESPONSIVE TODAY, NOT FOLLOWING ALL INSTRUCTIONS WHICH IS DIFFERENT FROM YESTERDAY, SPEECH SLOW, LEFT FACIAL DROOP, LUE REMAINS FLACCID NOTED YESTERDAY, NOW LEFT LEG ALSO NO MOVEMENT AGAINST GRAVITY WHICH IS ALSO DIFFERENT FROM YESTERDAY, STROKE IN EVOLUTION, SPOKE WITH DR REILLY AND MRI WOULD NOT WORM PACKER. A CT HEAD COULD BE DONE TO ASSESS EVOLUTION OF THE STROKE AND CONFIRM LOCATION. I MAINTAIN ASPIRATION PRECAUTIONS. WILL CONTINUE TO FOLLOW. Addendum entered by Janette Duron RN 04/10/21 18:25: RECOMMEND PT/OT Original Note: [address] RAMIREZ OF STROKE PROTOCOL ACTIVATION. ONSET OF LEFT DROOP AND LEFT ARM FLACCID AT APPROX. 1530. STAT CT HEAD DONE, NO BLEED. INPATIENT STROKE. I REVIEWED CASE WITH DR RAMIREZ AND DR REILLY. PATIENT IS EXCLUDED FROM TPA (ALTEPLASE) DUE TO RECENT FALL AND LEFT FEMUR HEMATOMA. SHE HAS TABBY AND CTA WOULD BE CONTRAINDICATED, SHE IS ALSO A DNR/DNI THEREFORE SHE IS EXCLUDED A THROMBECTOMY CANDIDATE. HER NIHSS = 6, LEFT DROOP AND LEFT ARM FLACCID. SHE WAS ABLE TO ANSWER ALL MY QUESTIONS, SPEAK WITHOUT DIFFICULTY, MOVE HER RIGHT ARM, RIGHT LEG AND LEFT LEG OFF THE BED. NO SENSORY DEFICIT, GAZE, OR VISION LOSS, DIFFICULT TO ASSESS ATAXIA, SHE PASSED SWALLOW SCREEN ALTHOUGH SHE DOES HAVE A SLIGHT DELAY. I DID REVIEW THE PLAN OF CARE WITH HER. RECOMMENDING LIPID PANEL, SHE HAS A HISTORY OF AFIB AND IS OFF ANTICOAGULATION AT THIS TIME. NEUROLOGIST NOTE PENDING.
--- NOTE | 2021-04-10 18:34 | PC.NURSE ---
TLC to right IJ removed. Continuous O2 and HR monitoring. O2 sats remained 98% on RA, HR in the 80s. Patient tolerated well. Occlusive dsg applied. 20 in the LAC removed, no longger working. 20 in the RAC working. Botello catheter removed, female external catheter placed. DTV around midnight. Report given to IMC RN. Patient transferred to the floor. Patient's daughter Stormy notified of transfer.
[2021-04-11] VITALS (7 sets, daily range): BP systolic 132–157; BP diastolic 72–97; PULSE 76–138; RESP 18–20; TEMP 36.2–37.2; O2SAT 9–98; BMI 35.7
[2021-04-11] MEDS: Levothyroxine Sodium 50 MCG TABLET PO (05:24)
[2021-04-11 07:55] LABS: MANUAL DIFF FLAG NO
[2021-04-11 08:00] LABS: Basophils Percent Auto 0.2 % (0-2); Eosinophils Absolute Auto 0.1 X10*3/uL (0.0-0.4); Hematocrit 26.5 % (37.0-47.0); Hemoglobin 8.8 g/dl (12.0-16.0); Imm Gran Abs Auto 0.05 X10*3/uL (0.00-0.03); Imm Gran Pct Auto 0.5 % (0.0-0.4); Lymphocytes Absolute Auto 1.2 X10*3/uL (1.2-4.9); Lymphocytes Percent Auto 12.9 % (20-40); Mean Corpuscular HGB Conc 33.2 g/dl (31.0-35.0); Mean Corpuscular Hemoglobin 33.5 pg (27.0-33.0); Mean Corpuscular Volume 100.8 fL (80.0-98.0); Mean Platelet Volume 11.4 fL (9.4-12.3); Monocytes Absolute Auto 1.1 X10*3/uL (0.1-1.2); NRBC Pct Auto 0.3 /100WBC (0.0-0.2); Neutrophils Absolute Auto 6.7 x10*3/uL (2.0-8.3); Neutrophils Percent Auto 73.4 % (45-73); Platelet Count 224 X10*3/uL (160-400); Red Blood Count 2.63 X10*6/uL (4.20-5.50); Red Cell Distribution Width 14.1 % (11.0-16.0); White Blood Count 9.2 X10*3/uL (4.8-10.8)
[2021-04-11] MEDS: Amiodarone HCL 200 MG TABLET PO (08:01)
[2021-04-11] MEDS: DULoxetine HCl 30 MG CAPSULE.DR PO (08:01)
[2021-04-11 08:25] LABS: Alanine Aminotransferase 13 U/L (0-31); Albumin Level 3.4 g/dL (3.5-5.0); Alkaline Phosphatase 41 U/L (39-117); Anion Gap 12 (12-20); Aspartate Amino Transferase 15 U/L (5-31); Blood Urea Nitrogen 20 mg/dL (9-16); Calcium 8.7 mg/dL (8.4-10.2); Carbon Dioxide 22 mmol/L (22-29); Chloride 109 mmol/L (96-108); Creatinine Clr Calc Pharmacy 38.6; Estimated Glomerular Filt Rate 46; Glucose Random 112 mg/dL (60-115); Magnesium 1.9 mg/dL (1.6-2.6); Potassium 3.5 mmol/L (3.3-5.1); Sodium 139 mmol/L (135-145); Total Protein 5.2 g/dL (6.5-8.0)
[2021-04-11 08:31] LABS: Phosphorus 2.1 mg/dL (2.7-4.5)
[2021-04-11 08:51] LABS: Cholesterol 178 mg/dL; HDL Cholesterol 32 mg/dL; LDL Cholesterol Calculated 111 mg/dl; Triglycerides 177 mg/dL
--- NOTE | 2021-04-11 09:17 | PM.NEUROCN ---
History of Present Illness Data of Consult Service Date: 04/11/21 Primary Care Provider: Unknown Physician HPI Reason for consult: Stroke 85-year-old female with past medical history of aortic stenosis,? atrial fibrillation ( on Eliquis)? hypertension,? chronic kidney disease stage III,CAD s/p MICHAEL, congestive heart failure,? hypothyroidism,? orthostatic tremors, and? multiple falls at home presented to? emergency department? after? sustaining a? witnessed fall at home on 04/08/21. she was being treated for a leg hematoma. Yesterday she was noted to have sudden onset of left-sided weakness. Stroke protocol was initiated but she was not considered a candidate for intravenous tPA treatment because of hematoma related to anticoagulation and falling, and her underlying significant medical conditions barring her from having treatment with intra-arterial tPA or intra-arterial manipulations. Review of Systems Review of Systems: No recent cold or flu-like illness PMFSH Past Medical History Medical History Atrial fibrillation CHF (congestive heart failure) COPD (chronic obstructive pulmonary disease) High cholesterol HTN (hypertension) Hypothyroid Osteoporosis Social History Social History Household Members: Family Unable to assess alcohol history related to: Unable to respond Patient Tobacco Use Status: Former Tobacco user Use of substances other than those prescribed or required for medical reasons: Unable to respond Currently Displaying Signs/Symptoms of Drug Intoxication Withdrawal: No Advance Directives: No Advance Directives Information Provided: Yes Do you have thoughts of harming others: None Do you have a plan to hurt others: No Plan Recently lost weight without trying: Unsure Nutrition Risks: No Nutritional Risk Patient : No : No Poor oral hygiene: No service: No Current occupational status: retired Meds Allergies Allergy/AdvReac Type Severity Reaction Status Date / Time Penicillins Allergy Mild RASH Verified 04/08/21 15:30 [id number] Reductase Allergy Unknown MUSCLE Verified 04/08/21 15:30 Inhibitor ACHES AND [[id number]-[id number] Reductase STIFFNESS Inhibitor] Sulfa (Sulfonamide Allergy Unknown RASH Verified 04/08/21 15:30 Antibiotics) Active Medications: Current Medications Acetaminophen (Acetaminophen 325 Mg Tablet) 650 mg PO Q6H PRN PRN Reason: Pain, Moderate (Pain Scale 4-6 Last Admin: 12/29/21 04:35 Dose: 650 mg Documented by: Amiodarone HCl (Amiodarone Hcl 200 Mg Tablet) 200 mg PO DAILY [facility] Last Admin: 04/11/21 08:01 Dose: 200 mg Documented by: Duloxetine HCl (Duloxetine Hcl 30 Mg Capsule.Dr) 30 mg PO BID [facility] Last Admin: 04/11/21 08:01 Dose: 30 mg Documented by: Levothyroxine Sodium (Levothyroxine Sodium 50 Mcg Tablet) 50 mcg PO DAILY@0600 [facility] Last Admin: 04/11/21 05:24 Dose: 50 mcg Documented by: Metoprolol Succinate (Metoprolol Succinate Er 50 Mg Tab.Er.24h) 50 mg PO DAILY [facility]; Protocol Pharmacy Consult (Consult Rx Perform Med Rec) 1 each MISCELLANE ONCE PRN PRN Reason: Consult order Home Medications Medication Instructions Recorded Confirmed Last Taken Type apixaban 5 mg tablet (Eliquis) 5 mg PO BID 04/08/21 04/08/21 04/08/21 History calcium citrate 200 mg 2 tab PO BEDTIME 04/08/21 04/08/21 04/07/21 History calcium-vitamin D3 6.25 mcg (250 unit) tablet clopidogrel 75 mg tablet 1 tab PO DAILY 04/08/21 04/08/21 04/08/21 History duloxetine 30 mg capsule,delayed 1 cap PO BID 04/08/21 04/08/21 04/08/21 History release ezetimibe 10 mg tablet 1 tab PO DAILY 04/08/21 04/08/21 04/08/21 History fluticasone fur. 100 mcg-umeclid 1 puff INHALATION DAILY 04/08/21 04/08/21 04/08/21 History 62.5 mcg-vilant 25 mcg inhalat.powder (Trelegy Ellipta) furosemide 40 mg tablet 1 tab PO DAILY 04/08/21 04/08/21 04/08/21 History icosapent ethyl 1 gram capsule 2 cap PO BID 04/08/21 04/08/21 04/08/21 History (Vascepa) levothyroxine 50 mcg tablet 1 tab PO DAILY 04/08/21 04/08/21 04/08/21 History metoprolol succinate 50 mg 1 tab PO DAILY 04/08/21 04/08/21 04/08/21 History tablet,extended release 24 hr potassium chloride 10 mEq 40 meq PO DAILY 04/08/21 04/08/21 04/08/21 History tablet,extended release(part/cryst) (Klor-Con M) Physical Exam Vital Signs: Vital Signs: Last Vital Signs Temp 98.8 F 04/11/21 07:51 Pulse 138 H 04/11/21 08:01 Resp 19 04/11/21 07:51 BP 140/78 H 04/11/21 08:01 Pulse Ox 93 04/11/21 07:51 Oxygen Flow Rate 4 04/09/21 15:08 BMI result Body Mass Index 35.7 Neuro: Other: quite drowsy but able to open eyes and make an eye contact. She was following one-step commands but did not make it communication or conversation. There was moderate left hemiparesis with face and arm more than leg. She did not move her hand or fingers. Left plantar was extensor. Visual dorsey were difficult to determine. Results Labs CBC & Chem 7: 04/11/21 06:53 04/11/21 06:53 Labs: Short CBC 04/10/21 04/11/21 Range/Units 12:45 06:53 WBC 9.3 9.2 (4.8-10.8) X10*3/uL Hgb 8.6 L 8.8 L (12.0-16.0) g/dl Hct 26.2 L 26.5 L (37.0-47.0) % Plt Count 224 224 (160-400) X10*3/uL BMP 04/11/21 06:53 Sodium 139 Potassium 3.5 Chloride 109 H Carbon Dioxide 22 BUN 20 H Creatinine 1.14 Calcium 8.7 Liver Function 04/11/21 Range/Units 06:53 Total Bilirubin 1.0 (0.0-1.0) mg/dL AST 15 (5-31) U/L ALT 13 (0-31) U/L Alkaline Phosphatase 41 (39-117) U/L Albumin 3.4 L (3.5-5.0) g/dL Extensive hypodense signal abnormalities in deep white matter on both sides with moderate diffuse cerebral atrophy. Microbiology Microbiology Results: Microbiology 04/09/21 16:22 Blood - Venous Blood Culture - Preliminary No growth after 24 hours. 04/09/21 13:32 Blood - Venous Blood Culture - Preliminary No growth after 24 hours. Assessment and Plan (1) Left hemiparesis: Status: Acute 85 years old woman with new onset of left hemiparesis with underlying extensive ischemic vascular disease of brain and significant diffuse atrophy. Recently she had a fall and leg hematoma restricted in our ability to treat her with intravenous tPA. Her baseline medical status also prevented more aggressive intra-arterial treatment. Mainstay of management is education of the family PT OT and if possible continuation of anticoagulation for stroke prevention. On the other hand she has extensive vascular disease in brain which typically effects patient's ability to ambulate or walk putting them at risk for fall. Benefit of anticoagulation and fall risk should be weighed in and anticoagulation should be considered if she was in safe environment. Procedures Date of Service Date of Service: 04/11/21
[2021-04-11] MEDS: Metoprolol Succinate ER 50 MG TAB.ER.24H PO (10:17)
--- NOTE | 2021-04-11 11:53 | P.PNCA_ITS ---
Subjective Subjective Date of Service: 04/11/21 Interval history: Left hemiparesis. saying SOB all the time. Tele Afib with RVR. Physical Exam Vital Signs: Last Vital Signs Temp 98.9 F 04/11/21 11:06 Pulse 112 H 04/11/21 11:06 Resp 18 04/11/21 11:06 BP 132/72 04/11/21 11:06 Pulse Ox 96 04/11/21 11:06 Oxygen Flow Rate 4 04/09/21 15:08 BMI result Body Mass Index 35.7 GENERAL APPEARANCE: in no acute distress. left sided facial droop. NECK: no carotid bruit, no jugular venous distention. SKIN: no suspicious lesions, warm and dry. HEART: no murmurs, irregular rate and rhythm. tachycardia. LUNGS: clear to auscultation bilaterally. ABDOMEN: soft, nontender. EXTREMITIES: no edema. left hip area - hematoma and bruising. PERIPHERAL PULSES: equal. NEUROLOGIC: left sided flaccid paralysis. Objective Labs and Meds Result diagrams: 04/11/21 06:53 04/11/21 06:53 Lab results: Laboratory Results - last 24 hr 04/10/21 04/11/21 04/11/21 12:45 06:53 06:53 WBC 9.3 9.2 RBC 2.57 L 2.63 L Hgb 8.6 L 8.8 L Hct 26.2 L 26.5 L MCV 101.9 H 100.8 H MCH 33.5 H 33.5 H MCHC 32.8 33.2 RDW 14.1 14.1 Plt Count 224 224 MPV 10.7 11.4 Immature Gran % (Auto) 0.9 H 0.5 H Neut % (Auto) 72.9 73.4 H Lymph % (Auto) 12.4 L 12.9 L [place] % (Auto) 12.9 H 12.0 H Eos % (Auto) 0.5 1.0 Baso % (Auto) 0.4 0.2 Lymph # (Auto) 1.2 1.2 [place] # (Auto) 1.2 1.1 Eos # (Auto) 0.1 0.1 Baso # (Auto) 0.0 0.0 Abs Immat Gran (auto) 0.08 H 0.05 H Absolute Neuts (auto) 6.8 6.7 Absolute Nucleated RBC 0.020 H 0.030 H Nucleated RBC % (auto) 0.2 0.3 H Sodium 139 Potassium 3.5 Chloride 109 H Carbon Dioxide 22 Anion Gap 12 BUN 20 H Creatinine 1.14 Estim Creat Clear Calc 38.6 Estimated GFR 46 Random Glucose 112 Calcium 8.7 Phosphorus 2.1 L Magnesium 1.9 Total Bilirubin 1.0 AST 15 ALT 13 Alkaline Phosphatase 41 Total Protein 5.2 L Albumin 3.4 L Triglycerides 177 Cholesterol 178 LDL Cholesterol, Calc 111 HDL Cholesterol 32 TSH 0.40 Imaging Radiologist's impression: Impressions Head CT 04/10/21 16:09 IMPRESSION: No acute intracranial pathology. Diffuse microangiopathy with atrophy. This critical result was discussed with Dr. Mcclain at 1624 hours on April 10, 2021. It was ascertained that the content and urgency of the report was understood at the time of direct communication. Progress Note: A&P Assessment and plan (1) Left hemiparesis: Status: Acute (2) Traumatic hematoma of left thigh: Status: Acute (3) Atrial fibrillation with rapid ventricular response: Status: Acute Assessment and Plan: 85 female with frequent falls. Presented with fall and had left thigh/hip hematoma and hypovolemic shock. Improved BP. Unfortunately had left sided stroke. Afib with RVR. Resume BB. Add digoxin load 250 mcg x 2, 6 hours apart. Transfuse 1 unit of blood. If she will be bedridden due to the stroke and does not worsen neurologically then can consider anticoagulation again. I think we will have to wait and see how her clinical condition evolves. Fall Risk Details Current Medications: Current Medications Acetaminophen (Acetaminophen 325 Mg Tablet) 650 mg PO Q6H PRN PRN Reason: Pain, Moderate (Pain Scale 4-6 Last Admin: 04/10/21 04:35 Dose: 650 mg Documented by: Amiodarone HCl (Amiodarone Hcl 200 Mg Tablet) 200 mg PO DAILY [facility] Last Admin: 04/11/21 08:01 Dose: 200 mg Documented by: Duloxetine HCl (Duloxetine Hcl 30 Mg Capsule.) 30 mg PO BID [facility] Last Admin: 04/11/21 08:01 Dose: 30 mg Documented by: Levothyroxine Sodium (Levothyroxine Sodium 50 Mcg Tablet) 50 mcg PO DAILY@0600 [facility] Last Admin: 04/11/21 05:24 Dose: 50 mcg Documented by: Metoprolol Succinate (Metoprolol Succinate Er 50 Mg Tab.Er.24h) 50 mg PO DAILY [facility]; Protocol Last Admin: 04/11/21 10:17 Dose: 50 mg Documented by: Pharmacy Consult (Consult Rx Perform Med Rec) 1 each MISCELLANE ONCE PRN PRN Reason: Consult order Time Spent With Patient Time: Total time spent is greater than 50% in coordination of care (as documented) at patient's floor/unit and/or counseling patient: Time with patient: 15 - 24 minutes Progress Note: Quality Stroke Does the patient have a stroke diagnosis?: No Procedures Date of Service Date of Service: 04/11/21
[2021-04-11] MEDS: Digoxin 0.25 MG TABLET PO ×2 (12:51→18:06)
--- NOTE | 2021-04-11 17:08 | HO.PM.IMPN ---
Subjective Subjective Date of Service: 04/11/21 Interval History: seen and examined this morning follow up for afib rvr, likely stroke confused but able to answer some simple questions not able to give much history Review of Systems Review of Systems: Yes Unobtainable due to mental condition Physical Exam Vital Signs: Vital Signs: Last Vital Signs Temp 97.2 F 04/11/21 16:00 Pulse 94 04/11/21 16:00 Resp 18 04/11/21 16:00 BP 157/86 H 04/11/21 16:00 Pulse Ox 93 04/11/21 16:00 Oxygen Flow Rate 4 04/09/21 15:08 BMI result Body Mass Index 35.7 Const: General: comfortable, alert and awake Resp: Effort & Inspection: normal respiratory effort and no respiratory distress Cardio: Rate: tachycardic Rhythm: abnormal rhythm irregularly irregular Neuro: Other: left facial droop, unable to move left arm; able to wiggle toes left foot, able to move right upper and lower extremity able to answer some basic questions, follow some basic commands Objective Data Active Medications Acetaminophen (Acetaminophen 325 Mg Tablet) 650 mg PO Q6H PRN PRN Reason: Pain, Moderate (Pain Scale 4-6 Last Admin: 04/10/21 04:35 Dose: 650 mg Documented by: CYJUSTYNA Amiodarone HCl (Amiodarone Hcl 200 Mg Tablet) 200 mg PO DAILY [facility] Last Admin: 04/11/21 08:01 Dose: 200 mg Documented by: PETTY Digoxin (Digoxin 0.25 Mg Tablet) 0.25 mg PO Q6H [facility] Stop: 04/11/21 19:01 Last Admin: 04/11/21 12:51 Dose: 0.25 mg Documented by: PETTY Duloxetine HCl (Duloxetine Hcl 30 Mg Capsule.Dr) 30 mg PO BID [facility] Last Admin: 04/11/21 08:01 Dose: 30 mg Documented by: PETTY Levothyroxine Sodium (Levothyroxine Sodium 50 Mcg Tablet) 50 mcg PO DAILY@0600 [facility] Last Admin: 04/11/21 05:24 Dose: 50 mcg Documented by: COLLEEN Metoprolol Succinate (Metoprolol Succinate Er 50 Mg Tab.Er.24h) 50 mg PO DAILY [facility]; Protocol Last Admin: 04/11/21 10:17 Dose: 50 mg Documented by: PETTY Pharmacy Consult (Consult Rx Perform Med Rec) 1 each MISCELLANE ONCE PRN PRN Reason: Consult order Labs CBC & Chem 7: 04/11/21 06:53 04/11/21 06:53 Labs: Laboratory Results - last 24 hr 04/11/21 04/11/21 06:53 06:53 MCV 100.8 H MCH 33.5 H MCHC 33.2 RDW 14.1 Plt Count 224 MPV 11.4 Immature Gran % (Auto) 0.5 H Neut % (Auto) 73.4 H Lymph % (Auto) 12.9 L [place] % (Auto) 12.0 H Eos % (Auto) 1.0 Baso % (Auto) 0.2 Lymph # (Auto) 1.2 [place] # (Auto) 1.1 Eos # (Auto) 0.1 Baso # (Auto) 0.0 Abs Immat Gran (auto) 0.05 H Absolute Neuts (auto) 6.7 Absolute Nucleated RBC 0.030 H Nucleated RBC % (auto) 0.3 H Anion Gap 12 Estim Creat Clear Calc 38.6 Estimated GFR 46 Random Glucose 112 Calcium 8.7 Phosphorus 2.1 L Magnesium 1.9 Total Bilirubin 1.0 AST 15 ALT 13 Alkaline Phosphatase 41 Total Protein 5.2 L Albumin 3.4 L Triglycerides 177 Cholesterol 178 LDL Cholesterol, Calc 111 HDL Cholesterol 32 TSH 0.40 Microbiology Microbiology Results: Microbiology 04/09/21 13:32 Blood Culture - Preliminary Blood - Venous No growth after 48 hours. 04/09/21 16:22 Blood Culture - Preliminary Blood - Venous No growth after 24 hours. Assessment and Plan (1) Left hemiparesis: Status: Acute (2) Traumatic hematoma of left thigh: Status: Acute Assessment and Plan: This is an 85-year-old female with past medical history of aortic stenosis,? atrial fibrillation ( on Eliquis)? hypertension,? chronic kidney disease stage III,CAD s/p MICHAEL, congestive heart failure,? hypothyroidism who was originally brought to the ED after sustaining mechanical fall found to have left thigh/hip hematoma and afib rvr with hypotension admitted to the ICU for hypovolemic shock and pressor support who developed left side weakness and left facial droop downgraded yesterday acute stroke Patient with acute development of left upper extremity weakness and facial droop at approximately 3:30 p.m (04/10)? CT head obtained -? no evidence of intracranial hemorrhage.? Patient is not a tPA candidate secondary to large subacute thigh hematoma with drop in hemoglobin and not area retrieval procedure candidate secondary to underlying code status seen by neurology, no MRI necessary seems to be worsening this evening, will obtain stat brain CT to rule out hemorragic conversion PT/OT/speech eval hold asa until repeat CT done seen by speech - recommend NPO afib with RVR initially hypotensive and BB stopped in ICU. started on amio HR 130s this morning resume BB dig x 2 doses cardiology following may not be good candidate for AC going forward given frequent falls, discussed with family thigh hematoma H/H stable follow CBC Hypothyroidism Continue Synthroid when able to take po code status dnr/dni attending - dr. gilman HCP and daughter. called earlier today and he requested for me to call Stormy his daughter [phone] Quality Stroke Does the patient have a stroke diagnosis?: No VTE Prior VTE?: No VTE Risk Level:: Medical - moderate - high VTE Device Contraindication: Treatment Not Indicated VTE Drug Contraindication: N/A - Med Ordered
--- NOTE | 2021-04-11 17:34 | MHC.SL.SWA ---
Speech Pathologist Impression: Oralpharyngeal Dysphagia Risk of Aspiration Due to: Lethargy Neurological Condition Reduced Cognition Dysphasia Diet Status: No Change Liquid Consistency and Strategies for Safe Swallow: Liquid Intake Recommendation: NPO Liquid Intake Strategies: Solid Food Consistency: Dietary Recommendations: NPO Additional Modifications to Solid Foods: Oral Medication Intake: NPO Compensatory Strategies and Precautions to be Taken for Safe Swallow: Supervision While Eating and Drinking for Safe Swallow: PO with CLINICAL TRIAL ASSOCIATE Foods to Avoid: P Swallowing Recommended Treatments: Oral Motor Exercises Recommendation for Speech: Inpatient Speech Therapy Comment: Pt presents with significant decline of function as observed from AM/PM. Pt now with moderate/severe Oralpharyngeal Dysphagia, w/ marked unilateral L tongue flaccidity, L Facial droop, marked dysarthria, decreased overall responsiveness, difficulty initiating oral movement to initiate swallow. Recommend continue NPO at this time, CLINICAL TRIAL ASSOCIATE will re-assess AM. MD, Nursing, Knot Cutter made aware of recommendation and observed decline of function by secure text. PO with CLINICAL TRIAL ASSOCIATE only at this time. Frequency/Duration: CLINICAL TRIAL ASSOCIATE to follow, M-F while Pt admitted to [facility] [place] Date Range for Service Req: Timeline to reassess: Return To Factory Clerk Clinican/Clinical Fellow: No Supervisory Statement: I have reviewed and agree with the student/clinical fellow's documentation: N/A Speech Language Pathologist: Dai Nolasco M.A., [facility]-CLINICAL TRIAL ASSOCIATE
[2021-04-12] VITALS (7 sets, daily range): BP systolic 134–177; BP diastolic 69–90; PULSE 79–101; RESP 18–20; TEMP 36.1–36.6; O2SAT 93–98; BMI 32.2
[2021-04-12 08:38] LABS: MANUAL DIFF FLAG NO
[2021-04-12 08:39] LABS: Basophils Percent Auto 0.4 % (0-2); Eosinophils Absolute Auto 0.2 X10*3/uL (0.0-0.4); Eosinophils Percent Auto 1.9 % (0-4); Hematocrit 30.9 % (37.0-47.0); Hemoglobin 10.1 g/dl (12.0-16.0); Imm Gran Abs Auto 0.05 X10*3/uL (0.00-0.03); Imm Gran Pct Auto 0.6 % (0.0-0.4); Lymphocytes Absolute Auto 1.3 X10*3/uL (1.2-4.9); Lymphocytes Percent Auto 16.4 % (20-40); Mean Corpuscular HGB Conc 32.7 g/dl (31.0-35.0); Mean Corpuscular Hemoglobin 33.2 pg (27.0-33.0); Mean Corpuscular Volume 101.6 fL (80.0-98.0); Mean Platelet Volume 10.6 fL (9.4-12.3); Monocytes Absolute Auto 0.9 X10*3/uL (0.1-1.2); Monocytes Percent Auto 11.8 % (2-11); NRBC Pct Auto 0.4 /100WBC (0.0-0.2); Neutrophils Absolute Auto 5.5 x10*3/uL (2.0-8.3); Neutrophils Percent Auto 68.9 % (45-73); Platelet Count 245 X10*3/uL (160-400); Red Blood Count 3.04 X10*6/uL (4.20-5.50); Red Cell Distribution Width 14.1 % (11.0-16.0)
[2021-04-12 09:01] LABS: Anion Gap 11 (12-20); Blood Urea Nitrogen 16 mg/dL (9-16); Calcium 8.9 mg/dL (8.4-10.2); Carbon Dioxide 25 mmol/L (22-29); Chloride 109 mmol/L (96-108); Creatinine Clr Calc Pharmacy 44.4; Estimated Glomerular Filt Rate 57; Glucose Random 93 mg/dL (60-115); Potassium 3.3 mmol/L (3.3-5.1); Sodium 142 mmol/L (135-145)
[2021-04-12] MEDS: Metoprolol Succinate ER 50 MG TAB.ER.24H PO (09:43)
[2021-04-12] MEDS: Amiodarone HCL 200 MG TABLET PO (09:44)
--- NOTE | 2021-04-12 11:23 | P.PNIM_ITS ---
Subjective Subjective Date of Service: 04/12/21 Interval History: seen and examined this morning follow up for afib with rvr and acute stroke seems less confused this morning still with left hemiparesis Review of Systems Review of Systems: Yes all other systems are reviewed and are negative Constitutional Constitutional: Denies chills and Denies fever(s) Cardiovascular Cardiovascular: Denies chest pain Respiratory Respiratory: Denies cough Gastrointestinal Gastrointestinal: Denies abdominal pain Physical Exam Verdana 4l Vital Signs: Verdana 4d Verdana 4d Vital Signs: Verdana 4d Verdana 4Bd Last Vital Signs Verdana 4d Butt Maker New 4d Butt Maker New 4d Temp 97.8 F 04/12/21 08:00 Butt Maker New 4d Pulse 96 04/12/21 08:00 Butt Maker NewNew 4d Resp 20 04/12/21 08:00 BP 173/85 H 04/12/21 08:00 Pulse Ox 94 04/12/21 08:00 Oxygen Flow Rate 4 04/09/21 15:08 BMI result Body Mass Index 32.2 Const: General: comfortable, alert and awake Resp: Effort & Inspection: normal respiratory effort and no respiratory distress Cardio: Rate: regular rate Rhythm: abnormal rhythm irregularly irregular Skin: Other: left hip/thigh brusing Neuro: Other: left facial droop, unable to move left arm; able to wiggle toes left foot, able to move right upper and lower extremity Objective Data Active Medications Acetaminophen (Acetaminophen 325 Mg Tablet) 650 mg PO Q6H PRN PRN Reason: Pain, Moderate (Pain Scale 4-6 Last Admin: 04/10/21 04:35 Dose: 650 mg Documented by: MARLIN Amiodarone HCl (Amiodarone Hcl 200 Mg Tablet) 200 mg PO DAILY [facility] Last Admin: 04/12/21 09:44 Dose: 200 mg Documented by: PETTY Duloxetine HCl (Duloxetine Hcl 30 Mg Capsule.Dr) 30 mg PO BID [facility] Last Admin: 04/12/21 09:50 Dose: Not Given Documented by: PETTY Non-Admin Reason: NPO Levothyroxine Sodium (Levothyroxine Sodium 50 Mcg Tablet) 50 mcg PO DAILY@0600 [facility] Last Admin: 04/12/21 05:07 Dose: Not Given Documented by: JOSEPH Non-Admin Reason: NPO Metoprolol Succinate (Metoprolol Succinate Er 50 Mg Tab.Er.24h) 50 mg PO DAILY [facility]; Protocol Last Admin: 04/12/21 09:43 Dose: 50 mg Documented by: PETTY Pharmacy Consult (Consult Rx Perform Med Rec) 1 each MISCELLANE ONCE PRN PRN Reason: Consult order Labs CBC & Chem 7: 04/12/21 08:24 04/12/21 08:24 Labs: Laboratory Results - last 24 hr 04/12/21 04/12/21 08:24 08:24 MCV 101.6 H MCH 33.2 H MCHC 32.7 RDW 14.1 Plt Count 245 MPV 10.6 Immature Gran % (Auto) 0.6 H Neut % (Auto) 68.9 Lymph % (Auto) 16.[address] [place] % (Auto) 11.8 H Eos % (Auto) 1.9 Baso % (Auto) 0.4 Lymph # (Auto) 1.3 [place] # (Auto) 0.9 Eos # (Auto) 0.2 Baso # (Auto) 0.0 Abs Immat Gran (auto) 0.05 H Absolute Neuts (auto) 5.5 Absolute Nucleated RBC 0.030 H Nucleated RBC % (auto) 0.4 H Anion Gap 11 L Estim Creat Clear Calc 44.4 Estimated GFR 57 Random Glucose 93 Calcium 8.9 Microbiology Microbiology Results: Microbiology 04/09/21 16:22 Blood Culture - Preliminary Blood - Venous No growth after 48 hours. 04/09/21 13:32 Blood Culture - Preliminary Blood - Venous No growth after 48 hours. Assessment and Plan (1) Left hemiparesis: Status: Acute (2) Traumatic hematoma of left thigh: Status: Acute (3) TABBY (acute kidney injury): Status: Acute (4) Atrial fibrillation with rapid ventricular response: Status: Acute Assessment and Plan: This is an 85-year-old female with past medical history of aortic stenosis,? atrial fibrillation ( on Eliquis)? hypertension,? chronic kidney disease stage III,CAD s/p MICHAEL, congestive heart failure,? hypothyroidism who was originally brought to the ED after sustaining mechanical fall found to have left thigh/hip hematoma and afib rvr with hypotension admitted to the ICU for hypovolemic shock and pressor support who developed left side weakness and left facial droop downgraded yesterday acute stroke Patient with acute development of left upper extremity weakness and facial droop on 04/10. CT head obtained -? no evidence of intracranial hemorrhage.? Patient not a tPA candidate secondary to large subacute thigh hematoma with drop in hemoglobin and not a retrieval procedure candidate secondary to underlying code status seen by neurology, no MRI necessary repeat brain CT from 04/12 showing focal hypodensity in right precentral gyrus seen by speech, rec NPO seen by PT, rec STR with possible transition to LTC unable to take statin due to npo status, LDL 111 no asa at this time due to anemia/large hematoma afib with RVR initially hypotensive and BB stopped in ICU. started on amiodarone HR under better control continue metoprolol, amiodarone dig x 2 doses cardiology following may not be good candidate for AC going forward given frequent falls, discussed with family thigh hematoma H/H stable follow CBC Hypothyroidism Continue Synthroid when able to take po code status dnr/dni attending - dr. bernard HCP and daughter Stormy [phone], pt requested daughter Stormy be primary contact dispo- likely STR when medically ready Quality Stroke Does the patient have a stroke diagnosis?: No VTE Prior VTE?: No VTE Risk Level:: Medical - moderate - high VTE Device Contraindication: Treatment Not Indicated VTE Drug Contraindication: N/A - Med Ordered
--- NOTE | 2021-04-12 13:13 | MHC.SL.SWA ---
Speech Pathologist Impression: Oralpharyngeal Dysphagia Risk of Aspiration Due to: Lethargy Neurological Condition Reduced Cognition Dysphasia Diet Status: No Change Liquid Consistency and Strategies for Safe Swallow: Liquid Intake Recommendation: [place] Thick Liquid Intake Strategies: Solid Food Consistency: Dietary Recommendations: Pureed (NDD1) Additional Modifications to Solid Foods: Avoid very sticky textures. Oral Medication Intake: Crushed with Puree Compensatory Strategies and Precautions to be Taken for Safe Swallow: Sitting Upright (90 deg) Chin Tuck Liquids from Spoon Alternate Liquids/Solids Oral Check Supervision While Eating and Drinking for Safe Swallow: Total Supervision (1:1) Foods to Avoid: Avoid very sticky textures Swallowing Recommended Treatments: Compens. Strategy Educat. Recommendation for Speech: Inpatient Speech Therapy Comment: Pt presents w/oral pharyngeal dysphagia w/ delayed swallow. Recommend UPGRADE diet to PUREE (NDD1) w/ HONEY THICK liquids, pills CRUSHED IN PUREE. Pt will need close 1-1 Supervision during meals and should not be given food or meds by puree if lethargic. Meal supervision should closely monitor for clinical signs of aspiration, pocketing/oral residual of puree. Alternate bites of food w/liquids. Liquids by TSP only. Diet recommendation upgrade communicated to MD, Nursing, Crop Setting Out Machine Operator, Dietary by secure text. Frequency/Duration: IT INFRASTRUCTURE CONSULTANT to follow, M-F while Pt admitted to [facility] [place] [place] Date Range for Service Req: Timeline to reassess: Rf Test Engineer Clinican/Clinical Fellow: No Supervisory Statement: I have reviewed and agree with the student/clinical fellow's documentation: N/A Speech Language Pathologist: Dai Nolasco M.A., CCC-IT INFRASTRUCTURE CONSULTANT
--- NOTE | 2021-04-12 15:32 | MHC.CM.PN ---
MITZY SPOKE TO PTS DAUGHTER, JAMEL [phone]. SHE REPORTS THEY ARE HOPING THE PT WILL BE ABLE TO GO TO STR AT DC THEY ARE REQUESTING REFERRALS TO [facility], [facility] AND [facility] FAC[facility]IES REFERRALS PLACED AWAITING RESPONSES PER MD, PT SHOULD BE READY TO DC THIS WEEKEND
[2021-04-13] VITALS (8 sets, daily range): BP systolic 142–176; BP diastolic 65–98; PULSE 75–97; RESP 18–20; TEMP 36–37.2; O2SAT 92–98; BMI 32.1
[2021-04-13 07:09] LABS: MANUAL DIFF FLAG NO
[2021-04-13 07:21] LABS: Basophils Percent Auto 0.3 % (0-2); Eosinophils Absolute Auto 0.1 X10*3/uL (0.0-0.4); Eosinophils Percent Auto 1.4 % (0-4); Hematocrit 32.2 % (37.0-47.0); Hemoglobin 10.6 g/dl (12.0-16.0); Imm Gran Abs Auto 0.05 X10*3/uL (0.00-0.03); Imm Gran Pct Auto 0.6 % (0.0-0.4); Lymphocytes Percent Auto 13.2 % (20-40); Mean Corpuscular HGB Conc 32.9 g/dl (31.0-35.0); Mean Corpuscular Hemoglobin 33.2 pg (27.0-33.0); Mean Corpuscular Volume 100.9 fL (80.0-98.0); Mean Platelet Volume 10.6 fL (9.4-12.3); Monocytes Absolute Auto 0.9 X10*3/uL (0.1-1.2); Monocytes Percent Auto 10.9 % (2-11); NRBC Pct Auto 0.3 /100WBC (0.0-0.2); Neutrophils Absolute Auto 5.8 x10*3/uL (2.0-8.3); Neutrophils Percent Auto 73.6 % (45-73); Platelet Count 285 X10*3/uL (160-400); Red Blood Count 3.19 X10*6/uL (4.20-5.50); Red Cell Distribution Width 14.3 % (11.0-16.0); White Blood Count 7.9 X10*3/uL (4.8-10.8)
[2021-04-13 07:51] LABS: Anion Gap 12 (12-20); Blood Urea Nitrogen 16 mg/dL (9-16); Calcium 8.5 mg/dL (8.4-10.2); Carbon Dioxide 25 mmol/L (22-29); Chloride 107 mmol/L (96-108); Creatinine Clr Calc Pharmacy 47.9; Estimated Glomerular Filt Rate > 60; Glucose Random 100 mg/dL (60-115); Potassium 3.6 mmol/L (3.3-5.1); Sodium 140 mmol/L (135-145)
[2021-04-13] MEDS: Metoprolol Succinate ER 50 MG TAB.ER.24H PO (10:28)
[2021-04-13] MEDS: amLODIPine Besylate 2.5 MG TABLET PO (10:28)
--- NOTE | 2021-04-13 12:27 | P.PNIM_ITS ---
Subjective Subjective Date of Service: 04/13/21 Interval History: seen and examined this morning follow up for afib, hematoma, stroke sleepy this morning, but following commands and answering questions Review of Systems Review of Systems: Yes all other systems are reviewed and are negative Constitutional Constitutional: Denies chills and Denies fever(s) Cardiovascular Cardiovascular: Denies chest pain Respiratory Respiratory: Denies cough Gastrointestinal Gastrointestinal: Denies abdominal pain Physical Exam Verdana 4l Vital Signs: Verdana 4d Verdana 4d Vital Signs: Verdana 4d Verdana 4Bd Last Vital Signs Verdana 4d Promotions Officer New 4d Promotions Officer New 4d Temp 96.8 F 04/13/21 11:34 Promotions Officer New 4d Pulse 93 04/13/21 11:34 Promotions Officer NewNew 4d Resp 20 04/13/21 11:34 BP 156/82 H 04/13/21 11:34 Pulse Ox 95 04/13/21 11:34 Oxygen Flow Rate 4 04/09/21 15:08 BMI result Body Mass Index 32.1 Const: General: comfortable, no acute distress and lethargic Orientation/consciousness: lethargic Resp: Effort & Inspection: normal respiratory effort and no respiratory distress Cardio: Rate: regular rate Rhythm: abnormal rhythm irregularly irregular GI: Inspection: No distended Palpation (GI): Soft to palpation Skin: Other: left hip/thigh brusing Neuro: Other: left facial droop, unable to move left arm; able to wiggle toes left f oot, able to move right upper and lower extremity - no significant change Objective Data Active Medications Acetaminophen (Acetaminophen 325 Mg Tablet) 650 mg PO Q6H PRN PRN Reason: Pain, Moderate (Pain Scale 4-6 Last Admin: 04/10/21 04:35 Dose: 650 mg Documented by: MARLIN Amlodipine Besylate (Amlodipine Besylate 2.5 Mg Tablet) 2.5 mg PO DAILY [facility]; Protocol Last Admin: 04/13/21 10:28 Dose: 2.5 mg Documented by: JUMA Atorvastatin Calcium (Atorvastatin Calcium 20 Mg Tablet) 20 mg PO BEDTIME [facility] Digoxin (Digoxin 0.125 Mg Tablet) 0.125 mg PO Q2D [facility] Duloxetine HCl (Duloxetine Hcl 30 Mg Capsule.Dr) 30 mg PO BID [facility] Last Admin: 04/13/21 10:33 Dose: Not Given Documented by: JUMA Non-Admin Reason: cannot be crushed Levothyroxine Sodium (Levothyroxine Sodium 50 Mcg Tablet) 50 mcg PO DAILY@0600 [facility] Last Admin: 04/13/21 06:22 Dose: Not Given Documented by: LOUIS Non-Admin Reason: lethargic Metoprolol Succinate (Metoprolol Succinate Er 50 Mg Tab.Er.24h) 50 mg PO DAILY [facility]; Protocol Last Admin: 04/13/21 10:28 Dose: 50 mg Documented by: JUMA Pharmacy Consult (Consult Rx Perform Med Rec) 1 each MISCELLANE ONCE PRN PRN Reason: Consult order Labs CBC & Chem 7: 04/13/21 06:50 04/13/21 06:50 Labs: Laboratory Results - last 24 hr 04/13/21 04/13/21 06:50 06:50 MCV 100.9 H MCH 33.2 H MCHC 32.9 RDW 14.3 Plt Count 285 MPV 10.6 Immature Gran % (Auto) 0.6 H Neut % (Auto) 73.6 H Lymph % (Auto) 13.2 L [place] % (Auto) 10.9 Eos % (Auto) 1.4 Baso % (Auto) 0.3 Lymph # (Auto) 1.0 L [place] # (Auto) 0.9 Eos # (Auto) 0.1 Baso # (Auto) 0.0 Abs Immat Gran (auto) 0.05 H Absolute Neuts (auto) 5.8 Absolute Nucleated RBC 0.020 H Nucleated RBC % (auto) 0.3 H Anion Gap 12 Estim Creat Clear Calc 47.9 Estimated GFR > 60 Random Glucose 100 Calcium 8.5 Assessment and Plan (1) Traumatic hematoma of left thigh: Status: Acute (2) Left hemiparesis: Status: Acute (3) Atrial fibrillation with rapid ventricular response: Status: Acute (4) TABBY (acute kidney injury): Status: Acute Assessment and Plan: This is an 85-year-old female with past medical history of aortic stenosis,? atrial fibrillation ( on Eliquis)? hypertension,? chronic kidney disease stage III,CAD s/p MICHAEL, congestive heart failure,? hypothyroidism who was originally brought to the ED after sustaining mechanical fall found to have left thigh/hip hematoma and afib rvr with hypotension admitted to the ICU for hypovolemic shock and pressor support who developed left side weakness and left facial droop downgraded to the medical floor 04/10 acute stroke Patient with acute development of left upper extremity weakness and facial droop on 04/10. CT head obtained -? no evidence of intracranial hemorrhage.? Patient not a tPA candidate secondary to large subacute thigh hematoma with drop in hemoglobin and not a retrieval procedure candidate secondary to underlying code status seen by neurology, no MRI necessary repeat brain CT from 04/12 showing focal hypodensity in right precentral gyrus seen by speech, upgraded to pureed diet with strict aspiration precautions and assistance with feeding seen by PT, rec STR with possible transition to LTC LDL 111, pt listed allergy of muscle aches with statin, will start with low dose and see how she responds. if able to tolerate can uptitrate no asa at this time due to anemia/large hematoma afib with RVR initially hypotensive and BB stopped in ICU then started on amiodarone HR under better control continue metoprolol, digoxin amiodorone discontinued per cardiology rec cardiology following h/o frequent falls, making AC difficult. although given current hemiparesis, pt not likely to be ambulatory. given thigh hematoma will continue to hold ac for now, likely for 7-10 days thigh hematoma H/H stable follow CBC Hypothyroidism Continue Synthroid when able to take po code status dnr/dni attending - dr. bernard HCP and daughter Stormy [phone], pt requested daughter Stormy be primary contact dispo- likely STR when medically ready Quality Stroke Does the patient have a stroke diagnosis?: No VTE Prior VTE?: No VTE Risk Level:: Medical - moderate - high VTE Device Contraindication: Treatment Not Indicated VTE Drug Contraindication: N/A - Med Ordered
[2021-04-13] MEDS: Digoxin 0.125 MG TABLET PO (13:50)
[2021-04-13] MEDS: Acetaminophen 325 MG TABLET 650 MG PO (17:10)
[2021-04-13] MEDS: Atorvastatin Calcium 20 MG TABLET PO (20:05)
[2021-04-14] VITALS (9 sets, daily range): BP systolic 138–195; BP diastolic 64–95; PULSE 68–105; RESP 18–20; TEMP 36.1–36.8; O2SAT 95–99; BMI 32.1
[2021-04-14] MEDS: Lactated Ringers 1,000 ML 80 ML IVCONT (10:12)
[2021-04-14] MEDS: amLODIPine Besylate 2.5 MG TABLET PO ×2 (10:12→13:57)
[2021-04-14] MEDS: Metoprolol Succinate ER 50 MG TAB.ER.24H PO (10:12)
--- NOTE | 2021-04-14 13:19 | P.PNIM_ITS ---
Subjective Subjective Date of Service: 04/14/21 Interval History: seen and evaluated this morning follow up for stroke, afib still sleepy this morning, but still able to answer questions and following commands Review of Systems Review of Systems: Yes all other systems are reviewed and are negative Constitutional Constitutional: Denies chills and Denies fever(s) Cardiovascular Cardiovascular: Denies chest pain Respiratory Respiratory: Denies cough Gastrointestinal Gastrointestinal: Denies abdominal pain Physical Exam Vital Signs: Vital Signs: Last Vital Signs Temp 97.2 F 04/14/21 12:00 Pulse 89 04/14/21 12:00 Resp 18 04/14/21 12:00 BP 195/93 H 04/14/21 12:00 Pulse Ox 95 04/14/21 12:00 Oxygen Flow Rate 4 04/09/21 15:08 BMI result Body Mass Index 32.1 Const: General: comfortable, no acute distress and lethargic Orientation/consciousness: lethargic Resp: Effort & Inspection: normal respiratory effort and no respiratory distress Cardio: Rate: regular rate Rhythm: abnormal rhythm irregularly irregular GI: Inspection: No distended Palpation (GI): Soft to palpation Skin: Other: left hip/thigh brusing Neuro: Other: left facial droop, unable to move left arm; able to wiggle toes left foot, able to move right upper and lower extremity - no significant change Objective Data Active Medications Acetaminophen (Acetaminophen 325 Mg Tablet) 650 mg PO Q6H PRN PRN Reason: Pain, Moderate (Pain Scale 4-6 Last Admin: 04/13/21 17:10 Dose: 650 mg Documented by: JUMA Amlodipine Besylate (Amlodipine Besylate 5 Mg Tablet) 5 mg PO DAILY [facility]; Protocol Amlodipine Besylate (Amlodipine Besylate 2.5 Mg Tablet) 2.5 mg PO ONCE ONE; Protocol Stop: 04/14/21 13:16 Atorvastatin Calcium (Atorvastatin Calcium 20 Mg Tablet) 20 mg PO BEDTIME [facility] Last Admin: 04/13/21 20:05 Dose: 20 mg Documented by: CARRILLO Digoxin (Digoxin 0.125 Mg Tablet) 0.125 mg PO Q2D [facility] Last Admin: 04/13/21 13:50 Dose: 0.125 mg Documented by: JUMA Lactated Ringer's (Lr) 1,000 mls @ 80 mls/hr IVCONT .[id number] [facility] Stop: 04/14/21 20:29 Last Admin: 04/14/21 10:12 Dose: 80 mls/hr Documented by: ROSALINDA Levothyroxine Sodium (Levothyroxine Sodium 50 Mcg Tablet) 50 mcg PO DAILY@0600 [facility] Last Admin: 04/14/21 05:05 Dose: Not Given Documented by: CARRILLO Non-Admin Reason: Patient Asleep Metoprolol Succinate (Metoprolol Succinate Er 50 Mg Tab.Er.24h) 50 mg PO DAILY [facility]; Protocol Last Admin: 04/14/21 10:12 Dose: 50 mg Documented by: ROSALINDA Pharmacy Consult (Consult Rx Perform Med Rec) 1 each MISCELLANE ONCE PRN PRN Reason: Consult order Labs CBC & Chem 7: 04/13/21 06:50 04/13/21 06:50 Assessment and Plan (1) Left hemiparesis: Status: Acute (2) Traumatic hematoma of left thigh: Status: Acute (3) HTN (hypertension): Status: Acute Assessment and Plan: This is an 85-year-old female with past medical history of aortic stenosis,? atrial fibrillation ( on Eliquis)? hypertension,? chronic kidney disease stage III,CAD s/p MICHAEL, congestive heart failure,? hypothyroidism who was originally brought to the ED after sustaining mechanical fall found to have left thigh/hip hematoma and afib rvr with hypotension admitted to the ICU for hypovolemic shock and pressor support who developed left side weakness and left facial droop downgraded to the medical floor 04/10 acute stroke Patient with acute development of left upper extremity weakness and facial droop on 04/10. CT head obtained -? no evidence of intracranial hemorrhage.? Patient not a tPA candidate secondary to large subacute thigh hematoma with drop in hemoglobin and not a retrieval procedure candidate secondary to underlying code status seen by neurology, no MRI necessary repeat brain CT from 04/12 showing focal hypodensity in right precentral gyrus seen by speech, upgraded to pureed diet with strict aspiration precautions and assistance with feeding seen by PT, rec STR with possible transition to LTC LDL 111, pt listed allergy of muscle aches with statin, will start with low dose and see how she responds. if able to tolerate can uptitrate no asa at this time due to anemia/large hematoma (if eliquis is continued, may not need asa in addition) afib with RVR initially hypotensive and BB stopped in ICU then started on amiodarone HR under better control continue metoprolol, digoxin amiodorone discontinued per cardiology rec cardiology following h/o frequent falls, making AC difficult. although given current hemiparesis, pt not likely to be ambulatory. given thigh hematoma will continue to hold ac for now, likely for 7-10 days HTN continue metoprolol, increase norvasc follow bp closely thigh hematoma H/H stable follow CBC anticoagulation on hold for now Hypothyroidism Continue Synthroid code status dnr/dni attending - dr. bernard HCP and daughter Stormy [phone], pt requested daughter Stormy be primary contact dispo- accepted to [facility] in [place] for acute rehab per daughter request Quality Stroke Does the patient have a stroke diagnosis?: No VTE Prior VTE?: No VTE Risk Level:: Medical - moderate - high VTE Device Contraindication: Treatment Not Indicated VTE Drug Contraindication: N/A - Med Ordered
--- NOTE | 2021-04-14 13:41 | PM.PNCARD ---
Subjective Subjective Date of Service: 04/14/21 Interval history: Tired. Denying any active issues. Heart rate controlled better. Physical Exam Vital Signs: Last Vital Signs Temp 97.2 F 04/14/21 12:00 Pulse 89 04/14/21 12:00 Resp 18 04/14/21 12:00 BP 195/93 H 04/14/21 12:00 Pulse Ox 95 04/14/21 12:00 Oxygen Flow Rate 4 04/09/21 15:08 BMI result Body Mass Index 32.1 GENERAL APPEARANCE: in no acute distress. left sided facial droop. Depressed. NECK: no carotid bruit, no jugular venous distention. SKIN: no suspicious lesions, warm and dry. HEART: no murmurs, irregular rate and rhythm. tachycardia. LUNGS: clear to auscultation bilaterally. ABDOMEN: soft, nontender. EXTREMITIES: no edema. left hip area - hematoma and bruising. PERIPHERAL PULSES: equal. NEUROLOGIC: left sided flaccid paralysis. Objective Labs and Meds Result diagrams: 04/13/21 06:50 04/13/21 06:50 Progress Note: A&P Assessment and plan (1) HTN (hypertension): Status: Acute (2) Atrial fibrillation with rapid ventricular response: Status: Acute Assessment and Plan: 85-year-old female with mechanical fall and left leg hematoma with hypovolemic shock and AFib with RVR. She has been taken off anticoagulation. On digoxin and beta-cj and good rate control. Blood pressure control is poor. Please titrate the amlodipine to 5 mg. Also add hydrochlorothiazide 12.5 mg once a day. She had previously multiple falls and was following with Dr. Luu at [facility] who is her morals squad police officer. I think the decision about anticoagulation can be deferred to him. In my opinion with her flaccid paralysis involving the left side of the body her mobility will be poor and she likely will need long-term care. In this scenario with the risk of fall is lower than when she was ambulating. Again this can be discussed with her morals squad police officer as outpatient. Also she had a hematoma in the left thigh. Thank you for allowing me to participate in the care of your patient. Please feel free to contact me if you have any questions. Fall Risk Details Current Medications: Current Medications Acetaminophen (Acetaminophen 325 Mg Tablet) 650 mg PO Q6H PRN PRN Reason: Pain, Moderate (Pain Scale 4-6 Last Admin: 04/13/21 17:10 Dose: 650 mg Documented by: Amlodipine Besylate (Amlodipine Besylate 5 Mg Tablet) 5 mg PO DAILY [facility]; Protocol Atorvastatin Calcium (Atorvastatin Calcium 20 Mg Tablet) 20 mg PO BEDTIME [facility] Last Admin: 04/13/21 20:05 Dose: 20 mg Documented by: Digoxin (Digoxin 0.125 Mg Tablet) 0.125 mg PO Q2D [facility] Last Admin: 04/13/21 13:50 Dose: 0.125 mg Documented by: Levothyroxine Sodium (Levothyroxine Sodium 50 Mcg Tablet) 50 mcg PO DAILY@0600 [facility] Last Admin: 04/14/21 05:05 Dose: Not Given Documented by: Metoprolol Succinate (Metoprolol Succinate Er 50 Mg Tab.Er.24h) 50 mg PO DAILY [facility]; Protocol Last Admin: 04/14/21 10:12 Dose: 50 mg Documented by: Pharmacy Consult (Consult Rx Perform Med Rec) 1 each MISCELLANE ONCE PRN PRN Reason: Consult order Time Spent With Patient Time: Total time spent is greater than 50% in coordination of care (as documented) at patient's floor/unit and/or counseling patient: Time with patient: 15 - 24 minutes Progress Note: Quality Stroke Does the patient have a stroke diagnosis?: No Procedures Date of Service Date of Service: 04/14/21
[2021-04-14] MEDS: Atorvastatin Calcium 20 MG TABLET PO (19:38)
[2021-04-15 03:46] VITALS: BP 149/89; PULSE 101; RESP 20; TEMP 37.1; O2SAT 96
[2021-04-15] MEDS: Levothyroxine Sodium 50 MCG TABLET PO (05:12)
[2021-04-15 07:29] LABS: MANUAL DIFF FLAG NO
[2021-04-15 07:34] LABS: Basophils Percent Auto 0.2 % (0-2); Eosinophils Absolute Auto 0.1 X10*3/uL (0.0-0.4); Eosinophils Percent Auto 0.7 % (0-4); Hematocrit 35.8 % (37.0-47.0); Hemoglobin 11.8 g/dl (12.0-16.0); Imm Gran Abs Auto 0.07 X10*3/uL (0.00-0.03); Imm Gran Pct Auto 0.7 % (0.0-0.4); Lymphocytes Absolute Auto 1.7 X10*3/uL (1.2-4.9); Lymphocytes Percent Auto 16.3 % (20-40); Mean Corpuscular Hemoglobin 33.1 pg (27.0-33.0); Mean Corpuscular Volume 100.3 fL (80.0-98.0); Mean Platelet Volume 10.7 fL (9.4-12.3); Monocytes Absolute Auto 1.3 X10*3/uL (0.1-1.2); Monocytes Percent Auto 12.5 % (2-11); NRBC Pct Auto 0.2 /100WBC (0.0-0.2); Neutrophils Absolute Auto 7.4 x10*3/uL (2.0-8.3); Neutrophils Percent Auto 69.6 % (45-73); Platelet Count 347 X10*3/uL (160-400); Red Blood Count 3.57 X10*6/uL (4.20-5.50); Red Cell Distribution Width 15.2 % (11.0-16.0); White Blood Count 10.6 X10*3/uL (4.8-10.8)
[2021-04-15 07:51] LABS: Anion Gap 13 (12-20); Blood Urea Nitrogen 25 mg/dL (9-16); Calcium 9.2 mg/dL (8.4-10.2); Carbon Dioxide 27 mmol/L (22-29); Chloride 107 mmol/L (96-108); Creatinine Clr Calc Pharmacy 44.8; Estimated Glomerular Filt Rate 58; Glucose Random 107 mg/dL (60-115); Potassium 3.8 mmol/L (3.3-5.1); Sodium 143 mmol/L (135-145)
[2021-04-15 08:00] VITALS: BP 159/73; PULSE 95; RESP 18; TEMP 36.4; O2SAT 95
--- NOTE | 2021-04-15 09:26 | PM.PNCARD ---
Subjective Subjective Date of Service: 04/15/21 <KASSANDRA Bills - Last Filed: 04/15/21 10:04> 04/15/21 <Chris Posadas MD - Last Filed: 04/15/21 12:30> Principal diagnosis: Afib, left thigh hematoma, CVA <KASSANDRA Bills - Last Filed: 04/15/21 10:04> Interval history: Cardiology follow up for afib. Seen at 0850. Today she is observed resting in bed without acute distress. She does respond appropriately to questions and follows commands. Left facial droop noted, left hemiparesis. Denies having pain, sob. Does state I don't know to some questions. Has baseline reported hx of forgetfullness. <KASSANDRA Bills - Last Filed: 04/15/21 10:04> Review of Systems Review of Systems as above, limited due to her medical condition <KASSANDRA Bills - Last Filed: 04/15/21 10:04> Yes Unobtainable due to mental condition <KASSANDRA Bills - Last Filed: 04/15/21 10:04> Physical Exam Vital Signs: Last Vital Signs Temp 97.6 F 04/15/21 08:00 Pulse 95 04/15/21 08:00 Resp 18 04/15/21 08:00 BP 159/73 H 04/15/21 08:00 Pulse Ox 95 04/15/21 08:00 Oxygen Flow Rate 4 04/09/21 15:08 BMI result Body Mass Index 32.1 <KASSANDRA Bills - Last Filed: 04/15/21 10:04> Const Other: oriented x2 <KASSANDRA Bills - Last Filed: 04/15/21 10:04> General: cooperative, no acute distress, alert and awake <KASSANDRA Bills Last Filed: 04/15/21 10:04> Neck Neck: Yes normal visual inspection and Yes no JVD <KASSANDRA Bills - Last Filed: 04/15/21 10:04> Resp Effort & Inspection: normal respiratory effort and not labored <KASSANDRA Bills - Last Filed: 04/15/21 10:04> Auscultation: clear to auscultation bilaterally, no crackles, no rales, no rhonchi and no wheezes <NINA BillsC - Last Filed: 04/15/21 10:04> Cardio Palpation: normal PMI <NINA BillsC - Last Filed: 04/15/21 10:04> Rate: regular rate <NINA BillsC - Last Filed: 04/15/21 10:04> Rhythm: abnormal rhythm irregularly irregular <Anahi Pozo NPC - Last Filed: 04/15/21 10:04> Heart sounds: S1 normal heart sound present and S2 normal heart sound present <Anahi Pozo NPC - Last Filed: 04/15/21 10:04> GI Inspection: Yes normal to inspection <Anahi Pozo NPC - Last Filed: 04/15/21 10:04> Extrem Other: Left sided weakness <NINA BillsC - Last Filed: 04/15/21 10:04> General: Yes normal to inspection and No edema <Anahi Pozo NPC - Last Filed: 04/15/21 10:04> Objective Labs and Meds Result diagrams: : 04/15/21 06:49 04/15/21 06:49 <Anahi Pozo NPC - Last Filed: 04/15/21 10:04> Lab results: Laboratory Results - last 24 hr 04/15/21 04/15/21 06:49 06:49 WBC 10.6 RBC 3.57 L Hgb 11.8 L Hct 35.8 L MCV 100.3 H MCH 33.1 H MCHC 33.0 RDW 15.2 Plt Count 347 MPV 10.7 Immature Gran % (Auto) 0.7 H Neut % (Auto) 69.6 Lymph % (Auto) 16.3 L [place] % (Auto) 12.5 H Eos % (Auto) 0.7 Baso % (Auto) 0.2 Lymph # (Auto) 1.7 [place] # (Auto) 1.3 H Eos # (Auto) 0.1 Baso # (Auto) 0.0 Abs Immat Gran (auto) 0.07 H Absolute Neuts (auto) 7.4 Absolute Nucleated RBC 0.020 H Nucleated RBC % (auto) 0.2 Sodium 143 Potassium 3.8 Chloride 107 Carbon Dioxide 27 Anion Gap 13 BUN 25 H D Creatinine 0.93 Estim Creat Clear Calc 44.8 Estimated GFR 58 Random Glucose 107 Calcium 9.2 D <KASSANDRA Bills - Last Filed: 04/15/21 10:04> Progress Note: A&P Assessment and plan (1) Atrial fibrillation: Status: Acute <KASSANDRA Bills - Last Filed: 04/15/21 10:04> Assessment and Plan: Hx of PAF. At home on Metoprolol for rate control and Eliquis for anticoagulation. Fall prior to admit resulting in left thigh hematoma with hypotension, hypovolemic shock. EKG/ Tele initially showing afib RVR. Had been cared for by assembler product and was on Amiodarone drip, pressors. Echo showed EF 60-65% and no regional WMA. - Afib rates and BP did stabilize. Now on IMC and Tele showing afib, occ PVCs, rate 90-100. On Metoprolol xl 50mg daily and Digoxin 0.125mg EOD. Cr 0.93. Metoprolol dose can be further increased if needed for rates running > 100. Her anticoagulation has been held since admit 04/08. She did have findings of new CVA with left weakness, on 04/10. Hgb had dropped to 8.5, from 14.5 with her hematoma - Was transfused 04/11 and hgb rising in last 3 days. Hgb 11.8 today. No signs of active bleeding. She continues to have a high fall risk however with new CVA, she will likely be going to a rehab/SNF after discharge. This will provide her the supervision needed to reduce her fall risk. CHADSVASc score 7. High risk for further strokes. Will restart Eliquis 5 mg bid, which is the appropriate dose for her weight, creatinine. We will sign off. She can follow with her usual project controls specialist - Dr Luu at [facility]. <KASSANDRA Bills - Last Filed: 04/15/21 10:04> Hx of PAF. At home on Metoprolol for rate control and Eliquis for anticoagulation. Fall prior to admit resulting in left thigh hematoma with hypotension, hypovolemic shock. EKG/ Tele initially showing afib RVR. Had been cared for by assembler product and was on Amiodarone drip, pressors. Echo showed EF 60-65% and no regional WMA. - Afib rates and BP did stabilize. Now on IMC and Tele showing afib, occ PVCs, rate 90-100. On Metoprolol xl 50mg daily and Digoxin 0.125mg EOD. Cr 0.93. Metoprolol dose can be further increased if needed for rates running > 100. Her anticoagulation has been held since admit 04/08. She did have findings of new CVA with left weakness, on 04/10. Hgb had dropped to 8.5, from 14.5 with her hematoma - Was transfused 04/11 and hgb rising in last 3 days. Hgb 11.8 today. No signs of active bleeding. She continues to have a high fall risk however with new CVA, she will likely be going to a rehab/SNF after discharge. This will provide her the supervision needed to reduce her fall risk. CHADSVASc score 7. High risk for further strokes. Will restart Eliquis 5 mg bid, which is the appropriate dose for her weight, creatinine. We will sign off. She can follow with her usual project controls specialist - Dr Luu at [facility]. Patient seen and examined. Case discussed with Anahi. Patient developed CVA while being off oral anticoagulation. Resume Eliquis 5 mg b.i.d. as patient is being discharged to observed facility with senior living facility. In long-term given her recurrent fall issues and admission with hematoma, consider alternative therapy such as Watchman device. Will be pursued by her project controls specialist. Continue rate control therapy. Overall prognosis guarded. Will sign of the case. <Chris Posadas MD - Last Filed: 04/15/21 12:30> (2) CVA (cerebral vascular accident): Status: Acute <KASSANDRA Bills - Last Filed: 04/15/21 10:04> Assessment and Plan: As above. She was not a candidate for TPA due to hematoma left thigh. Neurology has seen, note reviewed. <KASSANDRA Bills - Last Filed: 04/15/21 10:04> (3) Hypotension: Status: Acute <KASSANDRA Bills - Last Filed: 04/15/21 10:04> Assessment and Plan: Resolved. Was most likely related to the hematoma. <KASSANDRA Bills - Last Filed: 04/15/21 10:04> (4) CAD (coronary artery disease): Status: Acute <KASSANDRA Bills - Last Filed: 04/15/21 10:04> Assessment and Plan: Notes from her project controls specialist reviewed. Hx of CAD with MICHAEL to the RCA and mid LAD with most recent stenting 02/2019. She was on Plavix at time of admit, which had been stopped. No need to restart plavix as her last stenting was > 1 year ago. No reports of CP. Troponins normal range this admit. EKGs without ischemia. Continue Metoprolol, Atorvastatin. No need for aspirin as she will be restarted on Eliquis. <KASSANDRA Bills - Last Filed: 04/15/21 10:04> Fall Risk Details Current Medications: Current Medications Acetaminophen (Acetaminophen 325 Mg Tablet) 650 mg PO Q6H PRN PRN Reason: Pain, Moderate (Pain Scale 4-6 Last Admin: 04/13/21 17:10 Dose: 650 mg Documented by: Amlodipine Besylate (Amlodipine Besylate 5 Mg Tablet) 5 mg PO DAILY [facility]; Protocol Atorvastatin Calcium (Atorvastatin Calcium 20 Mg Tablet) 20 mg PO BEDTIME [facility] Last Admin: 04/14/21 19:38 Dose: 20 mg Documented by: Digoxin (Digoxin 0.125 Mg Tablet) 0.125 mg PO Q2D [facility] Last Admin: 04/13/21 13:50 Dose: 0.125 mg Documented by: Levothyroxine Sodium (Levothyroxine Sodium 50 Mcg Tablet) 50 mcg PO DAILY@0600 [facility] Last Admin: 04/15/21 05:12 Dose: 50 mcg Documented by: Metoprolol Succinate (Metoprolol Succinate Er 50 Mg Tab.Er.24h) 50 mg PO DAILY [facility]; Protocol Last Admin: 04/14/21 10:12 Dose: 50 mg Documented by: Pharmacy Consult (Consult Rx Perform Med Rec) 1 each MISCELLANE ONCE PRN PRN Reason: Consult order <KASSANDRA Bills - Last Filed: 04/15/21 10:04> Time Spent With Patient Time: Total time spent is greater than 50% in coordination of care (as documented) at patient's floor/unit and/or counseling patient: <KASSANDRA Bills - Last Filed: 04/15/21 10:04> Time with patient: 25 - 35 minutes <KASSANDRA Bills - Last Filed: 04/15/21 10:04> Progress Note: Quality Stroke Does the patient have a stroke diagnosis?: No <KASSANDRA Bills - Last Filed: 04/15/21 10:04> Procedures Date of Service Date of Service: 04/15/21 <KASSANDRA Bills - Last Filed: 04/15/21 10:04>
[2021-04-15] MEDS: amLODIPine Besylate 5 MG TABLET PO (09:35)
[2021-04-15] MEDS: Metoprolol Tartrate 25 MG TABLET PO (10:05)
[2021-04-15 11:07] VITALS: BP 180/86; PULSE 99; RESP 18; TEMP 36.4; O2SAT 95
--- NOTE | 2021-04-15 12:40 | MHC.CM.PN ---
pt ana bhatt today at 2:00 to [employer] message lefbrijesh for coy ballesteros [phone] elroy booked
--- NOTE | 2021-04-15 12:43 | PM.DS ---
DS: Providers Provider Date of Service: 04/15/21 Date of admission: 04/09/21 15:08 Primary care physician: Nick Wilson MD Consults: 04/10/21 16:37 Consult to Neurology Routine Consulting Provider: [facility] Reason for consultation: New facial droop and left upper extremity weakness Has provider been notified: Yes 04/11/21 08:09 Consult to Cardiology Routine Consulting Provider: Ankit Batres Reason for consultation: afib rvr Has provider been notified: No Attending physician on discharge: Med Rubio Discharging clinician: Sussy Olsen DS: Diagnosis Discharge Diagnosis (1) Atrial fibrillation: Status: Acute (2) CVA (cerebral vascular accident): Status: Acute (3) Hypotension: Status: Acute (4) CAD (coronary artery disease): Status: Acute DS: Summary Hospital Course Hospital Course: HP as per admitting provider 85-year-old female with past medical history of aortic stenosis,? atrial fibrillation ( on Eliquis)? hypertension,? chronic kidney disease stage III,CAD s/p MICHAEL, congestive heart failure,? hypothyroidism,? orthostatic tremors, and? multiple falls at home presented to? emergency department? after? sustaining a? witnessed fall at home on 04/08/21. According to the , patient might have struck her head during the fall, but no loss? of consciousness.? Patient does have a baseline confusion? and forgetfulness that has worsened in the past year. In the emergency room,? patient? initial vital signs and laboratory data were stable on 04/08/21. There was a noticeable hematoma on left hip noted on assessment and confirmed in imaging.? Head CT/cervical spine negative for? acute issues. She was kept in the emergency room for a day for observation.?Today,? Patient went? into AFib RVR to 160s,? blood pressure dropped to SBP 70s, and? hematoma was noted to increase in size in imaging. Head CT continues to show no acute bleed.? She required a central line placement and was started on? phenylephrine.?Cardiology consulted in the ED, Dr Payne, who stated hypotension likely a result from is hypovolemia from blood loss forces vs infective process, he also believed AFIB a result from hypotenson. She has? mild increase in WBC, no clear source for infection, Urine negative for UTI, no chest pathology and no abdominal complaints.? Hemoglobin did drop from 12.9 to 11.6.?Patient be admitted to the ICU for hypovolemic shock requiring pressor support . Acute stroke Patient with acute development of left upper extremity weakness and facial droop on 04/10. CT head obtained -? no evidence of intracranial hemorrhage.? Patient not a tPA candidate secondary to large subacute thigh hematoma with drop in hemoglobin and not a retrieval procedure candidate secondary to underlying code status seen by neurology, no MRI necessary repeat brain CT from 04/12 showing focal hypodensity in right precentral gyrus seen by speech, upgraded to pureed diet with strict aspiration precautions and assistance with feeding seen by PT, rec STR with possible transition to LTC LDL 111, pt listed allergy of muscle aches with statin, will start with low dose and see how she responds. if able to tolerate can uptitrate no asa at this time due to anemia/large hematoma (if eliquis is continued, may not need asa in addition) Afib with RVR started on amiodarone then subsequently discontinued HR under better control continue metoprolol, digoxin cardiology following h/o frequent falls, making AC difficult. although given current hemiparesis, pt not likely to be ambulatory. given thigh hematoma will continue to hold ac for 10 days thigh hematoma H/H stable follow CBC restart Eliquis in 10 days Time Spent with Patient Time attestation: Total time spent providing and/or coordinating discharge services: Discharge coordination time: Greater than 30 minutes Quality: Stroke Does the patient have a stroke diagnosis?: Yes Reason for No Anti-thrombotic at DC: Contraindicated Reason for No Anticoagulant at DC: Complication of medical care (hematoma, on hold for 10 days ) Reason Not Initiating IV-Tpa: Contraindicated Reason for No Anti-thrombotic by Day Two: Contraindicated Reason for No Statin at DC: N/A - Med Ordered Physical Exam Vital Signs: Vital Signs: Last Vital Signs Temp 97.6 F 04/15/21 11:07 Pulse 99 04/15/21 11:07 Resp 18 04/15/21 11:07 BP 180/86 H 04/15/21 11:07 Pulse Ox 95 04/15/21 11:07 Oxygen Flow Rate 4 04/09/21 15:08 BMI result Body Mass Index 32.1 Appearing in no acute distress head is normocephalic atraumatic eyes pupils are PERRLA sclera is anicteric mouth throat mucous membranes are intact and moist neck is supple no lymphadenopathy, no JVD noted lung sounds are clear to auscultation heart regular rate rhythm, clear S1, S2 positive bowel sounds, abdomen is soft, nontender neuro patient is alert , left-sided hemiparesis DS: Data Data Completed and Pending Labs on day of discharge: Laboratory Results - last 24 hr 04/15/21 04/15/21 06:49 06:49 WBC 10.6 RBC 3.57 L Hgb 11.8 L Hct 35.8 L MCV 100.3 H MCH 33.1 H MCHC 33.0 RDW 15.2 Plt Count 347 MPV 10.7 Immature Gran % (Auto) 0.7 H Neut % (Auto) 69.6 Lymph % (Auto) 16.3 L Jefferson % (Auto) 12.5 H Eos % (Auto) 0.7 Baso % (Auto) 0.2 Lymph # (Auto) 1.7 Jefferson # (Auto) 1.3 H Eos # (Auto) 0.1 Baso # (Auto) 0.0 Abs Immat Gran (auto) 0.07 H Absolute Neuts (auto) 7.4 Absolute Nucleated RBC 0.020 H Nucleated RBC % (auto) 0.2 Sodium 143 Potassium 3.8 Chloride 107 Carbon Dioxide 27 Anion Gap 13 BUN 25 H D Creatinine 0.93 Estim Creat Clear Calc 44.8 Estimated GFR 58 Random Glucose 107 Calcium 9.2 D Discharge Plan Discharge Anticipated Discharge Date/Time: 04/15/21 12:37 Patient Disposition: Xfer Inpatient Rehab Fac Discharge Diagnosis: Stroke AFib RVR [facility]errals: [facility] [Other] - 1 Week Nick Wilson MD [Primary Care Provider] - 1 Week Discharge Medications: New atorvastatin 20 mg Tablet 20 mg PO BEDTIME Qty: 30 RF: 0 amlodipine 5 mg Tablet 5 mg PO DAILY Qty: 30 RF: 0 digoxin 125 mcg (0.125 mg) Tablet 125 mcg PO Q2D Qty: 15 RF: 0 Continued furosemide 40 mg tablet 1 tab PO DAILY RF: 0 metoprolol succinate 50 mg tablet extended release 24 hr 1 tab PO DAILY RF: 0 clopidogrel 75 mg tablet 1 tab PO DAILY RF: 0 levothyroxine 50 mcg tablet 1 tab PO DAILY RF: 0 ezetimibe 10 mg tablet 1 tab PO DAILY RF: 0 potassium chloride [Klor-Con M10] 10 mEq tablet,ER particles/crystals 40 meq PO DAILY RF: 0 duloxetine 30 mg capsule,delayed release(DR/EC) 1 cap PO BID RF: 0 calcium citrate-vitamin D3 200 mg-6.25 mcg (250 unit) tablet 2 tab PO BEDTIME RF: 0 icosapent ethyl [Vascepa] 1 gram capsule 2 cap PO BID RF: 0 Trelegy Ellipta 100-62.5-25 mcg blister with device 1 puff inhalation DAILY RF: 0 Held Eliquis 5 mg Tablet 5 mg PO BID RF: 0 Hold Instructions: Resume on 04/24/21. Discharge Orders: Discharge Order (Routine); Ordered 04/15/21 Ordered By: Sussy Olsen Diet: advance to usual diet Activity on Discharge: As tolerated Stand Alone Forms: Patient Portal Discharge page Care Plan Goals: continued resolution of stroke symptoms Health Concerns: Stroke AFib RVR Plan of Treatment: see discharge summary Assessment: You will be discharged to acute rehab Take medications as prescribed Follow-up with primary care as needed
[2021-04-15] MEDS: Digoxin 0.125 MG TABLET PO (12:55)
--- NOTE | 2021-04-15 13:35 | MHC.INPTTRAN ---
left side remains flaccis. is on puree diet, with thickened liq. 1:1 feed. Pockets food at times. Is alert and oriented. follows directions and apeech is slow but appropriate. Incont of B@B VSS. crush meds in applesauce.
[2021-04-15 13:40] LABS: COVID-19 Test Negative (Negative)
[2021-04-15] MEDS: Apixaban 5 MG TABLET PO (15:02)
== END 2021-04-15 15:19 | DRG 682 ==
LOC: HO.ED 04-09 14:45 → HO.ICU 04-09 15:24 → HO.IMC 04-10 15:52
PROVIDERS: Emergency Medicine; Family Medicine; Nurse Practitioner Family; Physician Assistant; Physician Assistant Medical; Admitting Provider Internal Medicine Pulmonary Disease; Emergency Provider Emergency Medicine; PCP Internal Medicine; Visit Provider Nurse Practitioner Acute Care
DX: N17.9 Acute kidney failure, unspecified (principal); R57.1 Hypovolemic shock; I63.9 Cerebral infarction, unspecified; G93.40 Encephalopathy, unspecified; G81.94 Hemiplegia, unspecified affecting left nondominant side; G62.9 Polyneuropathy, unspecified; I48.91 Unspecified atrial fibrillation; I25.10 Atherosclerotic heart disease of native coronary artery without angina pectoris; E03.9 Hypothyroidism, unspecified; R29.6 Repeated falls; Z91.81 History of falling; I12.9 Hypertensive chronic kidney disease with stage 1 through stage 4 chronic kidney disease, or unspecified chronic kidney disease; N18.30 Chronic kidney disease, stage 3 unspecified; R29.810 Facial weakness; Z20.822 Contact with and (suspected) exposure to COVID-19; I95.9 Hypotension, unspecified; F02.80 Dementia in other diseases classified elsewhere, unspecified severity, without behavioral disturbance, psychotic disturbance, mood disturbance, and anxiety; S70.12XA Contusion of left thigh, initial encounter; W18.30XA Fall on same level, unspecified, initial encounter; E87.5 Hyperkalemia; I25.2 Old myocardial infarction; Z88.0 Allergy status to penicillin; Z88.2 Allergy status to sulfonamides; G30.9 Alzheimer's disease, unspecified; Z79.02 Long term (current) use of antithrombotics/antiplatelets; Z79.890 Hormone replacement therapy; Z79.899 Other long term (current) drug therapy; Z66 Do not resuscitate
CPT/HCPCS: 36415; 70450; 71045; 71046; 72100; 72125; 73502; 73700; 73701; 80048; 80053; 80061; 80076; 81001; 81003; 82550; 82803; 82947; 83605; 83735; 83880; 84100; 84443; 84484; 85025; 85610; 86850; 86900; 86901; 87040; 87635; 92610; 93005; 93308; 96361; 96374; 96375; 97162; 97167; 99285; C1758; J0282; J0692; J1160; J2270; J2370; J2405; J3370; P9047; Q9957; Q9967

== ENCOUNTER 2021-04-27 12:50 | Outpatient (REF) | payer OTHER, MEDICARE, SELFPAY ==
--- NOTE | ~2021-04-27 | CT_ITS ---
EXAMINATION: CT HEAD WITHOUT CONTRAST CLINICAL INFORMATION: Altered mental status change. COMPARISON: CT brain 04/11/2021 TECHNIQUE: Contiguous axial imaging was performed from the skull base to vertex without intravenous administration of contrast. This CT examination was performed using dose optimization techniques as appropriate, variously including the following: *Automated exposure control *Adjustment of mA and/or kV according to patient size (this includes techniques or standardized protocols for targeted exams where dose is matched to indication/reason for exam; i.e. extremities or head) *Use of iterative reconstruction technique DLP: 692 mGy-cm FINDINGS: There is right frontal lobe hypodensity likely subacute to old infarct with edema. This was visualized on a previous CT brain exam There is no acute intra-axial, extra-axial bleed, masses or midline shift. The lateral ventricles are symmetrical in size and configuration but enlarged. There is diffuse periventricular hypodensity in both cerebral hemispheres without mass effect bone windows reveal no calvarial abnormality there is no scalp soft tissue abnormality. Bilateral paranasal sinuses and mastoid air cells are well-aerated. 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 There is no new areas of acute infarct, acute bleed or edema. Moderate cerebral volume loss with chronic small vessel ischemic changes.
== END 2021-04-27 12:51 | disposition home or self-care (01) ==
LOC: HO.CT 12:50
PROVIDERS: Visit Provider Physician Assistant Medical
DX: Z86.73 Personal history of transient ischemic attack (TIA), and cerebral infarction without residual deficits (principal)
CPT/HCPCS: 70450